=== PATIENT | male | born 1955 | race African-American/Black ===

== ENCOUNTER 2017-06-05 20:56 | Inpatient (IN) | payer OTHER ==
[~2017-06-05] VITALS: Ht 182.9 cm; Wt 113.4 kg
[2017-06-05] MEDS ORDERED: IPRATROPIUM BROMIDE (0.02%) 0.5MG/2.5ML NEB HHN STA (21:25)
[2017-06-05] MEDS ORDERED: ALBUTEROL (0.083%) 2.5MG/3ML NEB HHN STA (21:25)
[2017-06-05] MEDS ORDERED: METHYLPREDNISOLONE SOD SUCC 125 MG/2 ML VIAL IV STA (21:25)
[2017-06-05] MEDS ORDERED: MAGNESIUM 2 G PREMIX 50 ML IV ONE (21:30)
[2017-06-05 21:55] LABS: BASOPHILS % 0.8 % (0.0-2.0); EOSINOPHILS % 3.8 % (0.0-5.0); HEMATOCRIT. 34.1 % (42.0-52.0); HEMOGLOBIN. 11.2 g/dL (14.0-18.0); LYMPHOCYTES % 15.9 % (20.0-50.0); MEAN CORPUSCULAR HEMOGLOBIN 29.3 pg (28.0-32.0); MEAN CORPUSCULAR VOLUME 89.3 fL (80.0-94.0); MEAN PLATELET VOLUME 9.2 fl (7.4-10.4); MONOCYTES % 6.9 % (2.0-8.0); NEUTROPHILS % 72.6 % (40.0-76.0); PLATELET 157 x1000/uL (130-400); RED BLOOD CELL COUNT 3.82 mill/uL (4.7-6.1); RED CELL DISTRIBUTION WIDTH 14.3 % (11.6-14.6)
[2017-06-05 21:56] LABS: CHLORIDE 113 mEq/L (98-107)
[2017-06-05 21:59] LABS: INR 1.1; PROTHROMBIN TIME 11.4 sec (9.4-11.6)
[2017-06-05] MEDS ORDERED: FUROSEMIDE 20MG/2ML VIAL IVP ONE (22:00)
[2017-06-05 22:08] LABS: CARBON DIOXIDE 25 mEq/L (21-32); CREATINE KINASE 322 IU/L (39-308); ETHANOL BLOOD < 10 mg/dL
[2017-06-05 22:09] LABS: CREATINE KINASE MB FRACTION 5.2 ng/mL (0.5-3.6)
[2017-06-05] MEDS ORDERED: CLONIDINE 0.1MG TABLET PO ONE (23:15)
[2017-06-06] VITALS (7 sets, daily range): BP systolic 107–176; BP diastolic 74–103
[2017-06-06] MEDS ORDERED: HYDRALAZINE 20MG/ML VIAL IV ONE
[2017-06-06] MEDS ORDERED: LISI40TA4 PO (01:12)
[2017-06-06] MEDS ORDERED: FURO40TA5 PO (01:12)
[2017-06-06] MEDS ORDERED: LISI-604 PO (01:12)
[2017-06-06] MEDS ORDERED: TERA5CAP4 PO (01:12)
[2017-06-06] MEDS ORDERED: TERA10CA4 PO (01:12)
[2017-06-06] MEDS ORDERED: MINO2.5T19 PO (01:12)
[2017-06-06] MEDS ORDERED: SPIR50TA26 PO (01:12)
[2017-06-06] MEDS ORDERED: ASPI-1159 PO (01:12)
[2017-06-06] MEDS ORDERED: SPIR25TA4 PO (01:12)
[2017-06-06] MEDS ORDERED: POTA20TA82 PO (01:12)
[2017-06-06] MEDS ORDERED: CARV25TA47 PO (01:12)
[2017-06-06] MEDS: IPRATROPIUM/ALBUTEROL 0.5-3(2.5)MG/3ML NEB HHN SCH ×5 (04:42→20:13)
[2017-06-06] MEDS: LISINOPRIL 40MG TABLET PO SCH ×2 (05:07→09:38)
[2017-06-06] MEDS: CARVEDILOL 25MG TABLET PO SCH ×3 (05:07→21:00)
[2017-06-06] MEDS: METHYLPREDNISOLONE SOD SUCC 40 MG/ML VIAL IV SCH ×3 (05:07→22:01)
[2017-06-06 07:36] LABS: HEMATOCRIT. 35.3 % (42.0-52.0); HEMOGLOBIN. 11.8 g/dL (14.0-18.0); MEAN CORPUSCULAR HEMOGLOBIN 29.9 pg (28.0-32.0); MEAN CORPUSCULAR VOLUME 89.6 fL (80.0-94.0); MEAN PLATELET VOLUME 9.7 fl (7.4-10.4); PLATELET 154 x1000/uL (130-400); RED BLOOD CELL COUNT 3.94 mill/uL (4.7-6.1); RED CELL DISTRIBUTION WIDTH 14.5 % (11.6-14.6)
[2017-06-06 07:51] LABS: CARBON DIOXIDE 25 mEq/L (21-32); CHLORIDE 109 mEq/L (98-107)
[2017-06-06] MEDS ORDERED: TERAZOSIN HCL 5MG CAPSULE PO SCH (09:00)
[2017-06-06] MEDS ORDERED: FUROSEMIDE 40MG TABLET PO SCH (09:00)
[2017-06-06] MEDS ORDERED: ENOXAPARIN 40MG/0.4ML SYR SUBCUT SCH (09:00)
[2017-06-06] MEDS ORDERED: FUROSEMIDE 40MG/4ML VIAL IVP SCH (09:00)
[2017-06-06] MEDS: SPIRONOLACTONE 50MG TABLET PO SCH (09:37)
[2017-06-06] MEDS: POTASSIUM CHLORIDE 20MEQ TABLET SR PO SCH (09:38)
[2017-06-06] MEDS: FUROSEMIDE 40MG/4ML VIAL IVP SCH (09:38)
[2017-06-06] MEDS: OMEPRAZOLE 20MG CAPSULE EXTENDED RELEASE PO SCH (09:38)
[2017-06-06] MEDS: MINOXIDIL 2.5MG TABLET PO SCH (09:39)
[2017-06-06] MEDS: ENOXAPARIN 30MG/0.3ML SYR SUBCUT SCH ×2 (09:40→21:59)
[2017-06-06] MEDS: ASPIRIN 81MG EC TABLET PO SCH (09:40)
[2017-06-06] MEDS ORDERED: AMLODIPINE 5MG TABLET PO SCH (10:00)
[2017-06-06] MEDS ORDERED: MEDICATION NOT ON FORMULARY EA (Terazosin Hcl 10 MG) PO SCH (21:00)
[2017-06-06] MEDS: TERAZOSIN HCL 5MG CAPSULE PO SCH (21:59)
[2017-06-07] VITALS: BP 149/79
[2017-06-07] MEDS: IPRATROPIUM/ALBUTEROL 0.5-3(2.5)MG/3ML NEB HHN SCH ×6 (00:04→20:50)
[2017-06-07 04:00] VITALS: BP 123/78
[2017-06-07] MEDS: METHYLPREDNISOLONE SOD SUCC 40 MG/ML VIAL IV SCH ×3 (06:08→21:15)
[2017-06-07 07:02] LABS: HEMOGLOBIN. 11.8 g/dL (14.0-18.0); MEAN PLATELET VOLUME 10.4 fl (7.4-10.4); PLATELET 156 x1000/uL (130-400); RED BLOOD CELL COUNT 3.93 mill/uL (4.7-6.1); RED CELL DISTRIBUTION WIDTH 14.3 % (11.6-14.6)
[2017-06-07 07:56] LABS: TROPONIN I 0.05 ng/mL (0.00-0.04)
[2017-06-07 08:00] VITALS: BP 150/86
[2017-06-07] MEDS ORDERED: AMLODIPINE 5MG TABLET PO SCH (09:00)
[2017-06-07] MEDS: OMEPRAZOLE 20MG CAPSULE EXTENDED RELEASE PO SCH (10:01)
[2017-06-07] MEDS: ASPIRIN 81MG EC TABLET PO SCH (10:01)
[2017-06-07] MEDS: POTASSIUM CHLORIDE 20MEQ TABLET SR PO SCH (10:03)
[2017-06-07] MEDS: SPIRONOLACTONE 50MG TABLET PO SCH (10:03)
[2017-06-07] MEDS: CARVEDILOL 25MG TABLET PO SCH ×2 (10:03→21:12)
[2017-06-07] MEDS: LISINOPRIL 40MG TABLET PO SCH (10:03)
[2017-06-07] MEDS: FUROSEMIDE 40MG/4ML VIAL IVP SCH (10:04)
[2017-06-07] MEDS: MINOXIDIL 2.5MG TABLET PO SCH (10:04)
[2017-06-07] MEDS: ENOXAPARIN 30MG/0.3ML SYR SUBCUT SCH (10:04)
[2017-06-07] MEDS: AMLODIPINE 5MG TABLET PO SCH (17:57)
[2017-06-07 19:40] LABS: PLATELET ESTIMATE NORMAL
[2017-06-07 20:00] VITALS: BP 137/65
[2017-06-07] MEDS: FUROSEMIDE 40MG TABLET PO SCH (21:08)
[2017-06-07] MEDS: AMIODARONE HCL 200 MG TABLET PO SCH (21:13)
[2017-06-07] MEDS: TERAZOSIN HCL 5MG CAPSULE PO SCH (21:13)
[2017-06-08] VITALS: BP 128/64
[2017-06-08] MEDS: IPRATROPIUM/ALBUTEROL 0.5-3(2.5)MG/3ML NEB HHN SCH ×6 (00:24→20:21)
[2017-06-08 00:25] LABS: PLATELET ESTIMATE NORMAL
[2017-06-08 04:00] VITALS: BP 127/68
[2017-06-08] MEDS: METHYLPREDNISOLONE SOD SUCC 40 MG/ML VIAL IV SCH ×3 (05:08→21:17)
[2017-06-08 06:57] LABS: HEMATOCRIT. 35.1 % (42.0-52.0); HEMOGLOBIN. 11.7 g/dL (14.0-18.0); MEAN CORPUSCULAR HEMOGLOBIN 29.5 pg (28.0-32.0); MEAN CORPUSCULAR VOLUME 88.7 fL (80.0-94.0); MEAN PLATELET VOLUME 9.9 fl (7.4-10.4); PLATELET 150 x1000/uL (130-400); RED BLOOD CELL COUNT 3.96 mill/uL (4.7-6.1); RED CELL DISTRIBUTION WIDTH 14.2 % (11.6-14.6)
[2017-06-08 08:00] VITALS: BP 145/94
[2017-06-08] MEDS: ENOXAPARIN 40MG/0.4ML SYR SUBCUT SCH (09:13)
[2017-06-08] MEDS: POTASSIUM CHLORIDE 20MEQ TABLET SR PO SCH (09:14)
[2017-06-08] MEDS: FAMOTIDINE 20MG TABLET PO SCH ×2 (09:15→21:17)
[2017-06-08] MEDS: FUROSEMIDE 40MG TABLET PO SCH ×2 (09:15→21:17)
[2017-06-08] MEDS: ASPIRIN 81MG EC TABLET PO SCH (09:15)
[2017-06-08] MEDS: LISINOPRIL 40MG TABLET PO SCH (09:16)
[2017-06-08] MEDS: AMLODIPINE 5MG TABLET PO SCH ×2 (09:16→18:06)
[2017-06-08] MEDS: MINOXIDIL 2.5MG TABLET PO SCH (09:17)
[2017-06-08] MEDS: CARVEDILOL 25MG TABLET PO SCH ×2 (09:17→21:00)
[2017-06-08] MEDS: AMIODARONE HCL 200 MG TABLET PO SCH ×2 (09:18→21:00)
[2017-06-08] MEDS: SPIRONOLACTONE 50MG TABLET PO SCH (09:18)
[2017-06-08 10:14] LABS: PLATELET ESTIMATE NORMAL
[2017-06-08 12:00] VITALS: BP 140/91
[2017-06-08 16:00] VITALS: BP 126/67
[2017-06-08 19:58] VITALS: BP 120/66
[2017-06-08] MEDS: TERAZOSIN HCL 5MG CAPSULE PO SCH (21:17)
[2017-06-09] VITALS: BP 123/82
[2017-06-09] MEDS: IPRATROPIUM/ALBUTEROL 0.5-3(2.5)MG/3ML NEB HHN SCH ×7 (00:25→23:33)
[2017-06-09 03:57] VITALS: BP 124/84
[2017-06-09] MEDS: METHYLPREDNISOLONE SOD SUCC 40 MG/ML VIAL IV SCH ×3 (05:07→21:39)
[2017-06-09 08:00] VITALS: BP 125/54
[2017-06-09] MEDS: FUROSEMIDE 40MG TABLET PO SCH ×2 (09:12→21:39)
[2017-06-09] MEDS: LISINOPRIL 40MG TABLET PO SCH (09:12)
[2017-06-09] MEDS: AMIODARONE HCL 200 MG TABLET PO SCH ×2 (09:12→21:39)
[2017-06-09] MEDS: ENOXAPARIN 40MG/0.4ML SYR SUBCUT SCH (09:12)
[2017-06-09] MEDS: POTASSIUM CHLORIDE 20MEQ TABLET SR PO SCH (09:12)
[2017-06-09] MEDS: SPIRONOLACTONE 50MG TABLET PO SCH (09:13)
[2017-06-09] MEDS: MINOXIDIL 2.5MG TABLET PO SCH (09:13)
[2017-06-09] MEDS: FAMOTIDINE 20MG TABLET PO SCH ×2 (09:13→21:39)
[2017-06-09] MEDS: CARVEDILOL 25MG TABLET PO SCH ×2 (09:13→21:39)
[2017-06-09] MEDS: AMLODIPINE 5MG TABLET PO SCH ×2 (09:13→16:10)
[2017-06-09] MEDS: ASPIRIN 81MG EC TABLET PO SCH (09:14)
[2017-06-09 12:00] VITALS: BP 115/78
[2017-06-09 16:10] VITALS: BP 108/73
[2017-06-09 20:00] VITALS: BP 119/71
[2017-06-09] MEDS: TERAZOSIN HCL 5MG CAPSULE PO SCH (21:40)
[2017-06-10] VITALS: BP 131/80
[2017-06-10 04:00] VITALS: BP 115/77
[2017-06-10] MEDS: IPRATROPIUM/ALBUTEROL 0.5-3(2.5)MG/3ML NEB HHN SCH ×5 (04:32→20:31)
[2017-06-10] MEDS: METHYLPREDNISOLONE SOD SUCC 40 MG/ML VIAL IV SCH ×3 (05:55→21:19)
[2017-06-10 07:37] LABS: HEMATOCRIT. 37.8 % (42.0-52.0); HEMOGLOBIN. 12.6 g/dL (14.0-18.0); MEAN CORPUSCULAR HEMOGLOBIN 29.7 pg (28.0-32.0); MEAN CORPUSCULAR VOLUME 88.9 fL (80.0-94.0); MEAN PLATELET VOLUME 10.4 fl (7.4-10.4); PLATELET 157 x1000/uL (130-400); RED BLOOD CELL COUNT 4.25 mill/uL (4.7-6.1)
[2017-06-10 08:00] VITALS: BP 123/73
[2017-06-10] MEDS: AMIODARONE HCL 200 MG TABLET PO SCH ×2 (08:26→21:19)
[2017-06-10] MEDS: LISINOPRIL 40MG TABLET PO SCH (08:26)
[2017-06-10] MEDS: SPIRONOLACTONE 50MG TABLET PO SCH (08:27)
[2017-06-10] MEDS: AMLODIPINE 5MG TABLET PO SCH ×2 (08:27→17:00)
[2017-06-10] MEDS: POTASSIUM CHLORIDE 20MEQ TABLET SR PO SCH (08:27)
[2017-06-10] MEDS: MINOXIDIL 2.5MG TABLET PO SCH (08:27)
[2017-06-10] MEDS: FUROSEMIDE 40MG TABLET PO SCH ×2 (08:27→21:19)
[2017-06-10] MEDS: ENOXAPARIN 40MG/0.4ML SYR SUBCUT SCH (08:27)
[2017-06-10] MEDS: ASPIRIN 81MG EC TABLET PO SCH (08:27)
[2017-06-10] MEDS: FAMOTIDINE 20MG TABLET PO SCH ×2 (08:27→21:19)
[2017-06-10] MEDS: CARVEDILOL 25MG TABLET PO SCH ×2 (08:27→21:19)
[2017-06-10 10:11] LABS: BG BASE EXCESS 0.7 mmol/L (-2.0-2.0); BG CARBOXYHEMOGLOBIN 0.1 % (0.5-1.5); BG DEOXYHEMOGLOBIN 5.5 % (0.0-5.0); BG FRACTION INSPIRED OXYGEN 21; BG METHEMOGLOBIN 1.4 % (0.0-1.5); BG OXYGEN SATURATION 94.4 % (92.0-98.5); BG PCO2 44.4 mmHg (35.0-45.0); BG PH 7.386 (7.350-7.450); BG PO2 75.2 mmHg (75.0-100.0); BG SAMPLE SITE RIGHT RADIAL; BG TOTAL HEMOGLOBIN 13.6 g/dL (12.0-18.0); BG VENT MODE ROOM AIR
[2017-06-10 12:00] VITALS: BP 126/77
[2017-06-10 16:00] VITALS: BP 113/66
[2017-06-10 16:06] LABS: PLATELET ESTIMATE NORMAL
[2017-06-10 20:00] VITALS: BP 115/64
[2017-06-10] MEDS: TERAZOSIN HCL 5MG CAPSULE PO SCH (21:19)
[2017-06-11 00:05] VITALS: BP 116/73
[2017-06-11] MEDS: IPRATROPIUM/ALBUTEROL 0.5-3(2.5)MG/3ML NEB HHN SCH ×5 (00:41→16:33)
[2017-06-11 04:00] VITALS: BP 130/75
[2017-06-11] MEDS: METHYLPREDNISOLONE SOD SUCC 40 MG/ML VIAL IV SCH ×2 (05:42→13:36)
[2017-06-11 06:16] LABS: HEMATOCRIT. 38.2 % (42.0-52.0); HEMOGLOBIN. 12.8 g/dL (14.0-18.0); MEAN CORPUSCULAR HEMOGLOBIN 29.9 pg (28.0-32.0); MEAN CORPUSCULAR VOLUME 88.9 fL (80.0-94.0); MEAN PLATELET VOLUME 10.3 fl (7.4-10.4); PLATELET 160 x1000/uL (130-400)
[2017-06-11 08:00] VITALS: BP 123/83
[2017-06-11] MEDS: MINOXIDIL 2.5MG TABLET PO SCH (10:03)
[2017-06-11] MEDS: AMLODIPINE 5MG TABLET PO SCH ×2 (10:04→17:00)
[2017-06-11] MEDS: ASPIRIN 81MG EC TABLET PO SCH (10:04)
[2017-06-11] MEDS: SPIRONOLACTONE 50MG TABLET PO SCH (10:04)
[2017-06-11] MEDS: LISINOPRIL 40MG TABLET PO SCH (10:04)
[2017-06-11] MEDS: FAMOTIDINE 20MG TABLET PO SCH (10:04)
[2017-06-11] MEDS: CARVEDILOL 25MG TABLET PO SCH (10:04)
[2017-06-11] MEDS: ENOXAPARIN 40MG/0.4ML SYR SUBCUT SCH (10:05)
[2017-06-11] MEDS: FUROSEMIDE 40MG TABLET PO SCH (10:05)
[2017-06-11] MEDS: POTASSIUM CHLORIDE 20MEQ TABLET SR PO SCH (10:05)
[2017-06-11] MEDS: AMIODARONE HCL 200 MG TABLET PO SCH (10:07)
[2017-06-11 10:08] LABS: PLATELET ESTIMATE NORMAL
[2017-06-11 12:00] VITALS: BP 150/72
[2017-06-11 16:00] VITALS: BP 132/66
[2017-06-11 16:49] VITALS: BP 97/78
== END 2017-06-11 17:30 | disposition home or self-care (01) | DRG 194 ==
LOC: ER 21:15 → 7WST 21:30 → EDBEDREQ 22:06 → ENRESERV 22:32
PROVIDERS: ADMIT Internal Medicine; ATTEND Internal Medicine
DX: I13.0 Hypertensive heart and chronic kidney disease with heart failure and stage 1 through stage 4 chronic kidney disease, or unspecified chronic kidney disease (principal); J96.20 Acute and chronic respiratory failure, unspecified whether with hypoxia or hypercapnia; I47.2 Ventricular tachycardia; N17.9 Acute kidney failure, unspecified; E11.22 Type 2 diabetes mellitus with diabetic chronic kidney disease; I50.43 Acute on chronic combined systolic (congestive) and diastolic (congestive) heart failure; I27.20 Pulmonary hypertension, unspecified; J44.1 Chronic obstructive pulmonary disease with (acute) exacerbation; N18.9 Chronic kidney disease, unspecified; I25.5 Ischemic cardiomyopathy; I25.10 Atherosclerotic heart disease of native coronary artery without angina pectoris; I34.0 Nonrheumatic mitral (valve) insufficiency; I49.3 Ventricular premature depolarization; N40.0 Benign prostatic hyperplasia without lower urinary tract symptoms; F17.210 Nicotine dependence, cigarettes, uncomplicated; I36.1 Nonrheumatic tricuspid (valve) insufficiency; Z79.82 Long term (current) use of aspirin; Z79.899 Other long term (current) drug therapy; I25.2 Old myocardial infarction
CPT/HCPCS: 36415; 36600; 71010; 80048; 80053; 82375; 82550; 82553; 82805; 83605; 83690; 83735; 83880; 84443; 84484; 85025; 85610; 87040; 93005; 93306; 94640; 94664; 96365; 96375; 97162; 99291; G0482; J0360; J1650; J1940; J2920; J2930; J3475; J7611; J7620

== ENCOUNTER 2017-09-03 21:19 | Inpatient (IN) | payer OTHER ==
[~2017-09-03] VITALS: Ht 180.3 cm; Wt 103.0 kg
[~2017-09-03 21:19] MED LIST: ASPI-1159 PO; CARV25TA47 PO; FURO40TA5 PO; LISI40TA4 PO; MINO2.5T19 PO; POTA20TA82 PO; SPIR50TA26 PO; TERA10CA4 PO; TERA5CAP4 PO
[2017-09-04] VITALS (12 sets, daily range): BP systolic 127–177; BP diastolic 61–94
[2017-09-04] MEDS ORDERED: NITROGLYCERIN OINT 1GM/INCH UDPKT TD STA (00:31)
[2017-09-04] MEDS ORDERED: FUROSEMIDE 40MG/4ML VIAL IV STA (00:31)
[2017-09-04 00:48] LABS: BASOPHILS % 1.2 % (0.0-2.0); EOSINOPHILS % 3.6 % (0.0-5.0); HEMATOCRIT. 34.6 % (42.0-52.0); LYMPHOCYTES % 16.6 % (20.0-50.0); MEAN CORPUSCULAR HEMOGLOBIN 28.2 pg (28.0-32.0); MEAN CORPUSCULAR VOLUME 88.8 fL (80.0-94.0); MEAN PLATELET VOLUME 8.6 fl (7.4-10.4); MONOCYTES % 9.9 % (2.0-8.0); NEUTROPHILS % 68.7 % (40.0-76.0); PLATELET 215 x1000/uL (130-400); RED CELL DISTRIBUTION WIDTH 16.8 % (11.6-14.6)
[2017-09-04 01:05] LABS: CARBON DIOXIDE 26 mEq/L (21-32); CHLORIDE 111 mEq/L (98-107); TROPONIN I 0.09 ng/mL (0.00-0.04)
[2017-09-04] MEDS ORDERED: HEPARIN SODIUM 1,000 UNIT/1ML VIAL IV ONE (10:52)
[2017-09-04] MEDS ORDERED: NICARDIPINE 100MCG/ML 10ML VIAL (CATH LAB) IV ONE (10:52)
[2017-09-04] MEDS ORDERED: NITROGLYCERIN 50MCG/ML 10ML VIAL (CATH LAB) IV ONE (10:52)
[2017-09-04] MEDS ORDERED: ONDANSETRON HCL 4MG/2ML VIAL IV PRN (11:00)
[2017-09-04] MEDS ORDERED: ACETAMINOPHEN 325MG TABLET PO PRN ×2 (11:00→15:15)
[2017-09-04] MEDS ORDERED: DIPHENHYDRAMINE 50MG/ML VIAL IV PRN (11:00)
[2017-09-04] MEDS ORDERED: IPRATROPIUM/ALBUTEROL 0.5-3(2.5)MG/3ML NEB INH PRN (11:00)
[2017-09-04] MEDS ORDERED: HYDROCODONE/ACETAMINOPHEN 5/325MG TABLET PO PRN (11:00)
[2017-09-04] MEDS ORDERED: ISOS30TA6 PO (11:12)
[2017-09-04] MEDS ORDERED: LISI-604 PO (11:12)
[2017-09-04] MEDS ORDERED: AMIO100T4 PO (11:12)
[2017-09-04] MEDS ORDERED: OMEP20TA2 PO (11:12)
[2017-09-04] MEDS ORDERED: OMEP40CA34 PO (11:12)
[2017-09-04] MEDS: CLONIDINE 0.1MG TABLET PO PRN (11:41)
[2017-09-04] MEDS ORDERED: NITROGLYCERIN 0.4MG TABLET SL SL PRN (12:00)
[2017-09-04] MEDS ORDERED: NITROGLYCERIN 0.4MG TABLET SL SL SCH (12:00)
[2017-09-04] MEDS ORDERED: DEXTROSE 50% WATER 50ML SYRINGE IV PRN (12:45)
[2017-09-04] MEDS: INSULIN LISPRO 100 UNITS/ML SUBCUT SCH ×3 (12:50→21:00)
[2017-09-04] MEDS ORDERED: ASPIRIN 325MG TABLET PO NR (13:00)
[2017-09-04] MEDS: AMLODIPINE 5MG TABLET PO SCH ×2 (13:09→22:06)
[2017-09-04] MEDS: SODIUM CHLORIDE 0.45% 1,000 ML IV SCH (13:10)
[2017-09-04] MEDS ORDERED: IODIXANOL 320MG/ML 100 ML BOTTLE IV ONE (13:52)
[2017-09-04] MEDS ORDERED: MIDAZOLAM HCL 2 MG/2 ML VIAL ONE (13:52)
[2017-09-04] MEDS ORDERED: FENTANYL CITRATE/PF 50MCG/ML 2ML VIAL ONE (13:52)
[2017-09-04] MEDS ORDERED: LIDOCAINE HCL 1% 20ML VIAL (Pyxis) INJ ONE (13:53)
[2017-09-04] MEDS ORDERED: IOVERSOL 240MG/ML 100ML BOTTLE IV ONE (14:36)
[2017-09-04] MEDS ORDERED: CLOPIDOGREL 75MG TABLET ONE (14:42)
[2017-09-04] MEDS ORDERED: ASPIRIN 325MG TABLET ONE ×2 (14:45→14:58)
[2017-09-04] MEDS ORDERED: ACETYLCYSTEINE 100MG/ML 10% VIAL 4ML PO SCH ×2 (15:00→16:30)
[2017-09-04] MEDS ORDERED: SODIUM CHLORIDE 0.45% 1,000 ML IV SCH (15:15)
[2017-09-04] MEDS ORDERED: ATROPINE SULFATE 1MG/10ML SYR IV PRN (15:15)
[2017-09-04] MEDS: NITROGLYCERIN OINT 1GM/INCH UDPKT TD SCH ×2 (16:05→23:55)
[2017-09-04] MEDS: BLOOD SUGAR DIAGNOSTIC STRIP TEST SCH ×2 (16:41→21:39)
[2017-09-04] MEDS ORDERED: INFLUENZA VIRUS VACCINE 0.5ML SYR IM ONE (21:15)
[2017-09-04 22:59] LABS: CLARITY URINE CLEAR (CLEAR); COLOR URINE YELLOW (YELLOW); KETONES URINE NEGATIVE (NEGATIVE); LEUKOCYTE ESTERASE URINE NEGATIVE (NEGATIVE); NITRITE URINE NEGATIVE (NEGATIVE); OCCULT BLOOD URINE NEGATIVE (NEGATIVE); PH URINE 7.5 (4.5-8.0); PROTEIN URINE NEGATIVE (NEGATIVE); SPECIFIC GRAVITY URINE 1.025 (1.005-1.030)
[2017-09-05] VITALS (12 sets, daily range): BP systolic 134–165; BP diastolic 67–97
[2017-09-05 03:52] LABS: BASOPHILS % 1.7 % (0.0-2.0); EOSINOPHILS % 5.1 % (0.0-5.0); HEMATOCRIT. 33.8 % (42.0-52.0); HEMOGLOBIN. 10.7 g/dL (14.0-18.0); LYMPHOCYTES % 22.9 % (20.0-50.0); MEAN CORPUSCULAR HEMOGLOBIN 28.2 pg (28.0-32.0); NEUTROPHILS % 58.3 % (40.0-76.0); PLATELET 214 x1000/uL (130-400); RED BLOOD CELL COUNT 3.79 mill/uL (4.7-6.1); RED CELL DISTRIBUTION WIDTH 16.5 % (11.6-14.6)
[2017-09-05 04:21] LABS: CARBON DIOXIDE 28 mEq/L (21-32); CHLORIDE 107 mEq/L (98-107); HDL CHOLESTEROL 44 mg/dL (40-59); LDL CHOLESTEROL 68 mg/dL (5-100); TROPONIN I 0.14 ng/mL (0.00-0.04)
[2017-09-05] MEDS: SODIUM CHLORIDE 0.45% 1,000 ML IV SCH ×2 (05:31→21:55)
[2017-09-05] MEDS: NITROGLYCERIN OINT 1GM/INCH UDPKT TD SCH ×3 (06:15→21:54)
[2017-09-05] MEDS: ACETYLCYSTEINE 100MG/ML 10% VIAL 4ML PO SCH ×2 (06:17→19:00)
[2017-09-05] MEDS: BLOOD SUGAR DIAGNOSTIC STRIP TEST SCH ×4 (06:25→21:56)
[2017-09-05] MEDS ORDERED: ASPIRIN 81MG EC TABLET PO SCH (09:00)
[2017-09-05] MEDS: ASPIRIN 325MG TABLET PO SCH (09:03)
[2017-09-05] MEDS: CLOPIDOGREL 75MG TABLET PO SCH (09:03)
[2017-09-05] MEDS: AMLODIPINE 5MG TABLET PO SCH ×2 (09:03→21:54)
[2017-09-05] MEDS: INSULIN LISPRO 100 UNITS/ML SUBCUT SCH ×4 (09:06→21:00)
[2017-09-05] MEDS: FUROSEMIDE 40MG TABLET PO SCH (21:54)
[2017-09-06] VITALS (12 sets, daily range): BP systolic 143–171; BP diastolic 69–99
[2017-09-06] MEDS: NITROGLYCERIN OINT 1GM/INCH UDPKT TD SCH ×3 (06:48→21:12)
[2017-09-06] MEDS: ACETYLCYSTEINE 100MG/ML 10% VIAL 4ML PO SCH (06:49)
[2017-09-06] MEDS: BLOOD SUGAR DIAGNOSTIC STRIP TEST SCH ×4 (06:49→21:30)
[2017-09-06] MEDS: INSULIN LISPRO 100 UNITS/ML SUBCUT SCH ×4 (07:20→21:00)
[2017-09-06 07:42] LABS: BASOPHILS % 1.1 % (0.0-2.0); EOSINOPHILS % 5.9 % (0.0-5.0); HEMATOCRIT. 33.5 % (42.0-52.0); HEMOGLOBIN. 11.1 g/dL (14.0-18.0); LYMPHOCYTES % 13.5 % (20.0-50.0); MEAN CORPUSCULAR HEMOGLOBIN 29.4 pg (28.0-32.0); MEAN CORPUSCULAR VOLUME 88.7 fL (80.0-94.0); MEAN PLATELET VOLUME 9.2 fl (7.4-10.4); MONOCYTES % 9.8 % (2.0-8.0); NEUTROPHILS % 69.7 % (40.0-76.0); PLATELET 192 x1000/uL (130-400); RED BLOOD CELL COUNT 3.78 mill/uL (4.7-6.1); RED CELL DISTRIBUTION WIDTH 16.5 % (11.6-14.6)
[2017-09-06 07:51] LABS: CHLORIDE 104 mEq/L (98-107)
[2017-09-06 08:09] LABS: CARBON DIOXIDE 27 mEq/L (21-32)
[2017-09-06] MEDS: AMLODIPINE 5MG TABLET PO SCH ×2 (08:23→21:12)
[2017-09-06] MEDS: ASPIRIN 325MG TABLET PO SCH (08:23)
[2017-09-06] MEDS: CLOPIDOGREL 75MG TABLET PO SCH (08:23)
[2017-09-06] MEDS: FUROSEMIDE 40MG TABLET PO SCH ×2 (08:23→21:12)
[2017-09-06] MEDS: SODIUM CHLORIDE 0.45% 1,000 ML IV SCH (13:45)
[2017-09-06] MEDS: CLONIDINE 0.1MG TABLET PO PRN (18:27)
[2017-09-07] VITALS (12 sets, daily range): BP systolic 126–161; BP diastolic 62–98
[2017-09-07 05:45] LABS: BASOPHILS % 1.2 % (0.0-2.0); EOSINOPHILS % 5.9 % (0.0-5.0); HEMATOCRIT. 37.4 % (42.0-52.0); HEMOGLOBIN. 12.5 g/dL (14.0-18.0); LYMPHOCYTES % 15.3 % (20.0-50.0); MEAN CORPUSCULAR HEMOGLOBIN 29.7 pg (28.0-32.0); MEAN CORPUSCULAR VOLUME 88.6 fL (80.0-94.0); MEAN PLATELET VOLUME 8.8 fl (7.4-10.4); MONOCYTES % 10.1 % (2.0-8.0); NEUTROPHILS % 67.5 % (40.0-76.0); PLATELET 201 x1000/uL (130-400); RED BLOOD CELL COUNT 4.22 mill/uL (4.7-6.1); RED CELL DISTRIBUTION WIDTH 16.2 % (11.6-14.6)
[2017-09-07] MEDS: SODIUM CHLORIDE 0.45% 1,000 ML IV SCH (06:57)
[2017-09-07] MEDS: NITROGLYCERIN OINT 1GM/INCH UDPKT TD SCH ×3 (07:00→21:32)
[2017-09-07] MEDS: INSULIN LISPRO 100 UNITS/ML SUBCUT SCH ×4 (07:02→21:00)
[2017-09-07] MEDS: BLOOD SUGAR DIAGNOSTIC STRIP TEST SCH ×4 (07:02→21:00)
[2017-09-07] MEDS: FUROSEMIDE 40MG TABLET PO SCH ×2 (08:50→21:33)
[2017-09-07] MEDS: AMLODIPINE 5MG TABLET PO SCH ×2 (08:50→21:33)
[2017-09-07] MEDS: ASPIRIN 325MG TABLET PO SCH (08:50)
[2017-09-07] MEDS: CLOPIDOGREL 75MG TABLET PO SCH (08:50)
[2017-09-08] VITALS (12 sets, daily range): BP systolic 133–169; BP diastolic 63–99
[2017-09-08] MEDS: NITROGLYCERIN OINT 1GM/INCH UDPKT TD SCH ×3 (06:06→21:52)
[2017-09-08] MEDS: BLOOD SUGAR DIAGNOSTIC STRIP TEST SCH ×4 (06:50→21:00)
[2017-09-08] MEDS: INSULIN LISPRO 100 UNITS/ML SUBCUT SCH ×4 (07:20→21:00)
[2017-09-08] MEDS: ASPIRIN 325MG TABLET PO SCH (07:58)
[2017-09-08] MEDS: AMLODIPINE 5MG TABLET PO SCH ×2 (07:59→21:51)
[2017-09-08] MEDS: FUROSEMIDE 40MG TABLET PO SCH ×2 (07:59→09:00)
[2017-09-08] MEDS: CLOPIDOGREL 75MG TABLET PO SCH (07:59)
[2017-09-08 09:19] LABS: BASOPHILS % 1.5 % (0.0-2.0); EOSINOPHILS % 7.3 % (0.0-5.0); HEMATOCRIT. 38.8 % (42.0-52.0); HEMOGLOBIN. 12.6 g/dL (14.0-18.0); LYMPHOCYTES % 13.3 % (20.0-50.0); MEAN CORPUSCULAR HEMOGLOBIN 28.7 pg (28.0-32.0); MEAN CORPUSCULAR VOLUME 88.3 fL (80.0-94.0); MEAN PLATELET VOLUME 8.6 fl (7.4-10.4); MONOCYTES % 8.4 % (2.0-8.0); NEUTROPHILS % 69.5 % (40.0-76.0); PLATELET 216 x1000/uL (130-400); RED CELL DISTRIBUTION WIDTH 16.1 % (11.6-14.6)
[2017-09-08] MEDS ORDERED: ASPI-986 PO (11:57)
[2017-09-08] MEDS ORDERED: CLOP75TA16 PO (11:57)
[2017-09-08] MEDS ORDERED: FURO40TA5 PO (11:57)
[2017-09-08] MEDS ORDERED: AMLO5TAB88 PO (11:57)
[2017-09-09] VITALS (15 sets, daily range): BP systolic 97–174; BP diastolic 52–99
[2017-09-09] MEDS: CLONIDINE 0.1MG TABLET PO PRN (00:15)
[2017-09-09] MEDS: NITROGLYCERIN OINT 1GM/INCH UDPKT TD SCH ×3 (06:06→21:45)
[2017-09-09 06:27] LABS: BASOPHILS % 1.6 % (0.0-2.0); EOSINOPHILS % 7.9 % (0.0-5.0); HEMATOCRIT. 39.2 % (42.0-52.0); LYMPHOCYTES % 20.5 % (20.0-50.0); MEAN CORPUSCULAR HEMOGLOBIN 29.2 pg (28.0-32.0); MEAN CORPUSCULAR VOLUME 88.4 fL (80.0-94.0); MEAN PLATELET VOLUME 9.1 fl (7.4-10.4); MONOCYTES % 10.9 % (2.0-8.0); NEUTROPHILS % 59.1 % (40.0-76.0); PLATELET 203 x1000/uL (130-400); RED BLOOD CELL COUNT 4.44 mill/uL (4.7-6.1); RED CELL DISTRIBUTION WIDTH 16.5 % (11.6-14.6)
[2017-09-09] MEDS: BLOOD SUGAR DIAGNOSTIC STRIP TEST SCH ×4 (06:50→21:18)
[2017-09-09] MEDS: INSULIN LISPRO 100 UNITS/ML SUBCUT SCH ×4 (07:20→21:00)
[2017-09-09] MEDS: CLOPIDOGREL 75MG TABLET PO SCH (08:37)
[2017-09-09] MEDS: AMLODIPINE 5MG TABLET PO SCH ×2 (08:37→21:18)
[2017-09-09] MEDS: ASPIRIN 325MG TABLET PO SCH (08:37)
[2017-09-09] MEDS: FUROSEMIDE 40MG TABLET PO SCH (08:37)
[2017-09-10] VITALS (9 sets, daily range): BP systolic 104–149; BP diastolic 75–94
[2017-09-10 06:22] LABS: BASOPHILS % 1.7 % (0.0-2.0); EOSINOPHILS % 7.7 % (0.0-5.0); HEMATOCRIT. 41.5 % (42.0-52.0); HEMOGLOBIN. 13.7 g/dL (14.0-18.0); MEAN CORPUSCULAR HEMOGLOBIN 29.1 pg (28.0-32.0); MEAN CORPUSCULAR VOLUME 88.2 fL (80.0-94.0); MEAN PLATELET VOLUME 9.1 fl (7.4-10.4); MONOCYTES % 7.4 % (2.0-8.0); NEUTROPHILS % 66.2 % (40.0-76.0); PLATELET 206 x1000/uL (130-400); RED BLOOD CELL COUNT 4.71 mill/uL (4.7-6.1); RED CELL DISTRIBUTION WIDTH 16.1 % (11.6-14.6)
[2017-09-10] MEDS: CLONIDINE 0.1MG TABLET PO PRN (06:26)
[2017-09-10] MEDS: NITROGLYCERIN OINT 1GM/INCH UDPKT TD SCH ×2 (06:26→13:49)
[2017-09-10] MEDS: BLOOD SUGAR DIAGNOSTIC STRIP TEST SCH ×2 (06:31→11:21)
[2017-09-10] MEDS: INSULIN LISPRO 100 UNITS/ML SUBCUT SCH ×2 (07:20→11:58)
[2017-09-10] MEDS: ASPIRIN 325MG TABLET PO SCH (08:14)
[2017-09-10] MEDS: CLOPIDOGREL 75MG TABLET PO SCH (08:14)
[2017-09-10] MEDS: AMLODIPINE 5MG TABLET PO SCH (08:14)
[2017-09-10] MEDS: FUROSEMIDE 40MG TABLET PO SCH (08:38)
[2017-09-10] MEDS ORDERED: PNEUMOCOCCAL 23-VAL P-SAC VAC 0.5 ML IM ONE (13:30)
== END 2017-09-10 15:44 | DRG 175 ==
LOC: ER 21:19 → 6WST 09-04 02:30 → EDBEDREQ 09-04 02:47 → EDBEDREQTM 09-04 02:47 → ENRESERV 09-04 07:44 → 3WST 09-04 15:46
PROVIDERS: ADMIT Internal Medicine; ATTEND Internal Medicine
PROC: 4A023N7 Measurement of Cardiac Sampling and Pressure, Left Heart, Percutaneous Approach (ICD-10-PCS; principal; 2017-09-04)
PROC: 027034Z Dilation of Coronary Artery, One Artery with Drug-eluting Intraluminal Device, Percutaneous Approach (ICD-10-PCS; 2017-09-04)
PROC: B2111ZZ Fluoroscopy of Multiple Coronary Arteries using Low Osmolar Contrast (ICD-10-PCS; 2017-09-04)
DX: I25.110 Atherosclerotic heart disease of native coronary artery with unstable angina pectoris (principal); N17.0 Acute kidney failure with tubular necrosis; I50.23 Acute on chronic systolic (congestive) heart failure; E46 Unspecified protein-calorie malnutrition; I24.9 Acute ischemic heart disease, unspecified; I25.82 Chronic total occlusion of coronary artery; I13.0 Hypertensive heart and chronic kidney disease with heart failure and stage 1 through stage 4 chronic kidney disease, or unspecified chronic kidney disease; E11.22 Type 2 diabetes mellitus with diabetic chronic kidney disease; N18.9 Chronic kidney disease, unspecified; J44.9 Chronic obstructive pulmonary disease, unspecified; I25.5 Ischemic cardiomyopathy; D64.9 Anemia, unspecified; E66.9 Obesity, unspecified; E78.5 Hyperlipidemia, unspecified; I25.2 Old myocardial infarction; Z59.0 Homelessness; Z87.891 Personal history of nicotine dependence; Z68.31 Body mass index [BMI] 31.0-31.9, adult; Z79.899 Other long term (current) drug therapy
CPT/HCPCS: 36415; 71045; 76770; 80048; 80053; 80061; 81003; 82962; 83880; 84484; 85025; 85347; 90686; 92928; 93005; 93306; 93458; 94664; 96374; 97110; 97116; 97163; 97530; 97535; 99291; C1769; C1887; C1893; J1644; J1815; J1940; J2250; J3010; J3490; J7608; J7620; Q9967

== ENCOUNTER 2019-02-05 13:08 | Inpatient (IN) | payer MEDICARE, OTHER ==
[~2019-02-05] VITALS: Ht 180.3 cm; Wt 132.9 kg
[2019-02-05 08:00] VITALS: BP 160/100
[~2019-02-05 13:08] MED LIST changes: +AMLO5TAB88 PO; -ASPI-1159 PO; +ASPI-986 PO; -CARV25TA47 PO; +CLOP75TA4 PO; -LISI40TA4 PO; -MINO2.5T19 PO; +OMEP40CA34 PO; -SPIR50TA26 PO; -TERA10CA4 PO; -TERA5CAP4 PO
[2019-02-05] MEDS ORDERED: IPRATROPIUM BROMIDE (0.02%) 0.5MG/2.5ML NEB HHN STA (13:58)
[2019-02-05] MEDS ORDERED: METHYLPREDNISOLONE SOD SUCC 125 MG/2 ML VIAL IV STA (13:58)
[2019-02-05] MEDS ORDERED: ALBUTEROL (0.083%) 2.5MG/3ML NEB HHN STA (13:58)
[2019-02-05] MEDS ORDERED: ASPIRIN 81MG TABLET PO ONE (14:00)
[2019-02-05] MEDS ORDERED: FUROSEMIDE 40MG/4ML VIAL IV ONE (14:00)
[2019-02-05] MEDS ORDERED: NITROGLYCERIN OINT 1GM/INCH UDPKT TD ONE (14:00)
[2019-02-05 14:43] LABS: EOSINOPHILS % 0.6 % (0.0-5.0); HEMATOCRIT. 32.6 % (42.0-52.0); HEMOGLOBIN. 10.2 g/dL (14.0-18.0); LYMPHOCYTES % 14.9 % (20.0-50.0); MEAN CORPUSCULAR HEMOGLOBIN 26.8 pg (28.0-32.0); MEAN CORPUSCULAR VOLUME 85.4 fL (80.0-94.0); MEAN PLATELET VOLUME 8.9 fl (7.4-10.4); MONOCYTES % 9.4 % (2.0-8.0); NEUTROPHILS % 74.1 % (40.0-76.0); PLATELET 169 x1000/uL (130-400); RED BLOOD CELL COUNT 3.81 mill/uL (4.7-6.1); RED CELL DISTRIBUTION WIDTH 15.7 % (11.6-14.6)
[2019-02-05 14:49] LABS: CHLORIDE 109 mEq/L (98-107)
[2019-02-05 14:51] LABS: INR 1.4; PARTIAL THROMBOPLASTIN TIME 28.2 sec (23.4-31.0)
[2019-02-05] MEDS ORDERED: ACETAMINOPHEN 325MG TABLET PO PRN (16:00)
[2019-02-05] MEDS ORDERED: GUAIFENESIN 200MG/10ML SUGAR FREE UDC PO PRN (16:00)
[2019-02-05] MEDS ORDERED: CLONIDINE 0.1MG TABLET PO PRN (16:00)
[2019-02-05] MEDS ORDERED: TRAMADOL 50MG TABLET PO PRN (16:00)
[2019-02-05] MEDS ORDERED: ONDANSETRON HCL 4MG/2ML INJ IV PRN (16:00)
[2019-02-05] MEDS ORDERED: NITROGLYCERIN 0.4MG TABLET SL SL PRN (16:00)
[2019-02-05] MEDS ORDERED: LORAZEPAM 0.5MG TABLET PO PRN (16:00)
[2019-02-05] MEDS ORDERED: ZOLPIDEM TARTRATE 5MG TABLET PO PRN (16:00)
[2019-02-05] MEDS ORDERED: DOCUSATE SODIUM 100MG CAPSULE PO PRN (16:00)
[2019-02-05] MEDS ORDERED: MAGNESIUM/ALUMINUM HYDROXIDE/SIMETHICONE 30ML UDC PO PRN (16:00)
[2019-02-05] MEDS ORDERED: AZITHROMYCIN 500 MG in DEXT 5% WATER 250 ML IV NR (16:30)
[2019-02-05] MEDS ORDERED: ENOXAPARIN 40MG/0.4ML SYR SUBCUT NR (16:30)
[2019-02-05] MEDS ORDERED: GUAIFENESIN/DM 600MG/30MG ER TAB 12HR PO SCH (16:30)
[2019-02-05 17:17] LABS: FOLIC ACID (FOLATE) SERUM 15.1 ng/mL (>5.38)
[2019-02-05 20:00] VITALS: BP 169/72
[2019-02-05] MEDS ORDERED: IPRATROPIUM/ALBUTEROL 0.5-3(2.5)MG/3ML NEB HHN SCH (20:00)
[2019-02-05] MEDS ORDERED: DILTIAZEM HCL 60MG TABLET PO SCH (20:30)
[2019-02-05] MEDS ORDERED: DILTIAZEM HCL 30MG TABLET PO PRN (20:30)
[2019-02-05] MEDS: GUAIFENESIN/DM 600MG/30MG ER TAB 12HR PO SCH (20:55)
[2019-02-05] MEDS: FUROSEMIDE 40MG/4ML VIAL IVP SCH (20:56)
[2019-02-05] MEDS: FAMOTIDINE 20MG TABLET PO SCH (20:56)
[2019-02-05] MEDS: ENOXAPARIN 30MG/0.3ML SYR SUBCUT SCH (20:56)
[2019-02-05] MEDS ORDERED: AZITHROMYCIN 500 MG in DEXT 5% WATER 250 ML IV SCH (21:00)
[2019-02-05] MEDS ORDERED: DILTIAZEM HCL 5MG/ML 5ML VIAL IV PRN (21:15)
[2019-02-05] MEDS ORDERED: DILTIAZEM HCL 5MG/ML 5ML VIAL IV NR (21:15)
[2019-02-05] MEDS: SILDENAFIL CITRATE 20MG TABLET PO SCH (21:29)
[2019-02-05] MEDS: METHYLPREDNISOLONE SOD SUCC 125 MG/2 ML VIAL IV SCH (21:31)
[2019-02-05 23:16] LABS: CREATINE KINASE MB FRACTION 4.8 ng/mL (0.5-3.6)
[2019-02-06] VITALS: BP 95/61
[2019-02-06] MEDS ORDERED: FURO-151 MT (00:10)
[2019-02-06] MEDS ORDERED: NITR0.4T49 SL (00:11)
[2019-02-06] MEDS ORDERED: CLON0.1T MT (00:15)
[2019-02-06] MEDS ORDERED: GABA-531 MT (00:16)
[2019-02-06] MEDS ORDERED: TRAM50TA3 MT (00:17)
[2019-02-06] MEDS ORDERED: LOSA100T32 MT (00:19)
[2019-02-06] MEDS ORDERED: TERA5CAP4 MT (00:20)
[2019-02-06] MEDS ORDERED: CLON0.2T MT (00:21)
[2019-02-06] MEDS ORDERED: DIXL10 MT (00:21)
[2019-02-06 04:00] VITALS: BP 119/79
[2019-02-06] MEDS ORDERED: COR6 MT (04:47)
[2019-02-06] MEDS ORDERED: SENN-170 MT (04:48)
[2019-02-06] MEDS: METHYLPREDNISOLONE SOD SUCC 125 MG/2 ML VIAL IV SCH ×3 (05:35→21:14)
[2019-02-06] MEDS: DILTIAZEM HCL 90MG TABLET PO SCH ×4 (05:36→18:00)
[2019-02-06] MEDS: SILDENAFIL CITRATE 20MG TABLET PO SCH ×3 (05:36→21:15)
[2019-02-06 06:26] LABS: *AMPHETAMINES SCREEN URINE NEGATIVE (NEGATIVE); *COCAINE SCREEN URINE NEGATIVE (NEGATIVE); CANNABINOID URINE SCREEN NEGATIVE (NEGATIVE); METHADONE URINE SCREEN NEGATIVE (NEGATIVE); OPIATES URINE SCREEN NEGATIVE (NEGATIVE); PHENCYCLIDINE URINE SCREEN NEGATIVE (NEGATIVE)
[2019-02-06 06:27] LABS: *BARBITURATES SCREEN URINE NEGATIVE (NEGATIVE); *BENZODIAZEPINES SCREEN URINE NEGATIVE (NEGATIVE)
[2019-02-06 07:13] LABS: HEMATOCRIT. 32.2 % (42.0-52.0); MEAN CORPUSCULAR HEMOGLOBIN 26.3 pg (28.0-32.0); MEAN PLATELET VOLUME 9.1 fl (7.4-10.4); PLATELET 168 x1000/uL (130-400); RED BLOOD CELL COUNT 3.79 mill/uL (4.7-6.1); RED CELL DISTRIBUTION WIDTH 15.8 % (11.6-14.6)
[2019-02-06 07:31] LABS: CHLORIDE 106 mEq/L (98-107)
[2019-02-06 07:50] LABS: CREATINE KINASE 247 IU/L (39-308)
[2019-02-06 07:53] LABS: CREATINE KINASE MB FRACTION 5.3 ng/mL (0.5-3.6)
[2019-02-06 08:00] VITALS: BP 118/82
[2019-02-06] MEDS: LOSARTAN POTASSIUM 25 MG TABLET PO SCH ×2 (08:32→21:15)
[2019-02-06] MEDS: FUROSEMIDE 40MG/4ML VIAL IVP SCH ×2 (08:51→21:15)
[2019-02-06] MEDS: ENOXAPARIN 30MG/0.3ML SYR SUBCUT SCH ×2 (08:51→21:16)
[2019-02-06] MEDS: CLOPIDOGREL 75MG TABLET PO SCH (08:52)
[2019-02-06] MEDS: FAMOTIDINE 20MG TABLET PO SCH ×2 (08:52→21:15)
[2019-02-06] MEDS: ASPIRIN 81MG EC TABLET PO SCH (08:52)
[2019-02-06] MEDS: GUAIFENESIN/DM 600MG/30MG ER TAB 12HR PO SCH ×2 (08:53→21:15)
[2019-02-06] MEDS ORDERED: ENOXAPARIN 40MG/0.4ML SYR SUBCUT SCH (09:00)
[2019-02-06] MEDS ORDERED: AMLODIPINE 10MG TABLET PO SCH (09:00)
[2019-02-06] MEDS ORDERED: DEXTROSE 50% WATER 50ML SYRINGE IV PRN (09:30)
[2019-02-06] MEDS: IPRATROPIUM/ALBUTEROL 0.5-3(2.5)MG/3ML NEB INH PRN ×3 (10:53→21:21)
[2019-02-06] MEDS ORDERED: MAGNESIUM 2 G PREMIX 50 ML IV NR (11:30)
[2019-02-06] MEDS ORDERED: BLOOD SUGAR DIAGNOSTIC STRIP TEST SCH (11:45)
[2019-02-06 12:00] VITALS: BP 160/84
[2019-02-06] MEDS: INSULIN LISPRO 100 UNITS/ML SUBCUT SCH ×3 (12:15→21:00)
[2019-02-06] MEDS: BLOOD SUGAR DIAGNOSTIC STRIP TEST SCH ×3 (12:18→21:16)
[2019-02-06] MEDS: GABAPENTIN 300MG CAPSULE PO SCH ×2 (14:43→21:15)
[2019-02-06 16:00] VITALS: BP_SYST 160; BP_DIAS 84; BP_DIAS 98
[2019-02-06] MEDS ORDERED: METOLAZONE 5MG TABLET PO NR (16:00)
[2019-02-06] MEDS ORDERED: METOLAZONE 10MG TABLET PO NR (16:00)
[2019-02-06] MEDS: AZITHROMYCIN 500 MG in DEXT 5% WATER 250 ML IV SCH (17:27)
[2019-02-06 18:24] LABS: NUCLEATED RED BLOOD CELLS 1 /100 WBC; PLATELET ESTIMATE NORMAL
[2019-02-06 20:00] VITALS: BP 130/70
[2019-02-06 21:09] LABS: CLARITY URINE CLEAR (CLEAR); COLOR URINE YELLOW (YELLOW); KETONES URINE NEGATIVE (NEGATIVE); LEUKOCYTE ESTERASE URINE NEGATIVE (NEGATIVE); NITRITE URINE NEGATIVE (NEGATIVE); OCCULT BLOOD URINE NEGATIVE (NEGATIVE); PROTEIN URINE TRACE (NEGATIVE); SPECIFIC GRAVITY URINE 1.017 (1.005-1.030); UROBILINOGEN URINE 0.2 E.U./dL (0.2-1.0)
[2019-02-07] VITALS: BP 125/88
[2019-02-07] MEDS: IPRATROPIUM/ALBUTEROL 0.5-3(2.5)MG/3ML NEB INH PRN ×3 (00:42→08:48)
[2019-02-07] MEDS: DILTIAZEM HCL 90MG TABLET PO SCH ×4 (00:43→18:00)
[2019-02-07 04:00] VITALS: BP 149/84
[2019-02-07 06:25] LABS: HEMOGLOBIN. 10.4 g/dL (14.0-18.0); MEAN CORPUSCULAR HEMOGLOBIN 27.2 pg (28.0-32.0); MEAN CORPUSCULAR VOLUME 84.3 fL (80.0-94.0); PLATELET 186 x1000/uL (130-400); RED CELL DISTRIBUTION WIDTH 15.8 % (11.6-14.6)
[2019-02-07 06:32] LABS: CHLORIDE 101 mEq/L (98-107)
[2019-02-07] MEDS: SILDENAFIL CITRATE 20MG TABLET PO SCH ×3 (06:35→21:43)
[2019-02-07] MEDS: GABAPENTIN 300MG CAPSULE PO SCH ×3 (06:35→21:42)
[2019-02-07] MEDS: METHYLPREDNISOLONE SOD SUCC 125 MG/2 ML VIAL IV SCH ×3 (06:35→21:40)
[2019-02-07] MEDS: FUROSEMIDE 40MG/4ML VIAL IVP SCH ×3 (06:35→21:41)
[2019-02-07] MEDS: INSULIN LISPRO 100 UNITS/ML SUBCUT SCH ×4 (06:36→21:00)
[2019-02-07] MEDS: BLOOD SUGAR DIAGNOSTIC STRIP TEST SCH ×4 (06:36→21:41)
[2019-02-07 06:57] LABS: CREATINE KINASE MB FRACTION 5.9 ng/mL (0.5-3.6)
[2019-02-07 06:59] LABS: CREATINE KINASE 326 IU/L (39-308); LDL CHOLESTEROL 69 mg/dL (5-100)
[2019-02-07 07:00] LABS: HDL CHOLESTEROL 38 mg/dL (40-59)
[2019-02-07 08:00] VITALS: BP 105/69
[2019-02-07] MEDS: LOSARTAN POTASSIUM 25 MG TABLET PO SCH ×2 (09:00→21:00)
[2019-02-07] MEDS: ASPIRIN 81MG EC TABLET PO SCH (09:02)
[2019-02-07] MEDS: GUAIFENESIN/DM 600MG/30MG ER TAB 12HR PO SCH ×2 (09:02→21:42)
[2019-02-07] MEDS: CLOPIDOGREL 75MG TABLET PO SCH (09:02)
[2019-02-07] MEDS: FAMOTIDINE 20MG TABLET PO SCH ×2 (09:03→21:42)
[2019-02-07] MEDS: ENOXAPARIN 30MG/0.3ML SYR SUBCUT SCH ×2 (09:03→21:43)
[2019-02-07 10:26] LABS: PLATELET ESTIMATE NORMAL
[2019-02-07 12:00] VITALS: BP 103/74
[2019-02-07 16:00] VITALS: BP 98/73
[2019-02-07] MEDS: AZITHROMYCIN 500 MG in DEXT 5% WATER 250 ML IV SCH (18:33)
[2019-02-07 20:00] VITALS: BP 128/76
[2019-02-08] VITALS: BP 159/84
[2019-02-08] MEDS: DILTIAZEM HCL 90MG TABLET PO SCH ×3 (00:23→12:28)
[2019-02-08 04:00] VITALS: BP 130/70
[2019-02-08] MEDS: FUROSEMIDE 40MG/4ML VIAL IVP SCH (06:07)
[2019-02-08] MEDS: METHYLPREDNISOLONE SOD SUCC 125 MG/2 ML VIAL IV SCH (06:07)
[2019-02-08] MEDS: SILDENAFIL CITRATE 20MG TABLET PO SCH (06:08)
[2019-02-08] MEDS: GABAPENTIN 300MG CAPSULE PO SCH (06:08)
[2019-02-08 06:10] LABS: HEMATOCRIT. 34.4 % (42.0-52.0); HEMOGLOBIN. 11.1 g/dL (14.0-18.0); MEAN CORPUSCULAR HEMOGLOBIN 26.9 pg (28.0-32.0); MEAN CORPUSCULAR VOLUME 83.6 fL (80.0-94.0); MEAN PLATELET VOLUME 8.9 fl (7.4-10.4); PLATELET 224 x1000/uL (130-400); RED BLOOD CELL COUNT 4.12 mill/uL (4.7-6.1); RED CELL DISTRIBUTION WIDTH 15.5 % (11.6-14.6)
[2019-02-08] MEDS: BLOOD SUGAR DIAGNOSTIC STRIP TEST SCH ×2 (06:10→12:28)
[2019-02-08] MEDS: INSULIN LISPRO 100 UNITS/ML SUBCUT SCH (06:10)
[2019-02-08] MEDS: IPRATROPIUM/ALBUTEROL 0.5-3(2.5)MG/3ML NEB INH PRN (06:36)
[2019-02-08 06:50] LABS: CHLORIDE 93 mEq/L (98-107)
[2019-02-08 08:00] VITALS: BP 136/69
[2019-02-08 08:15] LABS: *CREATININE RANDOM URINE 171.1 mg/dL (Not Estab.); MICROALBUMIN RANDOM URINE 102.2 ug/mL (Not Estab.)
[2019-02-08] MEDS ORDERED: POTASSIUM CHLORIDE 20MEQ TABLET SR PO SCH (09:00)
[2019-02-08] MEDS: LOSARTAN POTASSIUM 25 MG TABLET PO SCH (09:28)
[2019-02-08] MEDS: CLOPIDOGREL 75MG TABLET PO SCH (09:28)
[2019-02-08] MEDS: GUAIFENESIN/DM 600MG/30MG ER TAB 12HR PO SCH (09:28)
[2019-02-08] MEDS: ASPIRIN 81MG EC TABLET PO SCH (09:28)
[2019-02-08] MEDS: FAMOTIDINE 20MG TABLET PO SCH (09:46)
[2019-02-08] MEDS: ENOXAPARIN 30MG/0.3ML SYR SUBCUT SCH (09:46)
[2019-02-08 11:09] VITALS: BP 136/69
[2019-02-08 12:00] VITALS: BP 160/94
[2019-02-08 17:28] LABS: PLATELET ESTIMATE NORMAL
[2019-02-08] MEDS ORDERED: AZITHROMYCIN 500 MG TABLET PO SCH (18:00)
== END 2019-02-08 13:15 | DRG 194 ==
LOC: ER 14:00 → EDBEDREQ 15:19 → 5WST 15:38 → EDBEDREQ 15:50 → SUPCPDRO 15:53 → ENRESERV 16:29
PROVIDERS: ADMIT Internal Medicine; ATTEND Internal Medicine
DX: I13.0 Hypertensive heart and chronic kidney disease with heart failure and stage 1 through stage 4 chronic kidney disease, or unspecified chronic kidney disease (principal); J96.00 Acute respiratory failure, unspecified whether with hypoxia or hypercapnia; N17.0 Acute kidney failure with tubular necrosis; E44.1 Mild protein-calorie malnutrition; E11.22 Type 2 diabetes mellitus with diabetic chronic kidney disease; I27.20 Pulmonary hypertension, unspecified; E11.42 Type 2 diabetes mellitus with diabetic polyneuropathy; J44.1 Chronic obstructive pulmonary disease with (acute) exacerbation; I50.33 Acute on chronic diastolic (congestive) heart failure; I25.10 Atherosclerotic heart disease of native coronary artery without angina pectoris; I25.5 Ischemic cardiomyopathy; I49.3 Ventricular premature depolarization; N18.9 Chronic kidney disease, unspecified; E66.01 Morbid (severe) obesity due to excess calories; D63.8 Anemia in other chronic diseases classified elsewhere; I48.0 Paroxysmal atrial fibrillation; E78.00 Pure hypercholesterolemia, unspecified; E78.5 Hyperlipidemia, unspecified; N40.0 Benign prostatic hyperplasia without lower urinary tract symptoms; K21.9 Gastro-esophageal reflux disease without esophagitis; Z87.891 Personal history of nicotine dependence; Z95.5 Presence of coronary angioplasty implant and graft; I25.2 Old myocardial infarction; Z79.899 Other long term (current) drug therapy; Z68.41 Body mass index [BMI] 40.0-44.9, adult; Z71.3 Dietary counseling and surveillance
CPT/HCPCS: 36415; 71045; 76770; 78582; 80048; 80061; 80305; 82043; 82550; 82553; 82570; 82607; 82746; 82962; 83036; 83540; 83550; 83735; 83880; 84443; 84484; 85379; 92610; 93005; 93306; 93970; 94640; 94644; 97110; 97162; 99285; A9558; J0456; J1650; J1815; J1940; J2930; J3475; J3490; J7050; J7060; J7611; J7620

== ENCOUNTER 2019-05-12 20:44 | Inpatient (IN) | payer MEDICARE, OTHER ==
[~2019-05-12] VITALS: Ht 180.3 cm; Wt 117.0 kg
[~2019-05-12 20:44] MED LIST changes: -AMLO5TAB88 PO; -ASPI-986 PO; +CLON0.1T MT; +CLON0.2T PO; +COR6 PO; +DIXL10 PO; +FURO-151 PO; -FURO40TA5 PO; +GABA-531 PO; +LOSA100T32 PO; +NITR0.4T49 SL; -OMEP40CA34 PO; -POTA20TA82 PO; +SENN-170 MT; +TERA5CAP4 PO; +TRAM50TA3 MT
[2019-05-12] MEDS ORDERED: ASPIRIN 81MG TABLET PO ONE (22:00)
[2019-05-12] MEDS: NITROGLYCERIN 0.4MG TABLET SL SL PRN ×3 (22:23→23:06)
[2019-05-12 22:36] LABS: BASOPHILS % 1.2 % (0.0-2.0); EOSINOPHILS % 9.6 % (0.0-5.0); HEMATOCRIT. 33.5 % (42.0-52.0); HEMOGLOBIN. 10.9 g/dL (14.0-18.0); LYMPHOCYTES % 10.2 % (20.0-50.0); MEAN CORPUSCULAR HEMOGLOBIN 27.2 pg (28.0-32.0); MEAN CORPUSCULAR VOLUME 83.7 fL (80.0-94.0); MONOCYTES % 7.8 % (2.0-8.0); NEUTROPHILS % 71.2 % (40.0-76.0); PLATELET 207 x1000/uL (130-400); RED BLOOD CELL COUNT 4.01 mill/uL (4.7-6.1); RED CELL DISTRIBUTION WIDTH 19.6 % (11.6-14.6)
[2019-05-12 22:38] LABS: CHLORIDE 113 mEq/L (98-107)
[2019-05-12] MEDS ORDERED: ENOXAPARIN 120MG/0.8ML SYR SUBCUT ONE (23:00)
[2019-05-13] VITALS (12 sets, daily range): BP systolic 142–185; BP diastolic 60–133
[2019-05-13] MEDS ORDERED: FAMO20TA8 PO (05:07)
[2019-05-13] MEDS ORDERED: POTA20TA82 PO (05:07)
[2019-05-13] MEDS ORDERED: DILT60TA35 PO (05:07)
[2019-05-13] MEDS ORDERED: PROM6.254 MT (05:07)
[2019-05-13] MEDS ORDERED: IPRATROPIUM/ALBUTEROL 0.5-3(2.5)MG/3ML NEB HHN PRN (06:00)
[2019-05-13] MEDS ORDERED: GUAIFENESIN 200MG/10ML SUGAR FREE UDC PO PRN (06:00)
[2019-05-13] MEDS ORDERED: DIPHENHYDRAMINE 50MG/ML VIAL IV PRN (06:00)
[2019-05-13] MEDS ORDERED: ACETAMINOPHEN 325MG TABLET PO PRN (06:00)
[2019-05-13] MEDS ORDERED: MORPHINE SULFATE 2 MG/ML CPJ (NOT FOR IM USE) IV PRN (06:00)
[2019-05-13] MEDS ORDERED: ONDANSETRON HCL 4MG/2ML INJ IV PRN (06:00)
[2019-05-13] MEDS ORDERED: HYDROCODONE/ACETAMINOPHEN 10/325MG TABLET PO PRN (06:00)
[2019-05-13] MEDS ORDERED: MAGNESIUM/ALUMINUM HYDROXIDE/SIMETHICONE 30ML UDC PO PRN (06:00)
[2019-05-13] MEDS ORDERED: NA PHOS,M-B/NA PHOS,DI-BA ENEMA 118ML PR PRN (06:00)
[2019-05-13] MEDS ORDERED: DOCUSATE SODIUM 100MG CAPSULE PO PRN (06:00)
[2019-05-13] MEDS ORDERED: LORAZEPAM 2MG/ML CPJ IV PRN (06:00)
[2019-05-13] MEDS: SODIUM CHLORIDE 0.9% INJ 3ML FLUSH IVF SCH ×3 (06:12→21:32)
[2019-05-13] MEDS: CLONIDINE 0.1MG TABLET PO PRN (06:21)
[2019-05-13 06:38] LABS: CREATINE KINASE MB FRACTION 4.2 ng/mL (0.5-3.6)
[2019-05-13] MEDS ORDERED: PNEUMOCOCCAL 23-VAL P-SAC VAC 0.5 ML IM ONE (07:30)
[2019-05-13] MEDS: ASPIRIN 81MG EC TABLET PO SCH (09:13)
[2019-05-13] MEDS ORDERED: FUROSEMIDE 40MG/4ML VIAL IVP SCH (11:00)
[2019-05-13] MEDS ORDERED: POTASSIUM CHLORIDE 20MEQ TABLET SR PO SCH (11:15)
[2019-05-13 11:42] LABS: CLARITY URINE CLEAR (CLEAR); COLOR URINE YELLOW (YELLOW); KETONES URINE TRACE (NEGATIVE); LEUKOCYTE ESTERASE URINE NEGATIVE (NEGATIVE); NITRITE URINE NEGATIVE (NEGATIVE); OCCULT BLOOD URINE NEGATIVE (NEGATIVE); PROTEIN URINE 2+ (NEGATIVE); SPECIFIC GRAVITY URINE 1.024 (1.005-1.030)
[2019-05-13] MEDS: CLOPIDOGREL 75MG TABLET PO SCH (12:18)
[2019-05-13] MEDS: LOSARTAN POTASSIUM 100 MG TABLET PO SCH (12:18)
[2019-05-13] MEDS: FUROSEMIDE 40MG/4ML VIAL IVP SCH (15:16)
[2019-05-13 16:12] LABS: CREATINE KINASE MB FRACTION 4.8 ng/mL (0.5-3.6)
[2019-05-13] MEDS: CARVEDILOL 6.25 MG TABLET PO SCH (20:53)
[2019-05-13] MEDS: ATORVASTATIN CALCIUM 40MG TABLET PO SCH (20:54)
[2019-05-13] MEDS: TERAZOSIN HCL 1MG CAPSULE PO SCH (20:54)
[2019-05-13] MEDS: ENOXAPARIN 30MG/0.3ML SYR SUBCUT SCH (20:55)
[2019-05-14] VITALS (13 sets, daily range): BP systolic 104–163; BP diastolic 47–100
[2019-05-14] MEDS: SODIUM CHLORIDE 0.9% INJ 3ML FLUSH IVF SCH ×3 (05:04→21:08)
[2019-05-14 06:39] LABS: BASOPHILS % 1.5 % (0.0-2.0); EOSINOPHILS % 14.9 % (0.0-5.0); HEMATOCRIT. 33.2 % (42.0-52.0); HEMOGLOBIN. 10.5 g/dL (14.0-18.0); LYMPHOCYTES % 14.4 % (20.0-50.0); MEAN CORPUSCULAR HEMOGLOBIN 26.9 pg (28.0-32.0); MEAN CORPUSCULAR VOLUME 85.2 fL (80.0-94.0); MEAN PLATELET VOLUME 8.3 fl (7.4-10.4); MONOCYTES % 7.5 % (2.0-8.0); NEUTROPHILS % 61.7 % (40.0-76.0); PLATELET 201 x1000/uL (130-400); RED CELL DISTRIBUTION WIDTH 19.6 % (11.6-14.6)
[2019-05-14 06:52] LABS: CHLORIDE 110 mEq/L (98-107)
[2019-05-14 07:07] LABS: LDL CHOLESTEROL 57 mg/dL (5-100)
[2019-05-14 07:10] LABS: HDL CHOLESTEROL 37 mg/dL (40-59)
[2019-05-14] MEDS: FUROSEMIDE 40MG/4ML VIAL IVP SCH ×2 (08:35→17:01)
[2019-05-14] MEDS: CLOPIDOGREL 75MG TABLET PO SCH (08:36)
[2019-05-14] MEDS: ENOXAPARIN 30MG/0.3ML SYR SUBCUT SCH ×2 (08:36→20:18)
[2019-05-14] MEDS: LOSARTAN POTASSIUM 100 MG TABLET PO SCH (08:36)
[2019-05-14] MEDS: CARVEDILOL 6.25 MG TABLET PO SCH ×2 (08:36→20:18)
[2019-05-14] MEDS: ASPIRIN 81MG EC TABLET PO SCH (08:36)
[2019-05-14] MEDS ORDERED: MAGNESIUM 2 G PREMIX 50 ML IV NR (13:00)
[2019-05-14] MEDS: ATORVASTATIN CALCIUM 40MG TABLET PO SCH (20:17)
[2019-05-14] MEDS: FAMOTIDINE 20MG TABLET PO SCH (20:18)
[2019-05-14] MEDS: TERAZOSIN HCL 1MG CAPSULE PO SCH (20:41)
[2019-05-15] VITALS (12 sets, daily range): BP systolic 122–155; BP diastolic 66–99
[2019-05-15] MEDS: SODIUM CHLORIDE 0.9% INJ 3ML FLUSH IVF SCH ×3 (05:50→22:35)
[2019-05-15 07:34] LABS: BASOPHILS % 1.7 % (0.0-2.0); EOSINOPHILS % 15.1 % (0.0-5.0); HEMATOCRIT. 33.4 % (42.0-52.0); HEMOGLOBIN. 10.6 g/dL (14.0-18.0); LYMPHOCYTES % 12.4 % (20.0-50.0); MEAN CORPUSCULAR HEMOGLOBIN 27.2 pg (28.0-32.0); MEAN CORPUSCULAR VOLUME 85.8 fL (80.0-94.0); MEAN PLATELET VOLUME 8.4 fl (7.4-10.4); MONOCYTES % 7.2 % (2.0-8.0); NEUTROPHILS % 63.6 % (40.0-76.0); PLATELET 201 x1000/uL (130-400); RED BLOOD CELL COUNT 3.89 mill/uL (4.7-6.1); RED CELL DISTRIBUTION WIDTH 19.6 % (11.6-14.6)
[2019-05-15] MEDS: FUROSEMIDE 40MG/4ML VIAL IVP SCH ×2 (09:27→17:37)
[2019-05-15] MEDS: CLOPIDOGREL 75MG TABLET PO SCH (09:27)
[2019-05-15] MEDS: FAMOTIDINE 20MG TABLET PO SCH ×2 (09:27→20:22)
[2019-05-15] MEDS: CARVEDILOL 6.25 MG TABLET PO SCH ×2 (09:28→20:21)
[2019-05-15] MEDS: ASPIRIN 81MG EC TABLET PO SCH (09:28)
[2019-05-15] MEDS: LOSARTAN POTASSIUM 100 MG TABLET PO SCH (09:28)
[2019-05-15] MEDS: AMLODIPINE 5MG TABLET PO SCH ×3 (11:13→20:22)
[2019-05-15] MEDS: ENOXAPARIN 30MG/0.3ML SYR SUBCUT SCH ×2 (11:13→20:23)
[2019-05-15] MEDS: ATORVASTATIN CALCIUM 40MG TABLET PO SCH (20:20)
[2019-05-15] MEDS: TERAZOSIN HCL 1MG CAPSULE PO SCH (20:21)
[2019-05-16] VITALS (12 sets, daily range): BP systolic 123–167; BP diastolic 65–99
[2019-05-16] MEDS: SODIUM CHLORIDE 0.9% INJ 3ML FLUSH IVF SCH ×3 (05:02→21:03)
[2019-05-16 05:55] LABS: BASOPHILS % 1.5 % (0.0-2.0); EOSINOPHILS % 15.6 % (0.0-5.0); HEMATOCRIT. 33.3 % (42.0-52.0); HEMOGLOBIN. 10.7 g/dL (14.0-18.0); LYMPHOCYTES % 13.2 % (20.0-50.0); MEAN CORPUSCULAR HEMOGLOBIN 27.3 pg (28.0-32.0); MEAN CORPUSCULAR VOLUME 85.2 fL (80.0-94.0); MEAN PLATELET VOLUME 8.3 fl (7.4-10.4); MONOCYTES % 7.6 % (2.0-8.0); NEUTROPHILS % 62.1 % (40.0-76.0); PLATELET 198 x1000/uL (130-400); RED BLOOD CELL COUNT 3.92 mill/uL (4.7-6.1); RED CELL DISTRIBUTION WIDTH 19.3 % (11.6-14.6)
[2019-05-16] MEDS: AMLODIPINE 5MG TABLET PO SCH ×2 (09:00→21:02)
[2019-05-16] MEDS: ASPIRIN 81MG EC TABLET PO SCH (09:34)
[2019-05-16] MEDS: CLOPIDOGREL 75MG TABLET PO SCH (09:34)
[2019-05-16] MEDS: LOSARTAN POTASSIUM 100 MG TABLET PO SCH (09:34)
[2019-05-16] MEDS: CARVEDILOL 6.25 MG TABLET PO SCH ×2 (09:34→21:02)
[2019-05-16] MEDS: FUROSEMIDE 40MG/4ML VIAL IVP SCH ×2 (09:34→16:01)
[2019-05-16] MEDS: FAMOTIDINE 20MG TABLET PO SCH ×2 (09:34→21:02)
[2019-05-16] MEDS: ENOXAPARIN 30MG/0.3ML SYR SUBCUT SCH (09:35)
[2019-05-16] MEDS: MUPIROCIN 2% OINT 22GM TOP SCH (13:30)
[2019-05-16] MEDS: TERAZOSIN HCL 1MG CAPSULE PO SCH (21:01)
[2019-05-16] MEDS: ATORVASTATIN CALCIUM 40MG TABLET PO SCH (21:01)
[2019-05-17] VITALS (11 sets, daily range): BP systolic 126–164; BP diastolic 69–128
[2019-05-17 06:00] LABS: HEMOGLOBIN. 10.5 g/dL (14.0-18.0); MEAN CORPUSCULAR VOLUME 84.9 fL (80.0-94.0); MEAN PLATELET VOLUME 8.5 fl (7.4-10.4); PLATELET 205 x1000/uL (130-400); RED BLOOD CELL COUNT 3.88 mill/uL (4.7-6.1); RED CELL DISTRIBUTION WIDTH 19.1 % (11.6-14.6)
[2019-05-17] MEDS: FUROSEMIDE 40MG/4ML VIAL IVP SCH ×2 (06:20→17:23)
[2019-05-17] MEDS: SODIUM CHLORIDE 0.9% INJ 3ML FLUSH IVF SCH ×3 (06:20→21:16)
[2019-05-17] MEDS: CLOPIDOGREL 75MG TABLET PO SCH (09:00)
[2019-05-17] MEDS ORDERED: ENOXAPARIN 30MG/0.3ML SYR SUBCUT SCH (09:00)
[2019-05-17] MEDS: ASPIRIN 81MG EC TABLET PO SCH (09:00)
[2019-05-17] MEDS: FAMOTIDINE 20MG TABLET PO SCH ×2 (09:00→21:15)
[2019-05-17] MEDS: MUPIROCIN 2% OINT 22GM TOP SCH (09:22)
[2019-05-17] MEDS ORDERED: NITROGLYCERIN 50MCG/ML 10ML VIAL (CATH LAB) IV ONE (09:31)
[2019-05-17] MEDS ORDERED: HEPARIN SODIUM 1,000 UNIT/1ML VIAL IV ONE (09:31)
[2019-05-17] MEDS ORDERED: NICARDIPINE 100MCG/ML 10ML VIAL (CATH LAB) IV ONE (09:31)
[2019-05-17] MEDS: LOSARTAN POTASSIUM 100 MG TABLET PO SCH (11:14)
[2019-05-17] MEDS: AMLODIPINE 5MG TABLET PO SCH ×2 (11:15→21:15)
[2019-05-17] MEDS: CARVEDILOL 6.25 MG TABLET PO SCH ×2 (11:21→21:15)
[2019-05-17] MEDS ORDERED: FENTANYL CITRATE/PF 50MCG/ML 2ML VIAL ONE (12:51)
[2019-05-17] MEDS ORDERED: LIDOCAINE HCL 1% 20ML VIAL (Pyxis) INJ ONE (12:51)
[2019-05-17] MEDS ORDERED: MIDAZOLAM HCL 2 MG/2 ML VIAL ONE (12:51)
[2019-05-17] MEDS ORDERED: IODIXANOL 320MG/ML 100 ML BOTTLE IV ONE (12:52)
[2019-05-17] MEDS ORDERED: ATROPINE SULFATE 1MG/10ML SYR IV PRN (14:45)
[2019-05-17] MEDS ORDERED: ACETAMINOPHEN 325MG TABLET PO PRN (14:45)
[2019-05-17 16:24] LABS: PLATELET ESTIMATE NORMAL
[2019-05-17] MEDS: ATORVASTATIN CALCIUM 40MG TABLET PO SCH (21:15)
[2019-05-17] MEDS: TERAZOSIN HCL 1MG CAPSULE PO SCH (21:15)
[2019-05-18] VITALS (12 sets, daily range): BP systolic 120–152; BP diastolic 58–88
[2019-05-18] MEDS: SODIUM CHLORIDE 0.9% INJ 3ML FLUSH IVF SCH ×3 (06:52→20:52)
[2019-05-18 06:54] LABS: HEMATOCRIT. 35.1 % (42.0-52.0); MEAN CORPUSCULAR HEMOGLOBIN 26.8 pg (28.0-32.0); MEAN CORPUSCULAR VOLUME 85.3 fL (80.0-94.0); MEAN PLATELET VOLUME 8.6 fl (7.4-10.4); PLATELET 211 x1000/uL (130-400); RED BLOOD CELL COUNT 4.11 mill/uL (4.7-6.1); RED CELL DISTRIBUTION WIDTH 18.8 % (11.6-14.6)
[2019-05-18] MEDS: FUROSEMIDE 40MG/4ML VIAL IVP SCH ×2 (06:56→18:32)
[2019-05-18 07:08] LABS: HEPATITIS B SURFACE ANTIGEN NEGATIVE
[2019-05-18] MEDS: FAMOTIDINE 20MG TABLET PO SCH ×2 (08:25→20:45)
[2019-05-18] MEDS: ASPIRIN 81MG EC TABLET PO SCH (08:26)
[2019-05-18] MEDS: CLOPIDOGREL 75MG TABLET PO SCH (08:26)
[2019-05-18] MEDS: LOSARTAN POTASSIUM 100 MG TABLET PO SCH (08:26)
[2019-05-18] MEDS: CARVEDILOL 6.25 MG TABLET PO SCH ×2 (08:27→20:46)
[2019-05-18] MEDS: AMLODIPINE 5MG TABLET PO SCH ×2 (08:42→20:52)
[2019-05-18] MEDS: MUPIROCIN 2% OINT 22GM TOP SCH (09:00)
[2019-05-18 09:09] LABS: BG BASE EXCESS 7.7 mmol/L (-2.0-2.0); BG CARBOXYHEMOGLOBIN 0.7 % (0.5-1.5); BG DEOXYHEMOGLOBIN 10.2 % (0.0-5.0); BG FRACTION INSPIRED OXYGEN 21; BG METHEMOGLOBIN 0.4 % (0.0-1.5); BG OXYGEN SATURATION 89.7 % (92.0-98.5); BG OXYHEMOGLOBIN 88.7 % (94.0-97.0); BG PCO2 55.4 mmHg (35.0-45.0); BG PH 7.406 (7.350-7.450); BG PO2 58.5 mmHg (75.0-100.0); BG SAMPLE SITE RIGHT BRACHIAL; BG TOTAL HEMOGLOBIN 12.4 g/dL (12.0-18.0); BG VENT MODE ROOM AIR
[2019-05-18 17:06] LABS: PLATELET ESTIMATE NORMAL
[2019-05-18] MEDS: ATORVASTATIN CALCIUM 40MG TABLET PO SCH (20:45)
[2019-05-18] MEDS: TERAZOSIN HCL 1MG CAPSULE PO SCH (20:45)
[2019-05-19] VITALS (13 sets, daily range): BP systolic 119–164; BP diastolic 56–120
[2019-05-19] MEDS: SODIUM CHLORIDE 0.9% INJ 3ML FLUSH IVF SCH ×3 (06:31→21:04)
[2019-05-19] MEDS: FUROSEMIDE 40MG/4ML VIAL IVP SCH ×2 (06:31→16:50)
[2019-05-19] MEDS: ASPIRIN 81MG EC TABLET PO SCH (08:21)
[2019-05-19] MEDS: FAMOTIDINE 20MG TABLET PO SCH ×2 (08:22→21:05)
[2019-05-19] MEDS: CLOPIDOGREL 75MG TABLET PO SCH (08:22)
[2019-05-19] MEDS: LOSARTAN POTASSIUM 100 MG TABLET PO SCH (08:22)
[2019-05-19] MEDS: AMLODIPINE 5MG TABLET PO SCH ×2 (08:24→21:12)
[2019-05-19 08:28] LABS: HEMATOCRIT. 35.9 % (42.0-52.0); HEMOGLOBIN. 11.2 g/dL (14.0-18.0); MEAN CORPUSCULAR HEMOGLOBIN 26.8 pg (28.0-32.0); MEAN CORPUSCULAR VOLUME 85.7 fL (80.0-94.0); MEAN PLATELET VOLUME 8.4 fl (7.4-10.4); PLATELET 209 x1000/uL (130-400); RED BLOOD CELL COUNT 4.19 mill/uL (4.7-6.1); RED CELL DISTRIBUTION WIDTH 18.5 % (11.6-14.6)
[2019-05-19] MEDS: MUPIROCIN 2% OINT 22GM TOP SCH (09:00)
[2019-05-19] MEDS: CARVEDILOL 6.25 MG TABLET PO SCH (09:54)
[2019-05-19 10:03] LABS: CHLORIDE 102 mEq/L (98-107)
[2019-05-19] MEDS ORDERED: MAGNESIUM 4 G PREMIX 100 ML IV SCH (12:00)
[2019-05-19 13:05] LABS: PLATELET ESTIMATE NORMAL
[2019-05-19] MEDS: HYDRALAZINE HCL 50MG TABLET PO SCH ×2 (16:54→22:27)
[2019-05-19] MEDS: ACYCLOVIR 400 MG TABLET PO SCH (18:27)
[2019-05-19] MEDS: CEPHALEXIN 250MG CAPSULE PO SCH (21:05)
[2019-05-19] MEDS: TERAZOSIN HCL 1MG CAPSULE PO SCH (21:05)
[2019-05-19] MEDS: ATORVASTATIN CALCIUM 40MG TABLET PO SCH (21:06)
[2019-05-19] MEDS: CARVEDILOL 12.5MG TABLET PO SCH (22:30)
[2019-05-20] VITALS: BP 129/65
[2019-05-20 04:00] VITALS: BP 105/58
[2019-05-20] MEDS: HYDRALAZINE HCL 50MG TABLET PO SCH ×3 (06:00→23:01)
[2019-05-20] MEDS: SODIUM CHLORIDE 0.9% INJ 3ML FLUSH IVF SCH ×3 (06:00→23:01)
[2019-05-20 07:35] LABS: HEMATOCRIT. 36.6 % (42.0-52.0); HEMOGLOBIN. 11.7 g/dL (14.0-18.0); MEAN CORPUSCULAR HEMOGLOBIN 27.2 pg (28.0-32.0); MEAN CORPUSCULAR VOLUME 84.8 fL (80.0-94.0); MEAN PLATELET VOLUME 8.7 fl (7.4-10.4); PLATELET 227 x1000/uL (130-400); RED BLOOD CELL COUNT 4.32 mill/uL (4.7-6.1); RED CELL DISTRIBUTION WIDTH 19.2 % (11.6-14.6)
[2019-05-20 08:00] VITALS: BP 129/73
[2019-05-20] MEDS: AMLODIPINE 5MG TABLET PO SCH ×2 (09:00→23:00)
[2019-05-20] MEDS: FUROSEMIDE 40MG/4ML VIAL IVP SCH ×2 (09:04→17:10)
[2019-05-20] MEDS: FAMOTIDINE 20MG TABLET PO SCH ×2 (09:04→23:01)
[2019-05-20] MEDS: CLOPIDOGREL 75MG TABLET PO SCH (09:04)
[2019-05-20] MEDS: CEPHALEXIN 250MG CAPSULE PO SCH ×2 (09:05→23:00)
[2019-05-20] MEDS: ASPIRIN 81MG EC TABLET PO SCH (09:05)
[2019-05-20] MEDS: LOSARTAN POTASSIUM 100 MG TABLET PO SCH (09:56)
[2019-05-20] MEDS: ACYCLOVIR 400 MG TABLET PO SCH ×3 (09:57→17:10)
[2019-05-20] MEDS: MUPIROCIN 2% OINT 22GM TOP SCH (09:57)
[2019-05-20] MEDS: CARVEDILOL 12.5MG TABLET PO SCH ×2 (09:57→23:01)
[2019-05-20 11:19] LABS: PLATELET ESTIMATE NORMAL
[2019-05-20 12:00] VITALS: BP 114/69
[2019-05-20 16:00] VITALS: BP 116/61
[2019-05-20 20:00] VITALS: BP 112/62
[2019-05-20] MEDS: ATORVASTATIN CALCIUM 40MG TABLET PO SCH (23:00)
[2019-05-20] MEDS: TERAZOSIN HCL 1MG CAPSULE PO SCH (23:02)
[2019-05-21] VITALS: BP_SYST 110; BP_SYST 112; BP_DIAS 60; BP_DIAS 62
[2019-05-21 04:00] VITALS: BP 127/73
[2019-05-21] MEDS: SODIUM CHLORIDE 0.9% INJ 3ML FLUSH IVF SCH ×3 (07:03→21:46)
[2019-05-21] MEDS: HYDRALAZINE HCL 50MG TABLET PO SCH ×3 (07:04→21:43)
[2019-05-21 07:09] LABS: BASOPHILS % 1.4 % (0.0-2.0); EOSINOPHILS % 21.8 % (0.0-5.0); HEMATOCRIT. 36.8 % (42.0-52.0); HEMOGLOBIN. 11.7 g/dL (14.0-18.0); LYMPHOCYTES % 11.1 % (20.0-50.0); MEAN CORPUSCULAR HEMOGLOBIN 27.1 pg (28.0-32.0); MEAN CORPUSCULAR VOLUME 85.2 fL (80.0-94.0); MEAN PLATELET VOLUME 8.3 fl (7.4-10.4); MONOCYTES % 7.5 % (2.0-8.0); NEUTROPHILS % 58.2 % (40.0-76.0); PLATELET 208 x1000/uL (130-400); RED BLOOD CELL COUNT 4.32 mill/uL (4.7-6.1); RED CELL DISTRIBUTION WIDTH 18.3 % (11.6-14.6)
[2019-05-21 07:51] LABS: CHLORIDE 101 mEq/L (98-107)
[2019-05-21] MEDS: FUROSEMIDE 40MG/4ML VIAL IVP SCH (07:54)
[2019-05-21 08:00] VITALS: BP 103/50
[2019-05-21] MEDS: CARVEDILOL 12.5MG TABLET PO SCH ×2 (09:00→21:40)
[2019-05-21] MEDS: AMLODIPINE 5MG TABLET PO SCH ×2 (09:00→21:00)
[2019-05-21] MEDS: LOSARTAN POTASSIUM 100 MG TABLET PO SCH (09:00)
[2019-05-21] MEDS: ASPIRIN 81MG EC TABLET PO SCH (09:36)
[2019-05-21] MEDS: MUPIROCIN 2% OINT 22GM TOP SCH (09:36)
[2019-05-21] MEDS: FAMOTIDINE 20MG TABLET PO SCH ×2 (09:36→21:43)
[2019-05-21] MEDS: CLOPIDOGREL 75MG TABLET PO SCH (09:36)
[2019-05-21] MEDS: CEPHALEXIN 250MG CAPSULE PO SCH ×2 (09:36→21:45)
[2019-05-21] MEDS: ACYCLOVIR 400 MG TABLET PO SCH ×3 (09:36→17:45)
[2019-05-21 12:00] VITALS: BP 100/56
[2019-05-21 16:00] VITALS: BP 108/64
[2019-05-21 20:00] VITALS: BP 128/63
[2019-05-21] MEDS: ATORVASTATIN CALCIUM 40MG TABLET PO SCH (21:39)
[2019-05-21] MEDS: FUROSEMIDE 40MG TABLET PO SCH (21:39)
[2019-05-21] MEDS: TERAZOSIN HCL 1MG CAPSULE PO SCH (21:40)
[2019-05-22] VITALS: BP 122/51
[2019-05-22 04:00] VITALS: BP 123/63
[2019-05-22] MEDS: HYDRALAZINE HCL 50MG TABLET PO SCH ×3 (06:06→21:00)
[2019-05-22] MEDS: SODIUM CHLORIDE 0.9% INJ 3ML FLUSH IVF SCH ×3 (06:06→21:01)
[2019-05-22 07:30] LABS: HEMATOCRIT. 37.6 % (42.0-52.0); HEMOGLOBIN. 11.9 g/dL (14.0-18.0); MEAN CORPUSCULAR VOLUME 85.6 fL (80.0-94.0); MEAN PLATELET VOLUME 8.7 fl (7.4-10.4); PLATELET 229 x1000/uL (130-400); RED BLOOD CELL COUNT 4.39 mill/uL (4.7-6.1); RED CELL DISTRIBUTION WIDTH 18.3 % (11.6-14.6)
[2019-05-22 08:00] VITALS: BP 106/41
[2019-05-22] MEDS: LOSARTAN POTASSIUM 100 MG TABLET PO SCH (09:00)
[2019-05-22] MEDS: AMLODIPINE 5MG TABLET PO SCH ×3 (09:00→21:01)
[2019-05-22] MEDS: CARVEDILOL 12.5MG TABLET PO SCH ×2 (09:00→21:01)
[2019-05-22] MEDS: ASPIRIN 81MG EC TABLET PO SCH (09:37)
[2019-05-22] MEDS: FUROSEMIDE 40MG TABLET PO SCH ×2 (09:37→21:00)
[2019-05-22] MEDS: CEPHALEXIN 250MG CAPSULE PO SCH ×2 (09:37→21:00)
[2019-05-22] MEDS: FAMOTIDINE 20MG TABLET PO SCH ×2 (09:37→21:01)
[2019-05-22] MEDS: CLOPIDOGREL 75MG TABLET PO SCH (09:37)
[2019-05-22] MEDS: ACYCLOVIR 400 MG TABLET PO SCH ×3 (09:38→17:20)
[2019-05-22] MEDS: MUPIROCIN 2% OINT 22GM TOP SCH (09:39)
[2019-05-22 10:20] LABS: PLATELET ESTIMATE NORMAL
[2019-05-22 12:00] VITALS: BP 157/99
[2019-05-22 16:00] VITALS: BP 131/73
[2019-05-22 20:00] VITALS: BP 147/80
[2019-05-22] MEDS: TERAZOSIN HCL 1MG CAPSULE PO SCH (21:00)
[2019-05-22] MEDS: ATORVASTATIN CALCIUM 40MG TABLET PO SCH (21:01)
[2019-05-23] VITALS: BP 153/73
[2019-05-23 04:00] VITALS: BP 136/67
[2019-05-23] MEDS: HYDRALAZINE HCL 50MG TABLET PO SCH ×3 (05:51→20:44)
[2019-05-23] MEDS: SODIUM CHLORIDE 0.9% INJ 3ML FLUSH IVF SCH ×3 (05:51→20:44)
[2019-05-23 07:55] LABS: CHLORIDE 101 mEq/L (98-107)
[2019-05-23 08:00] VITALS: BP 132/62
[2019-05-23] MEDS: CEPHALEXIN 250MG CAPSULE PO SCH ×2 (08:51→20:08)
[2019-05-23] MEDS: LOSARTAN POTASSIUM 100 MG TABLET PO SCH (08:51)
[2019-05-23] MEDS: ACYCLOVIR 400 MG TABLET PO SCH ×3 (08:51→17:16)
[2019-05-23] MEDS: CARVEDILOL 12.5MG TABLET PO SCH ×2 (08:51→20:07)
[2019-05-23] MEDS: CLOPIDOGREL 75MG TABLET PO SCH (08:52)
[2019-05-23] MEDS: MUPIROCIN 2% OINT 22GM TOP SCH (08:52)
[2019-05-23] MEDS: FUROSEMIDE 40MG TABLET PO SCH ×2 (08:52→20:08)
[2019-05-23] MEDS: FAMOTIDINE 20MG TABLET PO SCH ×2 (08:52→20:08)
[2019-05-23] MEDS: ASPIRIN 81MG EC TABLET PO SCH (08:52)
[2019-05-23] MEDS: AMLODIPINE 5MG TABLET PO SCH ×2 (09:00→20:09)
[2019-05-23 12:00] VITALS: BP 117/72
[2019-05-23 16:00] VITALS: BP 132/66
[2019-05-23 20:00] VITALS: BP 115/59
[2019-05-23] MEDS: TERAZOSIN HCL 1MG CAPSULE PO SCH (20:08)
[2019-05-23] MEDS: ATORVASTATIN CALCIUM 40MG TABLET PO SCH (20:44)
[2019-05-24] VITALS: BP 117/63
[2019-05-24 04:00] VITALS: BP 120/71
[2019-05-24] MEDS: SODIUM CHLORIDE 0.9% INJ 3ML FLUSH IVF SCH ×3 (05:31→21:01)
[2019-05-24] MEDS: HYDRALAZINE HCL 50MG TABLET PO SCH ×3 (05:32→22:18)
[2019-05-24 08:00] VITALS: BP 175/89
[2019-05-24] MEDS: MUPIROCIN 2% OINT 22GM TOP SCH (08:32)
[2019-05-24] MEDS: ASPIRIN 81MG EC TABLET PO SCH (08:32)
[2019-05-24] MEDS: FAMOTIDINE 20MG TABLET PO SCH ×2 (08:32→20:57)
[2019-05-24] MEDS: CLOPIDOGREL 75MG TABLET PO SCH (08:32)
[2019-05-24] MEDS: ACYCLOVIR 400 MG TABLET PO SCH ×3 (08:33→17:06)
[2019-05-24] MEDS: AMLODIPINE 5MG TABLET PO SCH ×3 (08:33→20:57)
[2019-05-24] MEDS: CEPHALEXIN 250MG CAPSULE PO SCH ×2 (08:33→20:55)
[2019-05-24] MEDS: LOSARTAN POTASSIUM 100 MG TABLET PO SCH (08:34)
[2019-05-24] MEDS: CARVEDILOL 12.5MG TABLET PO SCH ×2 (08:34→20:56)
[2019-05-24] MEDS: FUROSEMIDE 40MG TABLET PO SCH ×2 (08:34→20:56)
[2019-05-24 12:00] VITALS: BP_SYST 114; BP_SYST 154; BP_DIAS 61; BP_DIAS 82
[2019-05-24 16:00] VITALS: BP 126/63
[2019-05-24 20:00] VITALS: BP 144/80
[2019-05-24] MEDS: ATORVASTATIN CALCIUM 40MG TABLET PO SCH (20:55)
[2019-05-24] MEDS: TERAZOSIN HCL 1MG CAPSULE PO SCH (20:55)
[2019-05-25] VITALS: BP 136/79
[2019-05-25 04:00] VITALS: BP 165/98
[2019-05-25] MEDS: SODIUM CHLORIDE 0.9% INJ 3ML FLUSH IVF SCH ×3 (05:25→21:03)
[2019-05-25] MEDS: HYDRALAZINE HCL 50MG TABLET PO SCH ×3 (05:26→21:03)
[2019-05-25 06:36] LABS: CHLORIDE 104 mEq/L (98-107)
[2019-05-25 06:39] LABS: HEMATOCRIT. 36.7 % (42.0-52.0); HEMOGLOBIN. 11.8 g/dL (14.0-18.0); MEAN CORPUSCULAR HEMOGLOBIN 27.3 pg (28.0-32.0); MEAN CORPUSCULAR VOLUME 84.8 fL (80.0-94.0); MEAN PLATELET VOLUME 8.5 fl (7.4-10.4); PLATELET 217 x1000/uL (130-400); RED BLOOD CELL COUNT 4.33 mill/uL (4.7-6.1); RED CELL DISTRIBUTION WIDTH 18.4 % (11.6-14.6)
[2019-05-25 08:00] VITALS: BP 172/91
[2019-05-25] MEDS: CARVEDILOL 12.5MG TABLET PO SCH ×2 (08:42→21:00)
[2019-05-25] MEDS: CEPHALEXIN 250MG CAPSULE PO SCH ×2 (08:42→21:00)
[2019-05-25] MEDS: ASPIRIN 81MG EC TABLET PO SCH (08:42)
[2019-05-25] MEDS: LOSARTAN POTASSIUM 100 MG TABLET PO SCH (08:42)
[2019-05-25] MEDS: FAMOTIDINE 20MG TABLET PO SCH ×2 (08:42→20:59)
[2019-05-25] MEDS: FUROSEMIDE 40MG TABLET PO SCH ×2 (08:42→21:00)
[2019-05-25] MEDS: AMLODIPINE 5MG TABLET PO SCH ×2 (08:43→08:58)
[2019-05-25] MEDS: CLOPIDOGREL 75MG TABLET PO SCH (08:43)
[2019-05-25] MEDS: ACYCLOVIR 400 MG TABLET PO SCH ×3 (08:44→18:41)
[2019-05-25] MEDS: MUPIROCIN 2% OINT 22GM TOP SCH (08:44)
[2019-05-25 11:36] LABS: PLATELET ESTIMATE NORMAL
[2019-05-25 12:43] VITALS: BP 115/75
[2019-05-25] MEDS: ENOXAPARIN 30MG/0.3ML SYR SUBCUT SCH ×2 (13:59→21:03)
[2019-05-25 16:41] VITALS: BP 118/64
[2019-05-25 20:00] VITALS: BP 147/76
[2019-05-25] MEDS: ATORVASTATIN CALCIUM 40MG TABLET PO SCH (20:59)
[2019-05-25] MEDS: TERAZOSIN HCL 1MG CAPSULE PO SCH (21:00)
[2019-05-26] VITALS: BP 135/61
[2019-05-26 04:00] VITALS: BP 97/76
[2019-05-26] MEDS: HYDRALAZINE HCL 50MG TABLET PO SCH ×3 (06:00→21:56)
[2019-05-26] MEDS: SODIUM CHLORIDE 0.9% INJ 3ML FLUSH IVF SCH ×3 (06:04→21:57)
[2019-05-26 07:11] LABS: HEMATOCRIT. 38.2 % (42.0-52.0); HEMOGLOBIN. 12.2 g/dL (14.0-18.0); MEAN CORPUSCULAR HEMOGLOBIN 27.4 pg (28.0-32.0); MEAN CORPUSCULAR VOLUME 85.4 fL (80.0-94.0); MEAN PLATELET VOLUME 8.9 fl (7.4-10.4); PLATELET 228 x1000/uL (130-400); RED BLOOD CELL COUNT 4.48 mill/uL (4.7-6.1); RED CELL DISTRIBUTION WIDTH 18.1 % (11.6-14.6)
[2019-05-26 08:00] VITALS: BP 165/98
[2019-05-26 08:18] LABS: PLATELET ESTIMATE NORMAL
[2019-05-26] MEDS: ENOXAPARIN 30MG/0.3ML SYR SUBCUT SCH ×2 (08:38→21:57)
[2019-05-26] MEDS: LOSARTAN POTASSIUM 100 MG TABLET PO SCH (08:39)
[2019-05-26] MEDS: FUROSEMIDE 40MG TABLET PO SCH (08:39)
[2019-05-26] MEDS: CLOPIDOGREL 75MG TABLET PO SCH (08:39)
[2019-05-26] MEDS: ASPIRIN 81MG EC TABLET PO SCH (08:39)
[2019-05-26] MEDS: CLONIDINE 0.1MG TABLET PO PRN (08:39)
[2019-05-26] MEDS: CARVEDILOL 12.5MG TABLET PO SCH ×2 (08:39→21:55)
[2019-05-26 08:44] LABS: CHLORIDE 105 mEq/L (98-107)
[2019-05-26] MEDS: ACYCLOVIR 400 MG TABLET PO SCH ×3 (08:45→17:15)
[2019-05-26] MEDS: FAMOTIDINE 20MG TABLET PO SCH ×2 (08:46→21:55)
[2019-05-26] MEDS: MUPIROCIN 2% OINT 22GM TOP SCH (08:47)
[2019-05-26] MEDS: CEPHALEXIN 250MG CAPSULE PO SCH ×2 (08:47→21:55)
[2019-05-26 12:00] VITALS: BP 118/50
[2019-05-26 16:00] VITALS: BP 144/72
[2019-05-26 20:44] VITALS: BP 128/80
[2019-05-26] MEDS: ATORVASTATIN CALCIUM 40MG TABLET PO SCH (21:57)
[2019-05-26] MEDS: TERAZOSIN HCL 1MG CAPSULE PO SCH (21:57)
[2019-05-27 00:16] VITALS: BP 131/77
[2019-05-27 04:00] VITALS: BP 122/55
[2019-05-27] MEDS: SODIUM CHLORIDE 0.9% INJ 3ML FLUSH IVF SCH ×3 (06:13→21:35)
[2019-05-27] MEDS: HYDRALAZINE HCL 50MG TABLET PO SCH ×3 (06:13→22:00)
[2019-05-27 06:52] LABS: BASOPHILS % 2.2 % (0.0-2.0); EOSINOPHILS % 14.4 % (0.0-5.0); HEMATOCRIT. 35.9 % (42.0-52.0); HEMOGLOBIN. 11.5 g/dL (14.0-18.0); LYMPHOCYTES % 23.6 % (20.0-50.0); MEAN CORPUSCULAR HEMOGLOBIN 27.2 pg (28.0-32.0); MEAN CORPUSCULAR VOLUME 85.1 fL (80.0-94.0); MEAN PLATELET VOLUME 8.5 fl (7.4-10.4); MONOCYTES % 7.6 % (2.0-8.0); NEUTROPHILS % 52.2 % (40.0-76.0); PLATELET 215 x1000/uL (130-400); RED BLOOD CELL COUNT 4.22 mill/uL (4.7-6.1); RED CELL DISTRIBUTION WIDTH 18.3 % (11.6-14.6)
[2019-05-27 07:51] LABS: CHLORIDE 106 mEq/L (98-107)
[2019-05-27 08:00] VITALS: BP 122/69
[2019-05-27] MEDS: CLOPIDOGREL 75MG TABLET PO SCH (09:44)
[2019-05-27] MEDS: ASPIRIN 81MG EC TABLET PO SCH (09:45)
[2019-05-27] MEDS: FAMOTIDINE 20MG TABLET PO SCH ×2 (09:45→21:33)
[2019-05-27] MEDS: LOSARTAN POTASSIUM 100 MG TABLET PO SCH (09:45)
[2019-05-27] MEDS: CARVEDILOL 12.5MG TABLET PO SCH ×2 (09:45→21:33)
[2019-05-27] MEDS: ACYCLOVIR 400 MG TABLET PO SCH ×3 (09:46→17:06)
[2019-05-27] MEDS: MUPIROCIN 2% OINT 22GM TOP SCH (09:46)
[2019-05-27] MEDS: ENOXAPARIN 30MG/0.3ML SYR SUBCUT SCH ×2 (09:46→21:34)
[2019-05-27 12:00] VITALS: BP 100/53
[2019-05-27 16:14] VITALS: BP 112/60
[2019-05-27 20:00] VITALS: BP 122/77
[2019-05-27] MEDS: TERAZOSIN HCL 1MG CAPSULE PO SCH (21:33)
[2019-05-27] MEDS: ATORVASTATIN CALCIUM 40MG TABLET PO SCH (21:34)
[2019-05-28] VITALS (7 sets, daily range): BP systolic 102–160; BP diastolic 57–92
[2019-05-28] MEDS: HYDRALAZINE HCL 50MG TABLET PO SCH ×3 (05:09→22:00)
[2019-05-28] MEDS: SODIUM CHLORIDE 0.9% INJ 3ML FLUSH IVF SCH ×3 (05:09→20:12)
[2019-05-28 06:58] LABS: CHLORIDE 105 mEq/L (98-107)
[2019-05-28 07:32] LABS: BASOPHILS % 1.9 % (0.0-2.0); EOSINOPHILS % 13.2 % (0.0-5.0); HEMATOCRIT. 37.4 % (42.0-52.0); LYMPHOCYTES % 19.1 % (20.0-50.0); MEAN CORPUSCULAR HEMOGLOBIN 27.3 pg (28.0-32.0); MEAN CORPUSCULAR VOLUME 84.9 fL (80.0-94.0); MEAN PLATELET VOLUME 8.9 fl (7.4-10.4); MONOCYTES % 9.4 % (2.0-8.0); NEUTROPHILS % 56.4 % (40.0-76.0); PLATELET 234 x1000/uL (130-400); RED BLOOD CELL COUNT 4.41 mill/uL (4.7-6.1); RED CELL DISTRIBUTION WIDTH 18.1 % (11.6-14.6)
[2019-05-28] MEDS: FAMOTIDINE 20MG TABLET PO SCH ×2 (09:51→20:09)
[2019-05-28] MEDS: CLOPIDOGREL 75MG TABLET PO SCH (09:51)
[2019-05-28] MEDS: ASPIRIN 81MG EC TABLET PO SCH (09:51)
[2019-05-28] MEDS: LOSARTAN POTASSIUM 100 MG TABLET PO SCH (09:51)
[2019-05-28] MEDS: CARVEDILOL 12.5MG TABLET PO SCH ×2 (09:52→20:08)
[2019-05-28] MEDS: MUPIROCIN 2% OINT 22GM TOP SCH (09:59)
[2019-05-28] MEDS: ENOXAPARIN 30MG/0.3ML SYR SUBCUT SCH ×2 (09:59→20:07)
[2019-05-28] MEDS: ACYCLOVIR 400 MG TABLET PO SCH (09:59)
[2019-05-28] MEDS: FUROSEMIDE 40MG/4ML VIAL IVP SCH (14:21)
[2019-05-28] MEDS: ATORVASTATIN CALCIUM 40MG TABLET PO SCH (20:08)
[2019-05-28] MEDS: TERAZOSIN HCL 1MG CAPSULE PO SCH (20:09)
[2019-05-29] MEDS: HYDRALAZINE HCL 50MG TABLET PO SCH ×3 (06:05→21:57)
[2019-05-29] MEDS: SODIUM CHLORIDE 0.9% INJ 3ML FLUSH IVF SCH ×3 (06:05→21:58)
[2019-05-29 08:00] VITALS: BP 118/61
[2019-05-29] MEDS: FAMOTIDINE 20MG TABLET PO SCH ×2 (09:09→21:56)
[2019-05-29] MEDS: ASPIRIN 81MG EC TABLET PO SCH (09:10)
[2019-05-29] MEDS: CARVEDILOL 12.5MG TABLET PO SCH ×2 (09:10→21:00)
[2019-05-29] MEDS: LOSARTAN POTASSIUM 100 MG TABLET PO SCH (09:10)
[2019-05-29] MEDS: ENOXAPARIN 30MG/0.3ML SYR SUBCUT SCH ×2 (09:11→21:58)
[2019-05-29] MEDS: CLOPIDOGREL 75MG TABLET PO SCH (09:11)
[2019-05-29] MEDS: FUROSEMIDE 40MG/4ML VIAL IVP SCH (09:13)
[2019-05-29] MEDS: MUPIROCIN 2% OINT 22GM TOP SCH (09:18)
[2019-05-29 12:00] VITALS: BP 146/77
[2019-05-29 13:21] LABS: BASOPHILS % 2.1 % (0.0-2.0); EOSINOPHILS % 13.6 % (0.0-5.0); HEMATOCRIT. 36.6 % (42.0-52.0); HEMOGLOBIN. 11.7 g/dL (14.0-18.0); LYMPHOCYTES % 14.1 % (20.0-50.0); MEAN CORPUSCULAR HEMOGLOBIN 27.5 pg (28.0-32.0); MEAN CORPUSCULAR VOLUME 86.3 fL (80.0-94.0); MEAN PLATELET VOLUME 8.6 fl (7.4-10.4); MONOCYTES % 11.6 % (2.0-8.0); NEUTROPHILS % 58.6 % (40.0-76.0); PLATELET 231 x1000/uL (130-400); RED BLOOD CELL COUNT 4.24 mill/uL (4.7-6.1); RED CELL DISTRIBUTION WIDTH 18.3 % (11.6-14.6)
[2019-05-29 16:00] VITALS: BP 147/87
[2019-05-29 20:00] VITALS: BP 147/76
[2019-05-29] MEDS: TERAZOSIN HCL 1MG CAPSULE PO SCH (21:55)
[2019-05-29] MEDS: ATORVASTATIN CALCIUM 40MG TABLET PO SCH (21:56)
[2019-05-30] VITALS: BP 121/80
[2019-05-30 04:00] VITALS: BP 126/72
[2019-05-30] MEDS: SODIUM CHLORIDE 0.9% INJ 3ML FLUSH IVF SCH ×3 (06:03→21:04)
[2019-05-30] MEDS: HYDRALAZINE HCL 50MG TABLET PO SCH ×3 (06:03→21:05)
[2019-05-30] MEDS: CLOPIDOGREL 75MG TABLET PO SCH (08:49)
[2019-05-30] MEDS: ASPIRIN 81MG EC TABLET PO SCH (08:49)
[2019-05-30] MEDS: LOSARTAN POTASSIUM 100 MG TABLET PO SCH (08:50)
[2019-05-30] MEDS: CARVEDILOL 12.5MG TABLET PO SCH ×2 (08:50→21:05)
[2019-05-30] MEDS: FAMOTIDINE 20MG TABLET PO SCH ×2 (08:51→21:04)
[2019-05-30] MEDS: ENOXAPARIN 30MG/0.3ML SYR SUBCUT SCH ×2 (08:51→21:04)
[2019-05-30] MEDS: FUROSEMIDE 40MG/4ML VIAL IVP SCH (09:04)
[2019-05-30 09:33] VITALS: BP 106/87
[2019-05-30] MEDS: MUPIROCIN 2% OINT 22GM TOP SCH (12:18)
[2019-05-30 13:09] VITALS: BP 118/62
[2019-05-30 16:51] VITALS: BP 110/62
[2019-05-30 20:00] VITALS: BP 128/72
[2019-05-30] MEDS: ATORVASTATIN CALCIUM 40MG TABLET PO SCH (21:04)
[2019-05-30] MEDS: TERAZOSIN HCL 1MG CAPSULE PO SCH (21:05)
[2019-05-31] VITALS: BP 133/82
[2019-05-31 04:00] VITALS: BP 144/85
[2019-05-31] MEDS: HYDRALAZINE HCL 50MG TABLET PO SCH ×2 (05:59→16:06)
[2019-05-31] MEDS: SODIUM CHLORIDE 0.9% INJ 3ML FLUSH IVF SCH ×2 (05:59→14:00)
[2019-05-31 08:00] VITALS: BP 139/64
[2019-05-31] MEDS: CLOPIDOGREL 75MG TABLET PO SCH (09:52)
[2019-05-31] MEDS: FAMOTIDINE 20MG TABLET PO SCH ×2 (09:53→21:14)
[2019-05-31] MEDS: CARVEDILOL 12.5MG TABLET PO SCH ×2 (09:53→21:15)
[2019-05-31] MEDS: ASPIRIN 81MG EC TABLET PO SCH (09:53)
[2019-05-31] MEDS: ENOXAPARIN 30MG/0.3ML SYR SUBCUT SCH ×2 (09:54→21:15)
[2019-05-31] MEDS: FUROSEMIDE 40MG/4ML VIAL IVP SCH (09:54)
[2019-05-31] MEDS: MUPIROCIN 2% OINT 22GM TOP SCH (09:56)
[2019-05-31] MEDS: LOSARTAN POTASSIUM 100 MG TABLET PO SCH (09:56)
[2019-05-31 12:00] VITALS: BP 122/60
[2019-05-31 17:22] VITALS: BP 116/57
[2019-05-31 20:00] VITALS: BP 144/68
[2019-05-31] MEDS: TERAZOSIN HCL 1MG CAPSULE PO SCH (21:14)
[2019-05-31] MEDS: ATORVASTATIN CALCIUM 40MG TABLET PO SCH (21:14)
== END 2019-05-31 22:56 | DRG 190 ==
LOC: ER 20:44 → 3WST 23:46 → EDBEDREQTM 23:48 → EDBEDREQ 23:48 → EDBEDREQSVC 23:48 → ENRESERV 05-13 02:00 → 7WST 05-19 22:55
PROVIDERS: ADMIT Internal Medicine; ATTEND Internal Medicine
PROC: 4A023N7 Measurement of Cardiac Sampling and Pressure, Left Heart, Percutaneous Approach (ICD-10-PCS; principal; 2019-05-17)
PROC: B2111ZZ Fluoroscopy of Multiple Coronary Arteries using Low Osmolar Contrast (ICD-10-PCS; 2019-05-17)
PROC: B2151ZZ Fluoroscopy of Left Heart using Low Osmolar Contrast (ICD-10-PCS; 2019-05-17)
DX: I21.4 Non-ST elevation (NSTEMI) myocardial infarction (principal); N17.0 Acute kidney failure with tubular necrosis; I50.23 Acute on chronic systolic (congestive) heart failure; E66.01 Morbid (severe) obesity due to excess calories; I27.20 Pulmonary hypertension, unspecified; I13.0 Hypertensive heart and chronic kidney disease with heart failure and stage 1 through stage 4 chronic kidney disease, or unspecified chronic kidney disease; I25.10 Atherosclerotic heart disease of native coronary artery without angina pectoris; I48.0 Paroxysmal atrial fibrillation; D63.1 Anemia in chronic kidney disease; I25.5 Ischemic cardiomyopathy; I47.1 Supraventricular tachycardia; F10.21 Alcohol dependence, in remission; J44.9 Chronic obstructive pulmonary disease, unspecified; N18.3 Chronic kidney disease, stage 3 (moderate); N40.0 Benign prostatic hyperplasia without lower urinary tract symptoms; E78.00 Pure hypercholesterolemia, unspecified; K59.00 Constipation, unspecified; S70.321A Blister (nonthermal), right thigh, initial encounter; S80.222A Blister (nonthermal), left knee, initial encounter; S80.221A Blister (nonthermal), right knee, initial encounter; X58.XXXA Exposure to other specified factors, initial encounter; L03.90 Cellulitis, unspecified; Z59.0 Homelessness; Z79.02 Long term (current) use of antithrombotics/antiplatelets; Z95.5 Presence of coronary angioplasty implant and graft; Z79.899 Other long term (current) drug therapy; I25.2 Old myocardial infarction; Z86.718 Personal history of other venous thrombosis and embolism; Z82.49 Family history of ischemic heart disease and other diseases of the circulatory system; Z86.14 Personal history of Methicillin resistant Staphylococcus aureus infection; Z87.891 Personal history of nicotine dependence; Y93.89 Activity, other specified; Y92.89 Other specified places as the place of occurrence of the external cause; Y99.8 Other external cause status; Z68.36 Body mass index [BMI] 36.0-36.9, adult
CPT/HCPCS: 36415; 36600; 71045; 76770; 80048; 80061; 81003; 82375; 82550; 82553; 82570; 82805; 83036; 83735; 83880; 84156; 84484; 86803; 87340; 93005; 93306; 93458; 93970; 94618; 97116; 97162; 99291; C1769; C1887; C1893; J1644; J1650; J1940; J2250; J3010; J3475; J3490; Q9967

== ENCOUNTER 2019-06-16 22:56 | Inpatient (IN) | payer MEDICARE, OTHER ==
[~2019-06-16] VITALS: Ht 180.3 cm; Wt 116.6 kg
[~2019-06-16 22:56] MED LIST changes: -CLON0.1T MT; +DILT60TA35 PO; +FAMO20TA8 PO; +POTA20TA82 PO; +PROM6.254 MT
[2019-06-17 00:07] LABS: CHLORIDE 109 mEq/L (98-107); EOSINOPHILS % 1.5 % (0.0-5.0); HEMATOCRIT. 32.9 % (42.0-52.0); HEMOGLOBIN. 10.7 g/dL (14.0-18.0); LYMPHOCYTES % 15.4 % (20.0-50.0); MEAN CORPUSCULAR HEMOGLOBIN 28.2 pg (28.0-32.0); MEAN CORPUSCULAR VOLUME 86.5 fL (80.0-94.0); MEAN PLATELET VOLUME 8.9 fl (7.4-10.4); MONOCYTES % 11.9 % (2.0-8.0); NEUTROPHILS % 70.2 % (40.0-76.0); PLATELET 144 x1000/uL (130-400); RED CELL DISTRIBUTION WIDTH 18.6 % (11.6-14.6)
[2019-06-17] MEDS ORDERED: SODIUM CHLORIDE 0.9% 1,000 ML IV ONE (02:30)
[2019-06-17] MEDS ORDERED: ASPIRIN 325MG TABLET PO SCH (02:30)
[2019-06-17] MEDS ORDERED: CLONIDINE 0.2MG TABLET PO SCH (07:45)
[2019-06-17 09:41] VITALS: BP 163/103
[2019-06-17 10:00] VITALS: BP 163/103
[2019-06-17] MEDS ORDERED: ONDANSETRON HCL 4MG/2ML INJ IV PRN (10:15)
[2019-06-17] MEDS ORDERED: ACETAMINOPHEN 325MG TABLET PO PRN (10:15)
[2019-06-17 12:00] VITALS: BP 161/105
[2019-06-17] MEDS ORDERED: AMLODIPINE 5MG TABLET PO SCH (14:00)
[2019-06-17] MEDS ORDERED: NITROGLYCERIN OINT 1GM/INCH UDPKT TD SCH (14:00)
[2019-06-17] MEDS: HYDRALAZINE HCL 100MG TABLET PO SCH ×2 (14:28→20:51)
[2019-06-17] MEDS: NITROGLYCERIN OINT 1GM/INCH UDPKT TD SCH ×2 (14:29→20:52)
[2019-06-17 16:00] VITALS: BP 156/96
[2019-06-17 19:11] LABS: CLARITY URINE CLEAR (CLEAR); COLOR URINE YELLOW (YELLOW); KETONES URINE TRACE (NEGATIVE); LEUKOCYTE ESTERASE URINE NEGATIVE (NEGATIVE); NITRITE URINE NEGATIVE (NEGATIVE); OCCULT BLOOD URINE NEGATIVE (NEGATIVE); PROTEIN URINE 2+ (NEGATIVE); SPECIFIC GRAVITY URINE 1.024 (1.005-1.030)
[2019-06-17 20:00] VITALS: BP 135/98
[2019-06-17] MEDS: AMLODIPINE 5MG TABLET PO SCH (20:51)
[2019-06-17] MEDS: CARVEDILOL 12.5MG TABLET PO SCH (20:51)
[2019-06-17] MEDS: ENOXAPARIN 30MG/0.3ML SYR SUBCUT SCH (20:52)
[2019-06-18 00:04] VITALS: BP_SYST 142; BP_SYST 154; BP_DIAS 102; BP_DIAS 103
[2019-06-18] MEDS: CLONIDINE 0.1MG TABLET PO PRN (01:11)
[2019-06-18 04:00] VITALS: BP 156/97
[2019-06-18] MEDS: HYDRALAZINE HCL 100MG TABLET PO SCH ×3 (05:30→21:05)
[2019-06-18 06:21] LABS: BASOPHILS % 1.1 % (0.0-2.0); EOSINOPHILS % 6.9 % (0.0-5.0); HEMATOCRIT. 32.1 % (42.0-52.0); HEMOGLOBIN. 10.4 g/dL (14.0-18.0); LYMPHOCYTES % 20.2 % (20.0-50.0); MEAN CORPUSCULAR HEMOGLOBIN 28.1 pg (28.0-32.0); MEAN CORPUSCULAR VOLUME 86.7 fL (80.0-94.0); MEAN PLATELET VOLUME 9.1 fl (7.4-10.4); MONOCYTES % 12.6 % (2.0-8.0); NEUTROPHILS % 59.2 % (40.0-76.0); PLATELET 139 x1000/uL (130-400); RED CELL DISTRIBUTION WIDTH 18.3 % (11.6-14.6)
[2019-06-18 08:00] VITALS: BP_SYST 141; BP_SYST 150; BP_DIAS 73; BP_DIAS 77
[2019-06-18] MEDS: AMLODIPINE 5MG TABLET PO SCH ×3 (09:00→20:38)
[2019-06-18] MEDS: NITROGLYCERIN OINT 1GM/INCH UDPKT TD SCH ×2 (09:15→21:06)
[2019-06-18] MEDS: ENOXAPARIN 30MG/0.3ML SYR SUBCUT SCH ×2 (09:15→21:06)
[2019-06-18] MEDS: ASPIRIN 81MG TABLET PO SCH (09:16)
[2019-06-18] MEDS: CARVEDILOL 12.5MG TABLET PO SCH ×2 (09:16→21:05)
[2019-06-18] MEDS: PREDNISONE 20MG TABLET PO SCH (10:12)
[2019-06-18] MEDS: TAMSULOSIN HCL 0.4MG SR CAPSULE PO SCH (10:12)
[2019-06-18] MEDS: FUROSEMIDE 20MG/2ML VIAL IVP SCH (10:12)
[2019-06-18 10:48] LABS: BG CARBOXYHEMOGLOBIN 0.3 % (0.5-1.5); BG DEOXYHEMOGLOBIN 5.6 % (0.0-5.0); BG FRACTION INSPIRED OXYGEN 21; BG HCO3 ACT 23.5 mmol/L (22.0-26.0); BG METHEMOGLOBIN 0.2 % (0.0-1.5); BG OXYGEN SATURATION 94.4 % (92.0-98.5); BG OXYHEMOGLOBIN 93.9 % (94.0-97.0); BG PCO2 38.3 mmHg (35.0-45.0); BG PH 7.405 (7.350-7.450); BG PO2 76.1 mmHg (75.0-100.0); BG SAMPLE SITE RIGHT RADIAL; BG TOTAL HEMOGLOBIN 11.4 g/dL (12.0-18.0); BG VENT MODE ROOM AIR
[2019-06-18 12:00] VITALS: BP 127/79
[2019-06-18] MEDS: IPRATROPIUM/ALBUTEROL 0.5-3(2.5)MG/3ML NEB HHN SCH ×3 (12:45→21:43)
[2019-06-18 16:00] VITALS: BP 123/75
[2019-06-18 20:00] VITALS: BP 142/75
[2019-06-19] VITALS: BP 140/74
[2019-06-19 04:00] VITALS: BP 130/67
[2019-06-19] MEDS: HYDRALAZINE HCL 100MG TABLET PO SCH ×3 (06:12→21:38)
[2019-06-19 07:23] LABS: BASOPHILS % 0.3 % (0.0-2.0); HEMATOCRIT. 31.5 % (42.0-52.0); HEMOGLOBIN. 10.2 g/dL (14.0-18.0); LYMPHOCYTES % 7.5 % (20.0-50.0); MEAN CORPUSCULAR HEMOGLOBIN 28.3 pg (28.0-32.0); MEAN CORPUSCULAR VOLUME 87.4 fL (80.0-94.0); MEAN PLATELET VOLUME 8.9 fl (7.4-10.4); MONOCYTES % 6.1 % (2.0-8.0); NEUTROPHILS % 86.1 % (40.0-76.0); PLATELET 158 x1000/uL (130-400); RED BLOOD CELL COUNT 3.61 mill/uL (4.7-6.1); RED CELL DISTRIBUTION WIDTH 18.1 % (11.6-14.6)
[2019-06-19] MEDS: AMLODIPINE 5MG TABLET PO SCH ×2 (09:00→21:00)
[2019-06-19] MEDS: NITROGLYCERIN OINT 1GM/INCH UDPKT TD SCH ×3 (09:00→21:37)
[2019-06-19] MEDS: PREDNISONE 20MG TABLET PO SCH (09:17)
[2019-06-19] MEDS: ASPIRIN 81MG TABLET PO SCH (09:17)
[2019-06-19] MEDS: ENOXAPARIN 30MG/0.3ML SYR SUBCUT SCH ×2 (09:18→21:37)
[2019-06-19] MEDS: CARVEDILOL 12.5MG TABLET PO SCH ×2 (09:18→21:00)
[2019-06-19] MEDS: TAMSULOSIN HCL 0.4MG SR CAPSULE PO SCH (09:18)
[2019-06-19] MEDS: FUROSEMIDE 20MG/2ML VIAL IVP SCH (09:19)
[2019-06-19] MEDS: IPRATROPIUM/ALBUTEROL 0.5-3(2.5)MG/3ML NEB HHN SCH ×4 (09:59→20:40)
[2019-06-19 12:00] VITALS: BP 118/72
[2019-06-19] MEDS ORDERED: FURO-151 MT (13:09)
[2019-06-19] MEDS ORDERED: CARV12.545 MT (13:09)
[2019-06-19] MEDS ORDERED: ALBU18HF2 IH (13:09)
[2019-06-19] MEDS ORDERED: FLUT1DIS3 INH (13:09)
[2019-06-19] MEDS ORDERED: TAMS-11 MT (13:09)
[2019-06-19] MEDS ORDERED: GABA-531 PO (13:09)
[2019-06-19] MEDS ORDERED: LOSA50TA41 MT (13:09)
[2019-06-19] MEDS ORDERED: ASPI-1158 MT (13:09)
[2019-06-19 16:00] VITALS: BP 119/73
[2019-06-19 20:00] VITALS: BP 109/67
[2019-06-20] VITALS (8 sets, daily range): BP systolic 109–147; BP diastolic 63–81
[2019-06-20] MEDS: HYDRALAZINE HCL 100MG TABLET PO SCH ×3 (06:03→21:22)
[2019-06-20 06:50] LABS: BASOPHILS % 1.1 % (0.0-2.0); EOSINOPHILS % 3.6 % (0.0-5.0); HEMATOCRIT. 31.6 % (42.0-52.0); HEMOGLOBIN. 10.3 g/dL (14.0-18.0); LYMPHOCYTES % 13.5 % (20.0-50.0); MEAN CORPUSCULAR HEMOGLOBIN 28.3 pg (28.0-32.0); MEAN CORPUSCULAR VOLUME 86.4 fL (80.0-94.0); MEAN PLATELET VOLUME 8.7 fl (7.4-10.4); MONOCYTES % 9.6 % (2.0-8.0); NEUTROPHILS % 72.2 % (40.0-76.0); PLATELET 184 x1000/uL (130-400); RED BLOOD CELL COUNT 3.66 mill/uL (4.7-6.1); RED CELL DISTRIBUTION WIDTH 18.1 % (11.6-14.6)
[2019-06-20 07:06] LABS: PHOSPHORUS 3.3 mg/dL (2.5-4.9)
[2019-06-20] MEDS: PREDNISONE 20MG TABLET PO SCH (07:59)
[2019-06-20] MEDS: AMLODIPINE 5MG TABLET PO SCH ×4 (08:46→21:23)
[2019-06-20] MEDS: ENOXAPARIN 30MG/0.3ML SYR SUBCUT SCH ×2 (08:46→21:23)
[2019-06-20] MEDS: NITROGLYCERIN OINT 1GM/INCH UDPKT TD SCH ×2 (08:46→21:23)
[2019-06-20] MEDS: TAMSULOSIN HCL 0.4MG SR CAPSULE PO SCH (08:47)
[2019-06-20] MEDS: CARVEDILOL 12.5MG TABLET PO SCH ×2 (08:47→21:23)
[2019-06-20] MEDS: ASPIRIN 81MG TABLET PO SCH (08:47)
[2019-06-20] MEDS: FUROSEMIDE 20MG/2ML VIAL IVP SCH (08:48)
[2019-06-20] MEDS: IPRATROPIUM/ALBUTEROL 0.5-3(2.5)MG/3ML NEB HHN SCH ×4 (09:58→21:23)
[2019-06-20] MEDS: DOCUSATE SODIUM 250MG CAPSULE PO SCH ×2 (11:02→16:26)
[2019-06-20] MEDS ORDERED: METHYLPREDNISOLONE SOD SUCC 40 MG/ML VIAL IV SCH (13:00)
[2019-06-21] VITALS (7 sets, daily range): BP systolic 145–175; BP diastolic 49–107
[2019-06-21] MEDS ORDERED: NA PHOS,M-B/NA PHOS,DI-BA ENEMA 118ML PR PRN (05:00)
[2019-06-21] MEDS: HYDRALAZINE HCL 100MG TABLET PO SCH ×2 (05:42→14:00)
[2019-06-21 06:42] LABS: HEMOGLOBIN. 10.6 g/dL (14.0-18.0); MEAN CORPUSCULAR HEMOGLOBIN 27.9 pg (28.0-32.0); MEAN CORPUSCULAR VOLUME 86.9 fL (80.0-94.0); MEAN PLATELET VOLUME 8.6 fl (7.4-10.4); PLATELET 187 x1000/uL (130-400); RED CELL DISTRIBUTION WIDTH 18.3 % (11.6-14.6)
[2019-06-21 06:59] LABS: CHLORIDE 104 mEq/L (98-107)
[2019-06-21 07:09] LABS: PHOSPHORUS 3.7 mg/dL (2.5-4.9)
[2019-06-21] MEDS: IPRATROPIUM/ALBUTEROL 0.5-3(2.5)MG/3ML NEB HHN SCH ×3 (08:29→16:48)
[2019-06-21] MEDS ORDERED: BUDESONIDE 0.5MG/2ML NEB HHN SCH (09:30)
[2019-06-21] MEDS: DOCUSATE SODIUM 250MG CAPSULE PO SCH ×2 (10:49→15:53)
[2019-06-21] MEDS: FUROSEMIDE 20MG/2ML VIAL IVP SCH (10:49)
[2019-06-21] MEDS: PREDNISONE 20MG TABLET PO SCH (10:49)
[2019-06-21] MEDS: TAMSULOSIN HCL 0.4MG SR CAPSULE PO SCH (10:50)
[2019-06-21] MEDS: CARVEDILOL 12.5MG TABLET PO SCH (10:50)
[2019-06-21] MEDS: ASPIRIN 81MG TABLET PO SCH (10:50)
[2019-06-21] MEDS: NITROGLYCERIN OINT 1GM/INCH UDPKT TD SCH (10:55)
[2019-06-21] MEDS: AMLODIPINE 5MG TABLET PO SCH (10:55)
[2019-06-21] MEDS: ENOXAPARIN 30MG/0.3ML SYR SUBCUT SCH (10:56)
[2019-06-21 11:37] LABS: PLATELET ESTIMATE NORMAL
[2019-06-21] MEDS: CLONIDINE 0.1MG TABLET PO PRN (15:52)
[2019-06-22] MEDS ORDERED: FUROSEMIDE 20MG/2ML VIAL IVP SCH (09:00)
== END 2019-06-21 21:00 | disposition home or self-care (01) | DRG 194 ==
LOC: ER 06-17 01:03 → 8WST 06-17 01:30 → ENRESERV 06-17 07:36
PROVIDERS: ADMIT Internal Medicine; ATTEND Internal Medicine
DX: I13.0 Hypertensive heart and chronic kidney disease with heart failure and stage 1 through stage 4 chronic kidney disease, or unspecified chronic kidney disease (principal); N17.0 Acute kidney failure with tubular necrosis; J96.21 Acute and chronic respiratory failure with hypoxia; D72.1 Eosinophilia; E87.8 Other disorders of electrolyte and fluid balance, not elsewhere classified; I27.20 Pulmonary hypertension, unspecified; N18.3 Chronic kidney disease, stage 3 (moderate); G90.8 Other disorders of autonomic nervous system; E87.5 Hyperkalemia; I50.23 Acute on chronic systolic (congestive) heart failure; Z99.81 Dependence on supplemental oxygen; Z95.5 Presence of coronary angioplasty implant and graft; I25.10 Atherosclerotic heart disease of native coronary artery without angina pectoris; I48.0 Paroxysmal atrial fibrillation; K21.9 Gastro-esophageal reflux disease without esophagitis; D64.9 Anemia, unspecified; I25.2 Old myocardial infarction; N28.89 Other specified disorders of kidney and ureter; N40.0 Benign prostatic hyperplasia without lower urinary tract symptoms; E66.09 Other obesity due to excess calories; I25.5 Ischemic cardiomyopathy; Z82.3 Family history of stroke; I47.1 Supraventricular tachycardia; Z79.899 Other long term (current) drug therapy; Z82.49 Family history of ischemic heart disease and other diseases of the circulatory system; Z87.891 Personal history of nicotine dependence; Z95.1 Presence of aortocoronary bypass graft; N18.9 Chronic kidney disease, unspecified; G47.33 Obstructive sleep apnea (adult) (pediatric); Z71.3 Dietary counseling and surveillance; Z68.35 Body mass index [BMI] 35.0-35.9, adult; J44.9 Chronic obstructive pulmonary disease, unspecified
CPT/HCPCS: 36415; 36600; 71045; 76770; 80048; 81003; 82375; 82550; 82805; 83605; 83735; 84100; 84484; 93005; 94618; 94640; 96360; 96361; 99285; J1650; J1940; J2405; J2920; J7512; J7620; J7626

== ENCOUNTER 2021-05-19 15:00 | Inpatient (IN) | payer MEDICARE, MEDICAID ==
[~2021-05-19] VITALS: Ht 180.3 cm; Wt 122.5 kg
[2021-05-19] VITALS (9 sets, daily range): BP systolic 106–126; BP diastolic 62–84
[~2021-05-19 15:00] MED LIST changes: +ALBU18HF2 IH; +ASPI-1406 MT; -CLON0.2T PO; +CLOP-31 PO; -CLOP75TA4 PO; -DILT60TA35 PO; +FLUT1DIS3 INH; -GABA-531 PO; +GABA-532 PO; -LOSA100T32 PO; +LOSA50TA41 MT; -SENN-170 MT; +SENN-257 MT; +TAMS-11 MT; +TUSSL MT
[2021-05-19] MEDS: INFLUENZA VACCINE 05/PF 0.5 ML SYRINGE IM ONE ×2 (16:15→17:39)
[2021-05-19] MEDS ORDERED: CARVEDILOL 6.25 MG TABLET PO SCH (17:00)
[2021-05-19] MEDS: ASPIRIN 81MG EC TABLET PO SCH (17:33)
[2021-05-19] MEDS: NEBIVOLOL HCL 5 MG TABLET PO SCH (17:36)
[2021-05-19] MEDS: NITROGLYCERIN OINT 1GM/INCH UDPKT TD SCH (17:37)
[2021-05-19 19:27] LABS: BASOPHILS % 0.3 % (0.0-2.0); EOSINOPHILS % 1.5 % (0.0-5.0); HEMOGLOBIN. 10.6 g/dL (14.0-18.0); LYMPHOCYTES % 10.3 % (20.0-50.0); MEAN CORPUSCULAR HEMOGLOBIN 27.9 pg (28.0-32.0); MEAN CORPUSCULAR VOLUME 89.2 fL (80.0-94.0); MEAN PLATELET VOLUME 8.3 fl (7.4-10.4); MONOCYTES % 9.1 % (2.0-8.0); NEUTROPHILS % 78.8 % (40.0-76.0); PLATELET 136 x1000/uL (130-400); RED BLOOD CELL COUNT 3.81 mill/uL (4.7-6.1); RED CELL DISTRIBUTION WIDTH 17.2 % (11.6-14.6)
[2021-05-19 19:35] LABS: CHLORIDE 103 mEq/L (98-107)
[2021-05-19 19:46] LABS: CREATINE KINASE 68 IU/L (39-308)
[2021-05-19 19:49] LABS: CREATINE KINASE MB FRACTION 1.9 ng/mL (0.5-3.6)
[2021-05-19] MEDS: ATORVASTATIN CALCIUM 40MG TABLET PO SCH (21:11)
[2021-05-20] VITALS (14 sets, daily range): BP systolic 102–151; BP diastolic 54–92
[2021-05-20] MEDS: NITROGLYCERIN OINT 1GM/INCH UDPKT TD SCH ×4 (00:11→17:24)
[2021-05-20 08:49] LABS: BASOPHILS % 0.9 % (0.0-2.0); EOSINOPHILS % 2.1 % (0.0-5.0); HEMATOCRIT. 33.6 % (42.0-52.0); HEMOGLOBIN. 10.5 g/dL (14.0-18.0); LYMPHOCYTES % 11.6 % (20.0-50.0); MEAN CORPUSCULAR HEMOGLOBIN 27.9 pg (28.0-32.0); MEAN CORPUSCULAR VOLUME 89.2 fL (80.0-94.0); MEAN PLATELET VOLUME 8.7 fl (7.4-10.4); MONOCYTES % 10.5 % (2.0-8.0); NEUTROPHILS % 74.9 % (40.0-76.0); PLATELET 133 x1000/uL (130-400); RED BLOOD CELL COUNT 3.77 mill/uL (4.7-6.1); RED CELL DISTRIBUTION WIDTH 17.3 % (11.6-14.6)
[2021-05-20] MEDS: NEBIVOLOL HCL 5 MG TABLET PO SCH ×2 (09:58→16:28)
[2021-05-20] MEDS: ASPIRIN 81MG EC TABLET PO SCH (09:58)
[2021-05-20] MEDS: ENOXAPARIN 120MG/0.8ML SYR SUBCUT SCH (09:59)
[2021-05-20 14:27] LABS: COLOR URINE YELLOW (YELLOW); KETONES URINE NEGATIVE (NEGATIVE); LEUKOCYTE ESTERASE URINE TRACE (NEGATIVE); NITRITE URINE NEGATIVE (NEGATIVE); OCCULT BLOOD URINE NEGATIVE (NEGATIVE); PH URINE 5.5 (4.5-8.0); PROTEIN URINE 1+ (NEGATIVE); SPECIFIC GRAVITY URINE 1.017 (1.005-1.030); UROBILINOGEN URINE 0.2 E.U./dL (0.2-1.0)
[2021-05-20 14:30] LABS: CLARITY URINE SL HAZY (CLEAR)
[2021-05-20 14:50] LABS: *BARBITURATES SCREEN URINE NEGATIVE (NEGATIVE)
[2021-05-20 14:51] LABS: *BENZODIAZEPINES SCREEN URINE NEGATIVE (NEGATIVE); *COCAINE SCREEN URINE NEGATIVE (NEGATIVE); CANNABINOID URINE SCREEN NEGATIVE (NEGATIVE); OPIATES URINE SCREEN PRESUMTIVE POSITIVE (NEGATIVE); PHENCYCLIDINE URINE SCREEN NEGATIVE (NEGATIVE)
[2021-05-20 14:56] LABS: *AMPHETAMINES SCREEN URINE NEGATIVE (NEGATIVE); METHADONE URINE SCREEN NEGATIVE (NEGATIVE)
[2021-05-20] MEDS: AMIODARONE HCL 200 MG TABLET PO SCH (16:27)
[2021-05-20] MEDS ORDERED: TAMSULOSIN HCL 0.4MG SR CAPSULE PO NR (17:30)
[2021-05-20] MEDS: OXYBUTYNIN CHLORIDE 5MG TABLET PO SCH (21:11)
[2021-05-20] MEDS: TERAZOSIN HCL 5MG CAPSULE PO SCH (21:11)
[2021-05-20] MEDS: ATORVASTATIN CALCIUM 40MG TABLET PO SCH (21:11)
[2021-05-21] VITALS (12 sets, daily range): BP systolic 93–130; BP diastolic 60–80
[2021-05-21] MEDS: NITROGLYCERIN OINT 1GM/INCH UDPKT TD SCH ×4 (00:25→22:00)
[2021-05-21] MEDS: NEBIVOLOL HCL 5 MG TABLET PO SCH ×3 (01:04→16:09)
[2021-05-21 07:26] LABS: BASOPHILS % 0.8 % (0.0-2.0); EOSINOPHILS % 2.8 % (0.0-5.0); HEMATOCRIT. 32.9 % (42.0-52.0); HEMOGLOBIN. 10.4 g/dL (14.0-18.0); LYMPHOCYTES % 12.7 % (20.0-50.0); MEAN CORPUSCULAR HEMOGLOBIN 28.1 pg (28.0-32.0); MEAN CORPUSCULAR VOLUME 88.6 fL (80.0-94.0); MEAN PLATELET VOLUME 8.6 fl (7.4-10.4); MONOCYTES % 9.7 % (2.0-8.0); PLATELET 150 x1000/uL (130-400); RED BLOOD CELL COUNT 3.71 mill/uL (4.7-6.1); RED CELL DISTRIBUTION WIDTH 17.4 % (11.6-14.6)
[2021-05-21 07:36] LABS: INR 1.3; PROTHROMBIN TIME 13.5 sec (9.6-11.0)
[2021-05-21] MEDS: TAMSULOSIN HCL 0.4MG SR CAPSULE PO SCH (08:10)
[2021-05-21] MEDS: AMIODARONE HCL 200 MG TABLET PO SCH ×2 (08:10→16:30)
[2021-05-21] MEDS: ASPIRIN 81MG EC TABLET PO SCH (08:10)
[2021-05-21] MEDS: OXYBUTYNIN CHLORIDE 5MG TABLET PO SCH ×2 (08:10→21:13)
[2021-05-21] MEDS: ENOXAPARIN 120MG/0.8ML SYR SUBCUT SCH (11:28)
[2021-05-21 13:11] LABS: PHOSPHORUS 3.6 mg/dL (2.5-4.9)
[2021-05-21] MEDS: BENZONATATE 100MG CAPSULE PO PRN (16:04)
[2021-05-21 17:37] LABS: HEPATITIS B SURFACE ANTIGEN NEGATIVE
[2021-05-21] MEDS: HYDROCODONE/ACETAMINOPHEN 5/325MG TABLET PO PRN (19:15)
[2021-05-21] MEDS: ATORVASTATIN CALCIUM 40MG TABLET PO SCH (21:14)
[2021-05-21] MEDS: GUAIFENESIN 600MG ER TABLET PO SCH (21:14)
[2021-05-21] MEDS: TERAZOSIN HCL 5MG CAPSULE PO SCH (21:18)
[2021-05-22] VITALS (12 sets, daily range): BP systolic 99–142; BP diastolic 46–79
[2021-05-22] MEDS: NEBIVOLOL HCL 5 MG TABLET PO SCH ×3 (01:05→18:41)
[2021-05-22] MEDS: NITROGLYCERIN OINT 1GM/INCH UDPKT TD SCH ×3 (05:57→22:24)
[2021-05-22] MEDS: AMIODARONE HCL 200 MG TABLET PO SCH ×2 (09:32→18:42)
[2021-05-22] MEDS: ASPIRIN 81MG EC TABLET PO SCH (09:32)
[2021-05-22] MEDS: TAMSULOSIN HCL 0.4MG SR CAPSULE PO SCH (09:33)
[2021-05-22] MEDS: OXYBUTYNIN CHLORIDE 5MG TABLET PO SCH ×2 (09:33→21:04)
[2021-05-22] MEDS: GUAIFENESIN 600MG ER TABLET PO SCH ×2 (09:33→21:04)
[2021-05-22 10:09] LABS: BASOPHILS % 0.9 % (0.0-2.0); EOSINOPHILS % 2.4 % (0.0-5.0); HEMATOCRIT. 36.2 % (42.0-52.0); HEMOGLOBIN. 11.2 g/dL (14.0-18.0); LYMPHOCYTES % 13.9 % (20.0-50.0); MEAN CORPUSCULAR HEMOGLOBIN 27.7 pg (28.0-32.0); MEAN PLATELET VOLUME 8.6 fl (7.4-10.4); MONOCYTES % 10.9 % (2.0-8.0); NEUTROPHILS % 71.9 % (40.0-76.0); PLATELET 155 x1000/uL (130-400); RED BLOOD CELL COUNT 4.02 mill/uL (4.7-6.1); RED CELL DISTRIBUTION WIDTH 17.7 % (11.6-14.6)
[2021-05-22] MEDS: HYDROCODONE/ACETAMINOPHEN 5/325MG TABLET PO PRN (11:35)
[2021-05-22] MEDS: ENOXAPARIN 120MG/0.8ML SYR SUBCUT SCH (12:17)
[2021-05-22] MEDS ORDERED: NALOXONE HCL 0.4MG/ML VIAL IV PRN (15:30)
[2021-05-22] MEDS: TERAZOSIN HCL 5MG CAPSULE PO SCH (21:04)
[2021-05-22] MEDS: ATORVASTATIN CALCIUM 40MG TABLET PO SCH (21:04)
[2021-05-23] VITALS (11 sets, daily range): BP systolic 110–147; BP diastolic 67–94
[2021-05-23] MEDS: HYDROCODONE/ACETAMINOPHEN 5/325MG TABLET PO PRN (00:59)
[2021-05-23] MEDS: NEBIVOLOL HCL 5 MG TABLET PO SCH ×3 (01:00→18:33)
[2021-05-23] MEDS: NITROGLYCERIN OINT 1GM/INCH UDPKT TD SCH ×2 (06:26→14:48)
[2021-05-23 06:49] LABS: PHOSPHORUS 3.7 mg/dL (2.5-4.9)
[2021-05-23 06:54] LABS: EOSINOPHILS % 3.5 % (0.0-5.0); HEMATOCRIT. 33.3 % (42.0-52.0); HEMOGLOBIN. 10.6 g/dL (14.0-18.0); LYMPHOCYTES % 12.4 % (20.0-50.0); MEAN CORPUSCULAR HEMOGLOBIN 28.6 pg (28.0-32.0); MEAN CORPUSCULAR VOLUME 89.7 fL (80.0-94.0); MEAN PLATELET VOLUME 8.4 fl (7.4-10.4); MONOCYTES % 9.9 % (2.0-8.0); NEUTROPHILS % 73.2 % (40.0-76.0); PLATELET 175 x1000/uL (130-400); RED BLOOD CELL COUNT 3.71 mill/uL (4.7-6.1); RED CELL DISTRIBUTION WIDTH 17.7 % (11.6-14.6)
[2021-05-23] MEDS: AMIODARONE HCL 200 MG TABLET PO SCH ×2 (07:20→18:33)
[2021-05-23] MEDS: OXYBUTYNIN CHLORIDE 5MG TABLET PO SCH ×2 (09:00→21:00)
[2021-05-23] MEDS: GUAIFENESIN 600MG ER TABLET PO SCH ×2 (09:00→21:00)
[2021-05-23] MEDS ORDERED: NICARDIPINE 100MCG/ML 10ML VIAL (CATH LAB) IV ONE (09:21)
[2021-05-23] MEDS ORDERED: NITROGLYCERIN 50MCG/ML 10ML VIAL (CATH LAB) IV ONE (09:21)
[2021-05-23] MEDS ORDERED: FENTANYL CITRATE/PF 50MCG/ML 2ML VIAL ONE (11:01)
[2021-05-23] MEDS ORDERED: MIDAZOLAM HCL 2 MG/2 ML VIAL ONE (11:01)
[2021-05-23] MEDS ORDERED: LIDOCAINE HCL 1% 20ML VIAL (Pyxis) INJ ONE (11:02)
[2021-05-23] MEDS ORDERED: HEPARIN 1000 UNITS/ML 10ML ONE (11:02)
[2021-05-23] MEDS ORDERED: IODIXANOL 320MG/ML 100 ML BOTTLE IV ONE ×2 (11:02→12:03)
[2021-05-23] MEDS ORDERED: ATROPINE SULFATE 1MG/10ML SYR IV PRN ×2 (12:15)
[2021-05-23] MEDS ORDERED: ACETAMINOPHEN 325MG TABLET PO PRN (12:15)
[2021-05-23] MEDS ORDERED: ONDANSETRON HCL 4MG/2ML INJ IV PRN (12:15)
[2021-05-23] MEDS: ASPIRIN 81MG EC TABLET PO SCH (14:47)
[2021-05-23] MEDS: TAMSULOSIN HCL 0.4MG SR CAPSULE PO SCH (14:48)
[2021-05-23 17:22] LABS: HEPATITIS B SURFACE AB 3.1 mIU/mL
[2021-05-23 17:33] LABS: HEPATITIS B SURFACE ANTIGEN NEGATIVE
[2021-05-23] MEDS: ATORVASTATIN CALCIUM 40MG TABLET PO SCH (21:00)
[2021-05-23] MEDS: TERAZOSIN HCL 5MG CAPSULE PO SCH (21:00)
[2021-05-24] VITALS (36 sets, daily range): BP systolic 72–144; BP diastolic 43–118
[2021-05-24] MEDS: NEBIVOLOL HCL 5 MG TABLET PO SCH ×2 (01:00→08:16)
[2021-05-24] MEDS: NITROGLYCERIN OINT 1GM/INCH UDPKT TD SCH ×4 (01:07→22:47)
[2021-05-24] MEDS: AMIODARONE HCL 200 MG TABLET PO SCH ×2 (07:20→17:13)
[2021-05-24 07:24] LABS: BASOPHILS % 0.8 % (0.0-2.0); EOSINOPHILS % 2.3 % (0.0-5.0); HEMATOCRIT. 34.7 % (42.0-52.0); HEMOGLOBIN. 10.9 g/dL (14.0-18.0); LYMPHOCYTES % 9.8 % (20.0-50.0); MEAN CORPUSCULAR HEMOGLOBIN 28.4 pg (28.0-32.0); MEAN CORPUSCULAR VOLUME 89.9 fL (80.0-94.0); MEAN PLATELET VOLUME 8.6 fl (7.4-10.4); NEUTROPHILS % 78.1 % (40.0-76.0); PLATELET 182 x1000/uL (130-400); RED BLOOD CELL COUNT 3.86 mill/uL (4.7-6.1); RED CELL DISTRIBUTION WIDTH 17.6 % (11.6-14.6)
[2021-05-24] MEDS ORDERED: LIDOCAINE HCL 1% 20ML VIAL (Pyxis) INJ ONE (07:41)
[2021-05-24] MEDS ORDERED: CEFAZOLIN 1000MG PREMIX 100 ML IV ONE (07:41)
[2021-05-24] MEDS ORDERED: GENTAMICIN SULF 40MG/ML 2ML VIAL ONE (07:41)
[2021-05-24] MEDS ORDERED: GENTAMICIN/NS IRRIGATION 500 ML IR ONE (07:42)
[2021-05-24] MEDS ORDERED: IODIXANOL 320MG/ML 100 ML BOTTLE IV ONE (07:42)
[2021-05-24] MEDS ORDERED: EPINEPHRINE 5 MG in SODIUM CHLORIDE 0.9% 245 ML IV PRN (08:00)
[2021-05-24] MEDS: TAMSULOSIN HCL 0.4MG SR CAPSULE PO SCH (08:16)
[2021-05-24] MEDS: OXYBUTYNIN CHLORIDE 5MG TABLET PO SCH ×2 (08:16→21:13)
[2021-05-24] MEDS: GUAIFENESIN 600MG ER TABLET PO SCH ×2 (08:17→21:13)
[2021-05-24] MEDS ORDERED: AMIODARONE HCL 50MG/ML 3ML VIAL IV ONE ×2 (08:41→10:30)
[2021-05-24] MEDS: ASPIRIN 81MG EC TABLET PO SCH (09:00)
[2021-05-24] MEDS ORDERED: METOPROLOL TARTRATE 5MG/5ML VIAL IV ONE (10:30)
[2021-05-24] MEDS ORDERED: FENTANYL CITRATE/PF 50MCG/ML 5ML VIAL ONE (12:26)
[2021-05-24] MEDS ORDERED: MIDAZOLAM HCL 5 MG/5 ML VIAL ONE (12:27)
[2021-05-24] MEDS: ESMOLOL 2500MG PREMIX 250 ML IV SCH ×2 (13:20→19:56)
[2021-05-24] MEDS: HYDROCODONE/ACETAMINOPHEN 5/325MG TABLET PO PRN (15:14)
[2021-05-24] MEDS: GABAPENTIN 100MG CAPSULE PO SCH (17:13)
[2021-05-24] MEDS ORDERED: CARVEDILOL 3.125 MG TABLET PO SCH (21:00)
[2021-05-24] MEDS: ATORVASTATIN CALCIUM 40MG TABLET PO SCH (21:13)
[2021-05-24] MEDS: CARVEDILOL 6.25 MG TABLET PO SCH (21:13)
[2021-05-24] MEDS: TERAZOSIN HCL 5MG CAPSULE PO SCH (22:47)
[2021-05-25] VITALS (92 sets, daily range): BP systolic 61–282; BP diastolic 28–274
[2021-05-25] MEDS: ESMOLOL 2500MG PREMIX 250 ML IV SCH ×3 (03:09→20:58)
[2021-05-25] MEDS: NITROGLYCERIN OINT 1GM/INCH UDPKT TD SCH ×3 (05:55→22:46)
[2021-05-25] MEDS: HYDROCODONE/ACETAMINOPHEN 5/325MG TABLET PO PRN ×2 (05:55→23:46)
[2021-05-25 07:19] LABS: HEMATOCRIT. 32.1 % (42.0-52.0); MEAN CORPUSCULAR HEMOGLOBIN 27.7 pg (28.0-32.0); MEAN CORPUSCULAR VOLUME 89.3 fL (80.0-94.0); MEAN PLATELET VOLUME 8.8 fl (7.4-10.4); PLATELET 184 x1000/uL (130-400)
[2021-05-25] MEDS: AMIODARONE HCL 200 MG TABLET PO SCH ×2 (08:20→17:47)
[2021-05-25 08:25] LABS: PLATELET ESTIMATE NORMAL
[2021-05-25] MEDS: GABAPENTIN 100MG CAPSULE PO SCH ×3 (09:00→17:47)
[2021-05-25] MEDS: CARVEDILOL 6.25 MG TABLET PO SCH ×2 (09:00→20:30)
[2021-05-25] MEDS: ASPIRIN 81MG EC TABLET PO SCH (09:00)
[2021-05-25] MEDS: TAMSULOSIN HCL 0.4MG SR CAPSULE PO SCH (09:00)
[2021-05-25] MEDS: GUAIFENESIN 600MG ER TABLET PO SCH ×2 (09:00→20:30)
[2021-05-25] MEDS: OXYBUTYNIN CHLORIDE 5MG TABLET PO SCH ×2 (09:00→20:30)
[2021-05-25] MEDS ORDERED: LIDOCAINE HCL 2% JELLY 5ML ONE (09:58)
[2021-05-25] MEDS ORDERED: TETRACAINE/BENZOCAINE/BUTAMBEN 20 GM SPRAY MM ONE (09:59)
[2021-05-25] MEDS ORDERED: FENTANYL CITRATE/PF 50MCG/ML 2ML VIAL IV SCH (10:00)
[2021-05-25] MEDS ORDERED: PROPOFOL 10MG/ML 100ML 100 ML IV PRN (10:00)
[2021-05-25] MEDS ORDERED: MIDAZOLAM HCL 2 MG/2 ML VIAL ONE (12:17)
[2021-05-25] MEDS ORDERED: GENTAMICIN SULF 40MG/ML 2ML VIAL ONE (12:18)
[2021-05-25] MEDS ORDERED: FENTANYL CITRATE/PF 50MCG/ML 2ML VIAL ONE (12:18)
[2021-05-25] MEDS ORDERED: LIDOCAINE HCL 1% 20ML VIAL (Pyxis) INJ ONE (12:19)
[2021-05-25] MEDS ORDERED: GENTAMICIN/NS IRRIGATION 500 ML IR ONE (12:19)
[2021-05-25] MEDS ORDERED: MIDAZOLAM HCL 5 MG/5 ML VIAL ONE ×2 (13:05→15:10)
[2021-05-25] MEDS ORDERED: FENTANYL CITRATE/PF 50MCG/ML 5ML VIAL ONE ×2 (13:05→15:10)
[2021-05-25] MEDS ORDERED: METOCLOPRAMIDE HCL 10MG/2ML VIAL ONE (13:58)
[2021-05-25] MEDS ORDERED: ONDANSETRON HCL 4MG/2ML INJ ONE (13:58)
[2021-05-25] MEDS ORDERED: CEFAZOLIN SODIUM 1000MG/VIAL ONE (13:58)
[2021-05-25] MEDS ORDERED: PHENYLEPHRINE HCL 10 MG/ML 1ML (IV VIAL) IV ONE (14:04)
[2021-05-25] MEDS: ATORVASTATIN CALCIUM 40MG TABLET PO SCH (20:30)
[2021-05-25] MEDS: TERAZOSIN HCL 5MG CAPSULE PO SCH (20:30)
[2021-05-26] VITALS (84 sets, daily range): BP systolic 72–122; BP diastolic 40–93
[2021-05-26] MEDS: NITROGLYCERIN OINT 1GM/INCH UDPKT TD SCH ×3 (05:48→21:36)
[2021-05-26] MEDS: HYDROCODONE/ACETAMINOPHEN 5/325MG TABLET PO PRN ×2 (05:49→19:50)
[2021-05-26 05:56] LABS: MEAN CORPUSCULAR HEMOGLOBIN 27.9 pg (28.0-32.0); MEAN CORPUSCULAR VOLUME 89.6 fL (80.0-94.0); MEAN PLATELET VOLUME 8.4 fl (7.4-10.4); PLATELET 180 x1000/uL (130-400); RED BLOOD CELL COUNT 3.57 mill/uL (4.7-6.1); RED CELL DISTRIBUTION WIDTH 18.5 % (11.6-14.6)
[2021-05-26] MEDS: CARVEDILOL 6.25 MG TABLET PO SCH ×2 (08:11→21:37)
[2021-05-26] MEDS: TAMSULOSIN HCL 0.4MG SR CAPSULE PO SCH (08:11)
[2021-05-26] MEDS: GABAPENTIN 100MG CAPSULE PO SCH ×3 (08:11→17:20)
[2021-05-26] MEDS: OXYBUTYNIN CHLORIDE 5MG TABLET PO SCH ×2 (08:12→21:36)
[2021-05-26] MEDS: GUAIFENESIN 600MG ER TABLET PO SCH ×2 (08:12→21:37)
[2021-05-26] MEDS: AMIODARONE HCL 200 MG TABLET PO SCH ×2 (08:12→17:20)
[2021-05-26] MEDS: ASPIRIN 81MG EC TABLET PO SCH (09:00)
[2021-05-26 11:34] LABS: PLATELET ESTIMATE NORMAL
[2021-05-26] MEDS: ATORVASTATIN CALCIUM 40MG TABLET PO SCH (21:36)
[2021-05-26] MEDS: TERAZOSIN HCL 5MG CAPSULE PO SCH (21:36)
[2021-05-27] VITALS (45 sets, daily range): BP systolic 91–142; BP diastolic 35–111
[2021-05-27] MEDS: HYDROCODONE/ACETAMINOPHEN 5/325MG TABLET PO PRN ×3 (00:39→19:48)
[2021-05-27] MEDS: NITROGLYCERIN OINT 1GM/INCH UDPKT TD SCH ×3 (05:46→21:29)
[2021-05-27] MEDS: BENZONATATE 100MG CAPSULE PO PRN (06:10)
[2021-05-27 06:33] LABS: BASOPHILS % 0.8 % (0.0-2.0); EOSINOPHILS % 1.6 % (0.0-5.0); HEMATOCRIT. 32.6 % (42.0-52.0); HEMOGLOBIN. 10.1 g/dL (14.0-18.0); LYMPHOCYTES % 8.6 % (20.0-50.0); MEAN CORPUSCULAR VOLUME 90.1 fL (80.0-94.0); MEAN PLATELET VOLUME 8.6 fl (7.4-10.4); MONOCYTES % 8.6 % (2.0-8.0); NEUTROPHILS % 80.4 % (40.0-76.0); PLATELET 188 x1000/uL (130-400); RED BLOOD CELL COUNT 3.62 mill/uL (4.7-6.1); RED CELL DISTRIBUTION WIDTH 17.8 % (11.6-14.6)
[2021-05-27] MEDS: CARVEDILOL 6.25 MG TABLET PO SCH ×2 (09:09→21:29)
[2021-05-27] MEDS: GABAPENTIN 100MG CAPSULE PO SCH ×3 (09:10→16:26)
[2021-05-27] MEDS: OXYBUTYNIN CHLORIDE 5MG TABLET PO SCH ×2 (09:11→21:30)
[2021-05-27] MEDS: TAMSULOSIN HCL 0.4MG SR CAPSULE PO SCH (09:11)
[2021-05-27] MEDS: GUAIFENESIN 600MG ER TABLET PO SCH ×2 (09:11→21:29)
[2021-05-27] MEDS: ASPIRIN 81MG EC TABLET PO SCH (09:11)
[2021-05-27] MEDS: AMIODARONE HCL 200 MG TABLET PO SCH ×2 (09:11→17:17)
[2021-05-27] MEDS: APIXABAN 2.5 MG TABLET PO SCH (16:25)
[2021-05-27] MEDS: ATORVASTATIN CALCIUM 40MG TABLET PO SCH (21:30)
[2021-05-27] MEDS: TERAZOSIN HCL 5MG CAPSULE PO SCH (21:30)
[2021-05-28] VITALS (13 sets, daily range): BP systolic 89–145; BP diastolic 50–96
[2021-05-28] MEDS: HYDROCODONE/ACETAMINOPHEN 5/325MG TABLET PO PRN ×4 (03:01→23:52)
[2021-05-28] MEDS: NITROGLYCERIN OINT 1GM/INCH UDPKT TD SCH ×3 (05:42→23:54)
[2021-05-28 06:50] LABS: EOSINOPHILS % 1.6 % (0.0-5.0); HEMATOCRIT. 33.7 % (42.0-52.0); HEMOGLOBIN. 10.2 g/dL (14.0-18.0); LYMPHOCYTES % 8.2 % (20.0-50.0); MEAN CORPUSCULAR VOLUME 92.4 fL (80.0-94.0); MEAN PLATELET VOLUME 8.2 fl (7.4-10.4); MONOCYTES % 10.2 % (2.0-8.0); PLATELET 174 x1000/uL (130-400); RED BLOOD CELL COUNT 3.64 mill/uL (4.7-6.1); RED CELL DISTRIBUTION WIDTH 18.2 % (11.6-14.6)
[2021-05-28] MEDS: AMIODARONE HCL 200 MG TABLET PO SCH ×2 (07:22→16:24)
[2021-05-28] MEDS: OXYBUTYNIN CHLORIDE 5MG TABLET PO SCH ×2 (08:01→23:52)
[2021-05-28] MEDS: ASPIRIN 81MG EC TABLET PO SCH (08:01)
[2021-05-28] MEDS: APIXABAN 2.5 MG TABLET PO SCH ×2 (08:02→16:24)
[2021-05-28] MEDS: GUAIFENESIN 600MG ER TABLET PO SCH ×2 (08:02→23:53)
[2021-05-28] MEDS: GABAPENTIN 100MG CAPSULE PO SCH ×3 (08:02→16:23)
[2021-05-28] MEDS: TAMSULOSIN HCL 0.4MG SR CAPSULE PO SCH (08:02)
[2021-05-28] MEDS: CARVEDILOL 6.25 MG TABLET PO SCH ×2 (09:23→23:53)
[2021-05-28] MEDS: BENZONATATE 100MG CAPSULE PO PRN (09:51)
[2021-05-28] MEDS: TERAZOSIN HCL 5MG CAPSULE PO SCH (23:53)
[2021-05-28] MEDS: ATORVASTATIN CALCIUM 40MG TABLET PO SCH (23:53)
[2021-05-29] VITALS (16 sets, daily range): BP systolic 91–152; BP diastolic 57–111
[2021-05-29] MEDS: NITROGLYCERIN OINT 1GM/INCH UDPKT TD SCH ×2 (06:00→22:30)
[2021-05-29] MEDS: HYDROCODONE/ACETAMINOPHEN 5/325MG TABLET PO PRN ×3 (06:28→18:53)
[2021-05-29 06:36] LABS: BASOPHILS % 0.9 % (0.0-2.0); EOSINOPHILS % 1.8 % (0.0-5.0); HEMATOCRIT. 32.1 % (42.0-52.0); HEMOGLOBIN. 9.9 g/dL (14.0-18.0); MEAN CORPUSCULAR HEMOGLOBIN 28.1 pg (28.0-32.0); MEAN PLATELET VOLUME 8.1 fl (7.4-10.4); MONOCYTES % 9.6 % (2.0-8.0); NEUTROPHILS % 75.7 % (40.0-76.0); PLATELET 168 x1000/uL (130-400); RED BLOOD CELL COUNT 3.52 mill/uL (4.7-6.1); RED CELL DISTRIBUTION WIDTH 18.2 % (11.6-14.6)
[2021-05-29] MEDS: AMIODARONE HCL 200 MG TABLET PO SCH ×3 (07:20→16:20)
[2021-05-29] MEDS: GABAPENTIN 100MG CAPSULE PO SCH ×3 (08:34→16:14)
[2021-05-29] MEDS: OXYBUTYNIN CHLORIDE 5MG TABLET PO SCH ×2 (08:35→21:15)
[2021-05-29] MEDS: ASPIRIN 81MG EC TABLET PO SCH (08:35)
[2021-05-29] MEDS: APIXABAN 2.5 MG TABLET PO SCH ×2 (08:35→16:14)
[2021-05-29] MEDS: TAMSULOSIN HCL 0.4MG SR CAPSULE PO SCH (08:35)
[2021-05-29] MEDS: CARVEDILOL 6.25 MG TABLET PO SCH ×2 (08:35→21:15)
[2021-05-29] MEDS: GUAIFENESIN 600MG ER TABLET PO SCH ×2 (08:36→21:15)
[2021-05-29] MEDS: BENZONATATE 100MG CAPSULE PO PRN (18:53)
[2021-05-29] MEDS: TERAZOSIN HCL 5MG CAPSULE PO SCH (21:00)
[2021-05-29] MEDS: ATORVASTATIN CALCIUM 40MG TABLET PO SCH (21:15)
[2021-05-30] VITALS (12 sets, daily range): BP systolic 94–113; BP diastolic 40–96
[2021-05-30] MEDS: HYDROCODONE/ACETAMINOPHEN 5/325MG TABLET PO PRN (02:19)
[2021-05-30] MEDS: BENZONATATE 100MG CAPSULE PO PRN (02:19)
[2021-05-30 06:35] LABS: BASOPHILS % 0.9 % (0.0-2.0); EOSINOPHILS % 2.1 % (0.0-5.0); HEMATOCRIT. 33.1 % (42.0-52.0); HEMOGLOBIN. 10.7 g/dL (14.0-18.0); LYMPHOCYTES % 11.1 % (20.0-50.0); MEAN CORPUSCULAR HEMOGLOBIN 29.5 pg (28.0-32.0); MEAN CORPUSCULAR VOLUME 91.7 fL (80.0-94.0); MEAN PLATELET VOLUME 8.4 fl (7.4-10.4); MONOCYTES % 9.3 % (2.0-8.0); NEUTROPHILS % 76.6 % (40.0-76.0); PLATELET 160 x1000/uL (130-400); RED BLOOD CELL COUNT 3.61 mill/uL (4.7-6.1); RED CELL DISTRIBUTION WIDTH 18.5 % (11.6-14.6)
[2021-05-30] MEDS: APIXABAN 2.5 MG TABLET PO SCH ×2 (08:31→16:11)
[2021-05-30] MEDS: ASPIRIN 81MG EC TABLET PO SCH (08:31)
[2021-05-30] MEDS: GABAPENTIN 100MG CAPSULE PO SCH ×3 (08:31→16:11)
[2021-05-30] MEDS: OXYBUTYNIN CHLORIDE 5MG TABLET PO SCH ×2 (08:31→20:40)
[2021-05-30] MEDS: TAMSULOSIN HCL 0.4MG SR CAPSULE PO SCH (08:31)
[2021-05-30] MEDS: GUAIFENESIN 600MG ER TABLET PO SCH ×2 (08:31→20:41)
[2021-05-30] MEDS: AMIODARONE HCL 200 MG TABLET PO SCH ×2 (08:32→16:11)
[2021-05-30] MEDS: CARVEDILOL 6.25 MG TABLET PO SCH ×2 (08:32→21:00)
[2021-05-30] MEDS: NITROGLYCERIN OINT 1GM/INCH UDPKT TD SCH ×2 (08:33→21:00)
[2021-05-30] MEDS: LISINOPRIL 2.5MG TABLET PO SCH (08:33)
[2021-05-30] MEDS: ATORVASTATIN CALCIUM 40MG TABLET PO SCH (20:40)
[2021-05-30] MEDS: TERAZOSIN HCL 5MG CAPSULE PO SCH (21:00)
[2021-05-31] VITALS (14 sets, daily range): BP systolic 99–127; BP diastolic 48–66
[2021-05-31] MEDS: HYDROCODONE/ACETAMINOPHEN 5/325MG TABLET PO PRN (02:57)
[2021-05-31] MEDS: AMIODARONE HCL 200 MG TABLET PO SCH ×2 (08:05→17:16)
[2021-05-31] MEDS: GUAIFENESIN 600MG ER TABLET PO SCH ×2 (08:05→21:22)
[2021-05-31] MEDS: OXYBUTYNIN CHLORIDE 5MG TABLET PO SCH ×2 (08:05→21:21)
[2021-05-31] MEDS: ASPIRIN 81MG EC TABLET PO SCH (08:05)
[2021-05-31] MEDS: GABAPENTIN 100MG CAPSULE PO SCH ×3 (08:06→17:16)
[2021-05-31] MEDS: APIXABAN 2.5 MG TABLET PO SCH ×2 (08:06→17:16)
[2021-05-31] MEDS: CARVEDILOL 6.25 MG TABLET PO SCH (08:08)
[2021-05-31] MEDS: NITROGLYCERIN OINT 1GM/INCH UDPKT TD SCH ×2 (09:15→21:23)
[2021-05-31] MEDS: TAMSULOSIN HCL 0.4MG SR CAPSULE PO SCH (11:10)
[2021-05-31] MEDS: LISINOPRIL 2.5MG TABLET PO SCH (11:11)
[2021-05-31] MEDS: TERAZOSIN HCL 5MG CAPSULE PO SCH (21:00)
[2021-05-31] MEDS: ATORVASTATIN CALCIUM 40MG TABLET PO SCH (21:22)
[2021-05-31] MEDS: CARVEDILOL 3.125 MG TABLET PO SCH (21:22)
[2021-06-01] VITALS (15 sets, daily range): BP systolic 98–130; BP diastolic 46–80
[2021-06-01 08:04] LABS: BASOPHILS % 1.2 % (0.0-2.0); EOSINOPHILS % 2.4 % (0.0-5.0); HEMATOCRIT. 33.1 % (42.0-52.0); HEMOGLOBIN. 10.3 g/dL (14.0-18.0); LYMPHOCYTES % 12.3 % (20.0-50.0); MEAN CORPUSCULAR HEMOGLOBIN 28.1 pg (28.0-32.0); MEAN PLATELET VOLUME 8.5 fl (7.4-10.4); MONOCYTES % 9.7 % (2.0-8.0); NEUTROPHILS % 74.4 % (40.0-76.0); PLATELET 174 x1000/uL (130-400); RED BLOOD CELL COUNT 3.68 mill/uL (4.7-6.1); RED CELL DISTRIBUTION WIDTH 18.3 % (11.6-14.6)
[2021-06-01] MEDS: ASPIRIN 81MG EC TABLET PO SCH (08:50)
[2021-06-01] MEDS: OXYBUTYNIN CHLORIDE 5MG TABLET PO SCH ×2 (08:51→20:55)
[2021-06-01] MEDS: GABAPENTIN 100MG CAPSULE PO SCH ×3 (08:51→18:41)
[2021-06-01] MEDS: NITROGLYCERIN OINT 1GM/INCH UDPKT TD SCH ×2 (08:51→20:54)
[2021-06-01] MEDS: AMIODARONE HCL 200 MG TABLET PO SCH (08:51)
[2021-06-01] MEDS: TAMSULOSIN HCL 0.4MG SR CAPSULE PO SCH (08:52)
[2021-06-01] MEDS: APIXABAN 2.5 MG TABLET PO SCH ×2 (08:52→18:41)
[2021-06-01] MEDS: CARVEDILOL 3.125 MG TABLET PO SCH ×2 (08:52→20:55)
[2021-06-01] MEDS: LISINOPRIL 2.5MG TABLET PO SCH (08:58)
[2021-06-01] MEDS: GUAIFENESIN 600MG ER TABLET PO SCH ×2 (08:58→20:55)
[2021-06-01] MEDS ORDERED: NALOXONE HCL 0.4MG/ML VIAL IV PRN (09:15)
[2021-06-01] MEDS: TERAZOSIN HCL 5MG CAPSULE PO SCH (20:54)
[2021-06-01] MEDS: ATORVASTATIN CALCIUM 40MG TABLET PO SCH (20:54)
[2021-06-02] VITALS (14 sets, daily range): BP systolic 102–143; BP diastolic 31–84
[2021-06-02 07:51] LABS: EOSINOPHILS % 2.7 % (0.0-5.0); HEMATOCRIT. 32.4 % (42.0-52.0); HEMOGLOBIN. 9.9 g/dL (14.0-18.0); LYMPHOCYTES % 8.9 % (20.0-50.0); MEAN CORPUSCULAR HEMOGLOBIN 27.6 pg (28.0-32.0); MEAN CORPUSCULAR VOLUME 90.1 fL (80.0-94.0); MEAN PLATELET VOLUME 8.4 fl (7.4-10.4); MONOCYTES % 11.6 % (2.0-8.0); NEUTROPHILS % 75.8 % (40.0-76.0); PLATELET 160 x1000/uL (130-400); RED CELL DISTRIBUTION WIDTH 18.2 % (11.6-14.6)
[2021-06-02] MEDS: TAMSULOSIN HCL 0.4MG SR CAPSULE PO SCH (08:57)
[2021-06-02] MEDS: NITROGLYCERIN OINT 1GM/INCH UDPKT TD SCH ×2 (08:58→20:48)
[2021-06-02] MEDS: APIXABAN 2.5 MG TABLET PO SCH ×2 (08:58→16:18)
[2021-06-02] MEDS: LISINOPRIL 2.5MG TABLET PO SCH (08:58)
[2021-06-02] MEDS: GUAIFENESIN 600MG ER TABLET PO SCH ×2 (08:58→20:48)
[2021-06-02] MEDS: ASPIRIN 81MG EC TABLET PO SCH (08:58)
[2021-06-02] MEDS: OXYBUTYNIN CHLORIDE 5MG TABLET PO SCH ×2 (08:59→20:47)
[2021-06-02] MEDS: CARVEDILOL 3.125 MG TABLET PO SCH ×2 (08:59→20:48)
[2021-06-02] MEDS: GABAPENTIN 100MG CAPSULE PO SCH ×3 (08:59→16:18)
[2021-06-02] MEDS ORDERED: AMIODARONE HCL 200 MG TABLET PO SCH (09:00)
[2021-06-02] MEDS: TERAZOSIN HCL 5MG CAPSULE PO SCH (20:48)
[2021-06-02] MEDS: ATORVASTATIN CALCIUM 40MG TABLET PO SCH (20:48)
== END 2021-06-02 21:15 | DRG 179 ==
LOC: 3WST 15:00 → CVICU 05-24 12:56 → 3WST 05-28 01:40
PROVIDERS: ADMIT Specialist; ATTEND Internal Medicine
PROC: 5A1D70Z Performance of Urinary Filtration, Intermittent, Less than 6 Hours Per Day (ICD-10-PCS; 2021-05-22)
PROC: 4A023N7 Measurement of Cardiac Sampling and Pressure, Left Heart, Percutaneous Approach (ICD-10-PCS; 2021-05-23)
PROC: B211YZZ Fluoroscopy of Multiple Coronary Arteries using Other Contrast (ICD-10-PCS; 2021-05-23)
PROC: 5A1D70Z Performance of Urinary Filtration, Intermittent, Less than 6 Hours Per Day (ICD-10-PCS; 2021-05-23)
PROC: 02H63KZ Insertion of Defibrillator Lead into Right Atrium, Percutaneous Approach (ICD-10-PCS; principal; 2021-05-24)
PROC: 0JH609Z Insertion of Cardiac Resynchronization Defibrillator Pulse Generator into Chest Subcutaneous Tissue and Fascia, Open Approach (ICD-10-PCS; 2021-05-24)
PROC: 02HL3KZ Insertion of Defibrillator Lead into Left Ventricle, Percutaneous Approach (ICD-10-PCS; 2021-05-24)
PROC: 02HK3KZ Insertion of Defibrillator Lead into Right Ventricle, Percutaneous Approach (ICD-10-PCS; 2021-05-24)
PROC: 02WA3MZ Revision of Cardiac Lead in Heart, Percutaneous Approach (ICD-10-PCS; 2021-05-25)
PROC: 5A1D70Z Performance of Urinary Filtration, Intermittent, Less than 6 Hours Per Day (ICD-10-PCS; 2021-05-25)
PROC: 5A1D70Z Performance of Urinary Filtration, Intermittent, Less than 6 Hours Per Day (ICD-10-PCS; 2021-05-27)
PROC: 5A1D70Z Performance of Urinary Filtration, Intermittent, Less than 6 Hours Per Day (ICD-10-PCS; 2021-05-28)
PROC: 5A1D70Z Performance of Urinary Filtration, Intermittent, Less than 6 Hours Per Day (ICD-10-PCS; 2021-05-30)
PROC: 5A1D70Z Performance of Urinary Filtration, Intermittent, Less than 6 Hours Per Day (ICD-10-PCS; 2021-06-01)
DX: I13.2 Hypertensive heart and chronic kidney disease with heart failure and with stage 5 chronic kidney disease, or end stage renal disease (principal); I47.2 Ventricular tachycardia; N17.9 Acute kidney failure, unspecified; I82.432 Acute embolism and thrombosis of left popliteal vein; I27.20 Pulmonary hypertension, unspecified; N18.6 End stage renal disease; I48.19 Other persistent atrial fibrillation; I50.23 Acute on chronic systolic (congestive) heart failure; E11.22 Type 2 diabetes mellitus with diabetic chronic kidney disease; D64.9 Anemia, unspecified; E66.01 Morbid (severe) obesity due to excess calories; I25.10 Atherosclerotic heart disease of native coronary artery without angina pectoris; I25.5 Ischemic cardiomyopathy; I48.0 Paroxysmal atrial fibrillation; J44.9 Chronic obstructive pulmonary disease, unspecified; N40.0 Benign prostatic hyperplasia without lower urinary tract symptoms; E87.5 Hyperkalemia; F10.21 Alcohol dependence, in remission; I34.0 Nonrheumatic mitral (valve) insufficiency; I44.7 Left bundle-branch block, unspecified; I87.2 Venous insufficiency (chronic) (peripheral); L30.8 Other specified dermatitis; K21.9 Gastro-esophageal reflux disease without esophagitis; S80.822A Blister (nonthermal), left lower leg, initial encounter; E11.51 Type 2 diabetes mellitus with diabetic peripheral angiopathy without gangrene; G47.33 Obstructive sleep apnea (adult) (pediatric); S80.821A Blister (nonthermal), right lower leg, initial encounter; Z20.822 Contact with and (suspected) exposure to COVID-19; X58.XXXA Exposure to other specified factors, initial encounter; Z82.49 Family history of ischemic heart disease and other diseases of the circulatory system; I25.2 Old myocardial infarction; Z83.3 Family history of diabetes mellitus; Z85.46 Personal history of malignant neoplasm of prostate; Z87.891 Personal history of nicotine dependence; Z95.5 Presence of coronary angioplasty implant and graft; Z99.2 Dependence on renal dialysis; Z99.81 Dependence on supplemental oxygen; Y93.89 Activity, other specified; Y92.89 Other specified places as the place of occurrence of the external cause; Z79.01 Long term (current) use of anticoagulants; Z79.899 Other long term (current) drug therapy; Y99.8 Other external cause status; Z68.37 Body mass index [BMI] 37.0-37.9, adult
CPT/HCPCS: 33215; 33225; 33249; 36415; 71045; 75820; 80048; 80053; 80061; 80076; 80305; 81003; 82550; 82553; 83036; 83735; 83880; 84100; 84443; 84478; 84484; 84550; 85025; 86705; 86706; 86709; 86803; 87340; 87426; 90686; 93005; 93306; 93312; 93458; 93640; 93923; 93970; 97162; 97166; 97530; A4565; A6261; C1769; C1882; C1887; C1893; C1898; C1899; C1900; J0282; J0690; J1580; J1644; J1650; J2250; J2370; J2405; J2704; J2765; J3010; J3490; Q9967; U0003; U0005

== ENCOUNTER 2021-06-11 10:13 | Inpatient (IN) | payer MEDICARE, MEDICAID ==
[~2021-06-11] VITALS: Ht 172.7 cm; Wt 117.9 kg
[2021-06-11 11:19] LABS: HEMATOCRIT. 36.9 % (42.0-52.0); HEMOGLOBIN. 10.9 g/dL (14.0-18.0); MEAN CORPUSCULAR HEMOGLOBIN 27.1 pg (28.0-32.0); MEAN CORPUSCULAR VOLUME 91.9 fL (80.0-94.0); MEAN PLATELET VOLUME 8.7 fl (7.4-10.4); PLATELET 157 x1000/uL (130-400); RED BLOOD CELL COUNT 4.01 mill/uL (4.7-6.1); RED CELL DISTRIBUTION WIDTH 18.4 % (11.6-14.6)
[2021-06-11 11:26] LABS: CHLORIDE 99 mEq/L (98-107)
[2021-06-11 11:29] LABS: INR 1.5; PROTHROMBIN TIME 15.4 sec (9.6-11.0)
[2021-06-11] MEDS ORDERED: VANCOMYCIN 1 G PREMIX 200 ML IV ONE (11:45)
[2021-06-11] MEDS ORDERED: PIPERACILLIN/TAZ 3.375G PREMIX 50 ML IV ONE (11:45)
[2021-06-11 11:54] LABS: PLATELET ESTIMATE NORMAL
[2021-06-11 12:59] LABS: HEPATITIS B SURFACE ANTIGEN NEGATIVE
[2021-06-11] MEDS ORDERED: GUAIFENESIN 200MG/10ML SUGAR FREE UDC PO PRN (13:30)
[2021-06-11] MEDS ORDERED: DIPHENHYDRAMINE 50MG/ML VIAL IV PRN (13:30)
[2021-06-11] MEDS ORDERED: NITROGLYCERIN 0.4MG TABLET SL SL PRN (13:30)
[2021-06-11] MEDS ORDERED: MAGNESIUM/ALUMINUM HYDROXIDE/SIMETHICONE 30ML UDC PO PRN (13:30)
[2021-06-11] MEDS ORDERED: IPRATROPIUM/ALBUTEROL 0.5-3(2.5)MG/3ML NEB NEB PRN (13:30)
[2021-06-11] MEDS ORDERED: ZOLPIDEM TARTRATE 5MG TABLET PO PRN (13:30)
[2021-06-11] MEDS ORDERED: CLONIDINE 0.1MG TABLET PO PRN (13:30)
[2021-06-11] MEDS ORDERED: PIPERACILLIN/TAZ 3.375G PREMIX 50 ML IV SCH (13:30)
[2021-06-11] MEDS ORDERED: ONDANSETRON HCL 4MG/2ML INJ IV PRN (13:30)
[2021-06-11] MEDS ORDERED: ACETAMINOPHEN 325MG TABLET PO PRN ×2 (13:30)
[2021-06-11] MEDS: FAMOTIDINE 20MG TABLET PO SCH (15:00)
[2021-06-11] MEDS ORDERED: VANCOMYCIN 1 G PREMIX 200 ML IV NR ×2 (15:00→19:30)
[2021-06-11] MEDS: ENOXAPARIN 40MG/0.4ML SYR SUBCUT SCH (15:00)
[2021-06-11 16:17] VITALS: BP 69/42
[2021-06-11] MEDS: SEVELAMER CARBONATE 800 MG TABLET PO SCH (17:40)
[2021-06-11] MEDS ORDERED: NALOXONE HCL 0.4MG/ML VIAL IV PRN (18:00)
[2021-06-11] MEDS: CARVEDILOL 3.125 MG TABLET PO SCH (18:00)
[2021-06-11 18:48] LABS: CREATINE KINASE MB FRACTION 1.2 ng/mL (0.5-3.6)
[2021-06-11 20:00] VITALS: BP 81/56
[2021-06-11 20:45] VITALS: BP 71/40
[2021-06-11] MEDS ORDERED: PIPERACILLIN/TAZOBACTAM 3.375 G in DEXTROSE 5% WATER 50 ML IV SCH (21:00)
[2021-06-11] MEDS: MIDODRINE HCL 5MG TABLET PO SCH (21:11)
[2021-06-11] MEDS: ASCORBIC ACID 500 MG TABLET PO SCH (21:12)
[2021-06-11 22:00] VITALS: BP 76/50
[2021-06-11 22:55] VITALS: BP 72/53
[2021-06-11] MEDS ORDERED: SODIUM CHLORIDE 0.9% 1000ML BAG (SEPSIS BOLUS) IV NR (23:00)
[2021-06-12] VITALS (11 sets, daily range): BP systolic 71–96; BP diastolic 44–60
[2021-06-12 01:26] LABS: CREATINE KINASE MB FRACTION 1.6 ng/mL (0.5-3.6)
[2021-06-12] MEDS ORDERED: PIPERACILLIN/TAZOBACTAM 3.375 G in DEXTROSE 5% WATER 50 ML IV NR (02:00)
[2021-06-12] MEDS: CARVEDILOL 3.125 MG TABLET PO SCH ×2 (05:09→18:00)
[2021-06-12] MEDS ORDERED: PIPERACILLIN/TAZOBACTAM 3.375 G in DEXTROSE 5% WATER 50 ML IV SCH (09:00)
[2021-06-12] MEDS: CHOLECALCIFEROL (D3) 1000 UNIT TABLET PO SCH (09:05)
[2021-06-12] MEDS: SEVELAMER CARBONATE 800 MG TABLET PO SCH ×3 (09:05→18:24)
[2021-06-12] MEDS: MIDODRINE HCL 5MG TABLET PO SCH ×3 (09:06→18:25)
[2021-06-12] MEDS: ZINC SULFATE 220 MG ( 50 ) CAPSULE PO SCH (09:06)
[2021-06-12] MEDS: CLOPIDOGREL 75MG TABLET PO SCH (09:07)
[2021-06-12] MEDS: ASPIRIN 81MG EC TABLET PO SCH (09:07)
[2021-06-12] MEDS: FAMOTIDINE 20MG TABLET PO SCH (09:07)
[2021-06-12] MEDS: ASCORBIC ACID 500 MG TABLET PO SCH ×2 (09:07→21:00)
[2021-06-12 09:36] LABS: HEMATOCRIT. 31.7 % (42.0-52.0); HEMOGLOBIN. 9.8 g/dL (14.0-18.0); MEAN CORPUSCULAR HEMOGLOBIN 28.1 pg (28.0-32.0); MEAN CORPUSCULAR VOLUME 90.3 fL (80.0-94.0); PLATELET 123 x1000/uL (130-400); RED BLOOD CELL COUNT 3.51 mill/uL (4.7-6.1); RED CELL DISTRIBUTION WIDTH 18.2 % (11.6-14.6)
[2021-06-12 09:56] LABS: CHLORIDE 99 mEq/L (98-107)
[2021-06-12] MEDS ORDERED: SODIUM CHLORIDE 0.9% 500 ML IV ONE (10:15)
[2021-06-12] MEDS: ENOXAPARIN 40MG/0.4ML SYR SUBCUT SCH (18:24)
[2021-06-12 19:53] LABS: PLATELET ESTIMATE SLIGHTLY DECREASED
[2021-06-13] MEDS: TRAMADOL 50MG TABLET PO PRN ×2 (03:59→18:15)
[2021-06-13 04:00] VITALS: BP 83/60
[2021-06-13] MEDS: CARVEDILOL 3.125 MG TABLET PO SCH ×2 (05:40→17:50)
[2021-06-13] MEDS ORDERED: LIDOCAINE HCL 2% JELLY 5ML ONE (08:40)
[2021-06-13] MEDS ORDERED: TETRACAINE/BENZOCAINE/BUTAMBEN 20 GM SPRAY MM ONE (08:40)
[2021-06-13] MEDS: ASCORBIC ACID 500 MG TABLET PO SCH ×2 (09:00→21:47)
[2021-06-13] MEDS: FAMOTIDINE 20MG TABLET PO SCH (09:00)
[2021-06-13] MEDS: ASPIRIN 81MG EC TABLET PO SCH (09:00)
[2021-06-13] MEDS: CHOLECALCIFEROL (D3) 1000 UNIT TABLET PO SCH (09:00)
[2021-06-13] MEDS: MIDODRINE HCL 5MG TABLET PO SCH ×3 (09:00→17:50)
[2021-06-13] MEDS: ZINC SULFATE 220 MG ( 50 ) CAPSULE PO SCH (09:00)
[2021-06-13] MEDS: CLOPIDOGREL 75MG TABLET PO SCH (09:00)
[2021-06-13] MEDS ORDERED: MIDAZOLAM HCL 2 MG/2 ML VIAL ONE (09:55)
[2021-06-13] MEDS ORDERED: FENTANYL CITRATE/PF 50MCG/ML 2ML VIAL ONE (09:55)
[2021-06-13] MEDS ORDERED: PHENYLEPHRINE 100MCG/ML 10ML VIAL (CATH LAB) IV ONE (10:00)
[2021-06-13 10:34] LABS: HEMATOCRIT. 33.1 % (42.0-52.0); HEMOGLOBIN. 10.1 g/dL (14.0-18.0); MEAN CORPUSCULAR HEMOGLOBIN 27.4 pg (28.0-32.0); MEAN PLATELET VOLUME 9.4 fl (7.4-10.4); PLATELET 125 x1000/uL (130-400); RED BLOOD CELL COUNT 3.68 mill/uL (4.7-6.1); RED CELL DISTRIBUTION WIDTH 18.6 % (11.6-14.6)
[2021-06-13 10:42] LABS: INR 1.2; PARTIAL THROMBOPLASTIN TIME 34.6 sec (23.4-31.0); PROTHROMBIN TIME 12.9 sec (9.6-11.0)
[2021-06-13] MEDS ORDERED: ENOXAPARIN 60MG/0.6ML SYR SUBCUT NR (12:00)
[2021-06-13] MEDS ORDERED: DOBUTAMINE 250MG PREMIX 250 ML IV NR (14:00)
[2021-06-13 16:01] VITALS: BP 104/58
[2021-06-13] MEDS ORDERED: VANCOMYCIN 1500MG in DEXTROSE 5% WATER 250ML IV NR (17:00)
[2021-06-13 17:11] LABS: PLATELET ESTIMATE DECREASED
[2021-06-13 17:47] VITALS: BP 101/58
[2021-06-13] MEDS: SEVELAMER CARBONATE 800 MG TABLET PO SCH (17:48)
[2021-06-13] MEDS: APIXABAN 2.5 MG TABLET PO SCH (17:49)
[2021-06-13 20:00] VITALS: BP 108/66
[2021-06-13] MEDS: AMIODARONE HCL 200 MG TABLET PO SCH (21:47)
[2021-06-13 22:00] VITALS: BP 106/68
[2021-06-14] VITALS (12 sets, daily range): BP systolic 114–154; BP diastolic 63–91
[2021-06-14] MEDS: CARVEDILOL 3.125 MG TABLET PO SCH ×2 (07:09→18:00)
[2021-06-14 07:58] LABS: HEMATOCRIT. 33.1 % (42.0-52.0); HEMOGLOBIN. 10.2 g/dL (14.0-18.0); MEAN CORPUSCULAR HEMOGLOBIN 27.6 pg (28.0-32.0); MEAN CORPUSCULAR VOLUME 89.4 fL (80.0-94.0); PLATELET 126 x1000/uL (130-400); RED BLOOD CELL COUNT 3.71 mill/uL (4.7-6.1)
[2021-06-14] MEDS ORDERED: LIDOCAINE HCL 1% 30ML VIAL (10MG/ML) ONE (08:50)
[2021-06-14] MEDS: ASPIRIN 81MG EC TABLET PO SCH (09:17)
[2021-06-14] MEDS: DOCUSATE SODIUM 100MG CAPSULE PO PRN ×2 (09:17→18:30)
[2021-06-14] MEDS: APIXABAN 2.5 MG TABLET PO SCH ×2 (09:18→18:31)
[2021-06-14] MEDS: FAMOTIDINE 20MG TABLET PO SCH (09:18)
[2021-06-14] MEDS: CLOPIDOGREL 75MG TABLET PO SCH (09:18)
[2021-06-14] MEDS: ASCORBIC ACID 500 MG TABLET PO SCH ×2 (09:18→23:49)
[2021-06-14] MEDS: ZINC SULFATE 220 MG ( 50 ) CAPSULE PO SCH (09:18)
[2021-06-14] MEDS: SEVELAMER CARBONATE 800 MG TABLET PO SCH ×4 (09:18→18:30)
[2021-06-14] MEDS: CHOLECALCIFEROL (D3) 1000 UNIT TABLET PO SCH (09:18)
[2021-06-14] MEDS: AMIODARONE HCL 200 MG TABLET PO SCH ×2 (09:18→23:52)
[2021-06-14] MEDS: MIDODRINE HCL 5MG TABLET PO SCH ×4 (09:19→18:31)
[2021-06-14] MEDS: DOBUTAMINE 250MG PREMIX 250 ML IV SCH ×2 (13:22→19:58)
[2021-06-14 16:12] LABS: PLATELET ESTIMATE DECREASED
[2021-06-14] MEDS ORDERED: VANCOMYCIN 1 G PREMIX 200 ML IV NR (18:00)
[2021-06-15] VITALS (12 sets, daily range): BP systolic 111–143; BP diastolic 62–83
[2021-06-15] MEDS: DOBUTAMINE 250MG PREMIX 250 ML IV SCH ×3 (02:32→17:39)
[2021-06-15 06:31] LABS: MEAN CORPUSCULAR HEMOGLOBIN 27.7 pg (28.0-32.0); MEAN CORPUSCULAR VOLUME 89.1 fL (80.0-94.0); MEAN PLATELET VOLUME 8.4 fl (7.4-10.4); PLATELET 130 x1000/uL (130-400); RED CELL DISTRIBUTION WIDTH 18.4 % (11.6-14.6)
[2021-06-15] MEDS: CARVEDILOL 3.125 MG TABLET PO SCH ×2 (07:03→17:45)
[2021-06-15] MEDS: ZINC SULFATE 220 MG ( 50 ) CAPSULE PO SCH (08:15)
[2021-06-15] MEDS: ASPIRIN 81MG EC TABLET PO SCH (08:16)
[2021-06-15] MEDS: MIDODRINE HCL 5MG TABLET PO SCH ×3 (08:17→17:38)
[2021-06-15] MEDS: CLOPIDOGREL 75MG TABLET PO SCH (08:18)
[2021-06-15] MEDS: APIXABAN 2.5 MG TABLET PO SCH ×2 (08:18→17:38)
[2021-06-15] MEDS: ASCORBIC ACID 500 MG TABLET PO SCH ×2 (08:19→20:36)
[2021-06-15] MEDS: SEVELAMER CARBONATE 800 MG TABLET PO SCH ×3 (08:20→17:38)
[2021-06-15] MEDS: FAMOTIDINE 20MG TABLET PO SCH (08:21)
[2021-06-15] MEDS: TRAMADOL 50MG TABLET PO PRN (08:21)
[2021-06-15] MEDS: CHOLECALCIFEROL (D3) 1000 UNIT TABLET PO SCH (08:22)
[2021-06-15] MEDS: AMIODARONE HCL 200 MG TABLET PO SCH ×2 (08:22→20:36)
[2021-06-15] MEDS ORDERED: VANCOMYCIN 500 MG PREMIX 100 ML IV NR (20:00)
[2021-06-16] VITALS (11 sets, daily range): BP systolic 112–137; BP diastolic 31–82
[2021-06-16] MEDS: DOBUTAMINE 250MG PREMIX 250 ML IV SCH ×2 (05:19→17:48)
[2021-06-16] MEDS: CARVEDILOL 3.125 MG TABLET PO SCH ×2 (06:11→17:46)
[2021-06-16 08:36] LABS: HEMATOCRIT. 34.1 % (42.0-52.0); HEMOGLOBIN. 10.5 g/dL (14.0-18.0); MEAN CORPUSCULAR VOLUME 87.6 fL (80.0-94.0); MEAN PLATELET VOLUME 8.8 fl (7.4-10.4); PLATELET 161 x1000/uL (130-400); RED CELL DISTRIBUTION WIDTH 18.4 % (11.6-14.6)
[2021-06-16] MEDS: SEVELAMER CARBONATE 800 MG TABLET PO SCH ×3 (09:37→17:46)
[2021-06-16] MEDS: ZINC SULFATE 220 MG ( 50 ) CAPSULE PO SCH (09:38)
[2021-06-16] MEDS: ASPIRIN 81MG EC TABLET PO SCH (09:38)
[2021-06-16] MEDS: APIXABAN 2.5 MG TABLET PO SCH ×2 (09:38→17:46)
[2021-06-16] MEDS: AMIODARONE HCL 200 MG TABLET PO SCH ×2 (09:39→21:10)
[2021-06-16] MEDS: FAMOTIDINE 20MG TABLET PO SCH (09:39)
[2021-06-16] MEDS: CLOPIDOGREL 75MG TABLET PO SCH (09:40)
[2021-06-16] MEDS: MIDODRINE HCL 5MG TABLET PO SCH ×3 (09:41→17:46)
[2021-06-16] MEDS: ASCORBIC ACID 500 MG TABLET PO SCH ×2 (09:42→21:09)
[2021-06-16] MEDS: CHOLECALCIFEROL (D3) 1000 UNIT TABLET PO SCH (09:43)
[2021-06-16 14:13] LABS: PLATELET ESTIMATE NORMAL
[2021-06-16 22:29] LABS: PLATELET ESTIMATE NORMAL
[2021-06-17] VITALS (12 sets, daily range): BP systolic 100–150; BP diastolic 25–84
[2021-06-17] MEDS: CARVEDILOL 3.125 MG TABLET PO SCH ×2 (06:42→18:09)
[2021-06-17] MEDS: DOBUTAMINE 250MG PREMIX 250 ML IV SCH ×2 (06:42→13:08)
[2021-06-17] MEDS: CHOLECALCIFEROL (D3) 1000 UNIT TABLET PO SCH (08:45)
[2021-06-17] MEDS: ASCORBIC ACID 500 MG TABLET PO SCH ×2 (08:46→20:27)
[2021-06-17] MEDS: SEVELAMER CARBONATE 800 MG TABLET PO SCH ×3 (08:46→18:05)
[2021-06-17] MEDS: ASPIRIN 81MG EC TABLET PO SCH (08:46)
[2021-06-17] MEDS: CLOPIDOGREL 75MG TABLET PO SCH (08:46)
[2021-06-17] MEDS: MIDODRINE HCL 5MG TABLET PO SCH ×3 (08:46→18:06)
[2021-06-17] MEDS: AMIODARONE HCL 200 MG TABLET PO SCH ×2 (08:46→20:27)
[2021-06-17] MEDS: ZINC SULFATE 220 MG ( 50 ) CAPSULE PO SCH (08:46)
[2021-06-17] MEDS: FAMOTIDINE 20MG TABLET PO SCH (08:46)
[2021-06-17] MEDS: APIXABAN 2.5 MG TABLET PO SCH ×2 (08:47→18:05)
[2021-06-18] VITALS (12 sets, daily range): BP systolic 112–150; BP diastolic 72–91
[2021-06-18] MEDS: CARVEDILOL 3.125 MG TABLET PO SCH ×2 (06:22→17:31)
[2021-06-18] MEDS: SEVELAMER CARBONATE 800 MG TABLET PO SCH ×3 (07:20→17:31)
[2021-06-18] MEDS: MIDODRINE HCL 5MG TABLET PO SCH ×3 (09:00→17:31)
[2021-06-18 10:31] LABS: HEMATOCRIT. 31.4 % (42.0-52.0); HEMOGLOBIN. 9.7 g/dL (14.0-18.0); MEAN CORPUSCULAR HEMOGLOBIN 27.3 pg (28.0-32.0); MEAN CORPUSCULAR VOLUME 88.4 fL (80.0-94.0); MEAN PLATELET VOLUME 8.1 fl (7.4-10.4); PLATELET 187 x1000/uL (130-400); RED BLOOD CELL COUNT 3.56 mill/uL (4.7-6.1); RED CELL DISTRIBUTION WIDTH 18.6 % (11.6-14.6)
[2021-06-18 11:26] LABS: PLATELET ESTIMATE NORMAL
[2021-06-18] MEDS: ASPIRIN 81MG EC TABLET PO SCH (13:27)
[2021-06-18] MEDS: ASCORBIC ACID 500 MG TABLET PO SCH ×2 (13:28→21:07)
[2021-06-18] MEDS: CLOPIDOGREL 75MG TABLET PO SCH (13:28)
[2021-06-18] MEDS: FAMOTIDINE 20MG TABLET PO SCH (13:28)
[2021-06-18] MEDS: DOCUSATE SODIUM 100MG CAPSULE PO PRN (13:28)
[2021-06-18] MEDS: CHOLECALCIFEROL (D3) 1000 UNIT TABLET PO SCH (13:28)
[2021-06-18] MEDS: APIXABAN 2.5 MG TABLET PO SCH ×2 (13:28→17:00)
[2021-06-18] MEDS: AMIODARONE HCL 200 MG TABLET PO SCH ×2 (13:28→21:07)
[2021-06-18] MEDS: ZINC SULFATE 220 MG ( 50 ) CAPSULE PO SCH (13:29)
[2021-06-18] MEDS: LACTULOSE 20G/30ML UDC PO SCH ×2 (15:30→21:04)
[2021-06-18] MEDS ORDERED: VANCOMYCIN 1 G PREMIX 200 ML IV NR (18:00)
[2021-06-19] VITALS (27 sets, daily range): BP systolic 132–152; BP diastolic 58–99
[2021-06-19] MEDS: LACTULOSE 20G/30ML UDC PO SCH ×3 (05:51→21:06)
[2021-06-19] MEDS: CARVEDILOL 3.125 MG TABLET PO SCH ×2 (06:39→17:13)
[2021-06-19 07:04] LABS: BASOPHILS % 0.8 % (0.0-2.0); EOSINOPHILS % 3.1 % (0.0-5.0); HEMATOCRIT. 32.7 % (42.0-52.0); HEMOGLOBIN. 10.2 g/dL (14.0-18.0); LYMPHOCYTES % 8.3 % (20.0-50.0); MEAN CORPUSCULAR HEMOGLOBIN 27.5 pg (28.0-32.0); MEAN CORPUSCULAR VOLUME 88.5 fL (80.0-94.0); MEAN PLATELET VOLUME 8.3 fl (7.4-10.4); MONOCYTES % 8.1 % (2.0-8.0); NEUTROPHILS % 79.7 % (40.0-76.0); PLATELET 231 x1000/uL (130-400); RED CELL DISTRIBUTION WIDTH 18.8 % (11.6-14.6)
[2021-06-19] MEDS ORDERED: LIDOCAINE HCL 1% 30ML VIAL (10MG/ML) ONE (07:27)
[2021-06-19] MEDS ORDERED: HEPARIN 1000 UNITS/ML 10ML ONE (07:27)
[2021-06-19] MEDS ORDERED: FENTANYL CITRATE/PF 50MCG/ML 2ML VIAL ONE (07:33)
[2021-06-19] MEDS ORDERED: FENTANYL CITRATE/PF 50MCG/ML 2ML VIAL IV ONE (08:00)
[2021-06-19] MEDS: CHOLECALCIFEROL (D3) 1000 UNIT TABLET PO SCH (08:56)
[2021-06-19] MEDS: SEVELAMER CARBONATE 800 MG TABLET PO SCH ×3 (08:56→17:12)
[2021-06-19] MEDS: APIXABAN 2.5 MG TABLET PO SCH (08:57)
[2021-06-19] MEDS: ASCORBIC ACID 500 MG TABLET PO SCH ×2 (08:57→21:06)
[2021-06-19] MEDS: AMIODARONE HCL 200 MG TABLET PO SCH ×2 (08:57→21:06)
[2021-06-19] MEDS: CLOPIDOGREL 75MG TABLET PO SCH (08:57)
[2021-06-19] MEDS: ZINC SULFATE 220 MG ( 50 ) CAPSULE PO SCH (08:57)
[2021-06-19] MEDS: FAMOTIDINE 20MG TABLET PO SCH (08:57)
[2021-06-19] MEDS: MIDODRINE HCL 5MG TABLET PO SCH ×3 (09:00→16:32)
[2021-06-20] VITALS (15 sets, daily range): BP systolic 129–157; BP diastolic 72–99
[2021-06-20] MEDS: LACTULOSE 20G/30ML UDC PO SCH ×5 (05:25→21:00)
[2021-06-20] MEDS: CARVEDILOL 3.125 MG TABLET PO SCH ×2 (05:26→17:33)
[2021-06-20 06:50] LABS: BASOPHILS % 0.8 % (0.0-2.0); EOSINOPHILS % 1.1 % (0.0-5.0); HEMATOCRIT. 32.2 % (42.0-52.0); HEMOGLOBIN. 9.9 g/dL (14.0-18.0); LYMPHOCYTES % 8.9 % (20.0-50.0); MEAN CORPUSCULAR HEMOGLOBIN 27.2 pg (28.0-32.0); MEAN CORPUSCULAR VOLUME 88.3 fL (80.0-94.0); MEAN PLATELET VOLUME 8.3 fl (7.4-10.4); NEUTROPHILS % 83.2 % (40.0-76.0); PLATELET 246 x1000/uL (130-400); RED BLOOD CELL COUNT 3.64 mill/uL (4.7-6.1); RED CELL DISTRIBUTION WIDTH 18.5 % (11.6-14.6)
[2021-06-20] MEDS: SEVELAMER CARBONATE 800 MG TABLET PO SCH ×3 (07:20→16:45)
[2021-06-20] MEDS: AMIODARONE HCL 200 MG TABLET PO SCH ×2 (08:22→21:42)
[2021-06-20] MEDS: FAMOTIDINE 20MG TABLET PO SCH (08:22)
[2021-06-20] MEDS: DOCUSATE SODIUM 100MG CAPSULE PO PRN (08:22)
[2021-06-20] MEDS: ZINC SULFATE 220 MG ( 50 ) CAPSULE PO SCH (08:22)
[2021-06-20] MEDS: ASCORBIC ACID 500 MG TABLET PO SCH ×2 (08:22→21:42)
[2021-06-20] MEDS: MIDODRINE HCL 5MG TABLET PO SCH ×3 (08:22→16:45)
[2021-06-20] MEDS: CHOLECALCIFEROL (D3) 1000 UNIT TABLET PO SCH (08:22)
[2021-06-20] MEDS ORDERED: LIDOCAINE HCL 1% 10 MG/ML 10ML VIAL ONE (10:12)
[2021-06-20] MEDS ORDERED: VANCOMYCIN 1 G PREMIX 200 ML IV SCH (15:00)
[2021-06-20] MEDS: APIXABAN 2.5 MG TABLET PO SCH (21:42)
[2021-06-21] VITALS (16 sets, daily range): BP systolic 127–158; BP diastolic 66–102
[2021-06-21] MEDS: CARVEDILOL 3.125 MG TABLET PO SCH (05:48)
[2021-06-21] MEDS: LACTULOSE 20G/30ML UDC PO SCH ×3 (06:00→22:00)
[2021-06-21] MEDS: FAMOTIDINE 20MG TABLET PO SCH (08:13)
[2021-06-21] MEDS: ZINC SULFATE 220 MG ( 50 ) CAPSULE PO SCH (08:13)
[2021-06-21] MEDS: SEVELAMER CARBONATE 800 MG TABLET PO SCH ×3 (08:13→17:11)
[2021-06-21] MEDS: POLYETHYLENE GLYCOL 3350 (17GM) 1 DOSE PACK PO SCH ×2 (08:13→09:00)
[2021-06-21] MEDS: CHOLECALCIFEROL (D3) 1000 UNIT TABLET PO SCH (08:13)
[2021-06-21] MEDS: ASCORBIC ACID 500 MG TABLET PO SCH ×2 (08:13→20:45)
[2021-06-21] MEDS: AMIODARONE HCL 200 MG TABLET PO SCH ×2 (08:13→20:45)
[2021-06-21] MEDS: APIXABAN 2.5 MG TABLET PO SCH ×2 (08:13→20:45)
[2021-06-21] MEDS: MIDODRINE HCL 5MG TABLET PO SCH (08:14)
[2021-06-21 08:54] LABS: HEMATOCRIT. 32.7 % (42.0-52.0); MEAN CORPUSCULAR HEMOGLOBIN 27.1 pg (28.0-32.0); MEAN PLATELET VOLUME 8.3 fl (7.4-10.4); PLATELET 232 x1000/uL (130-400); RED BLOOD CELL COUNT 3.68 mill/uL (4.7-6.1); RED CELL DISTRIBUTION WIDTH 19.1 % (11.6-14.6)
[2021-06-21] MEDS: CARVEDILOL 6.25 MG TABLET PO SCH (17:12)
[2021-06-21 18:37] LABS: PLATELET ESTIMATE NORMAL
[2021-06-22] VITALS (17 sets, daily range): BP systolic 111–157; BP diastolic 40–116
[2021-06-22] MEDS: LACTULOSE 20G/30ML UDC PO SCH ×2 (05:47→14:00)
[2021-06-22] MEDS: CARVEDILOL 6.25 MG TABLET PO SCH ×2 (05:48→18:00)
[2021-06-22 06:47] LABS: HEMATOCRIT. 31.4 % (42.0-52.0); HEMOGLOBIN. 9.9 g/dL (14.0-18.0); MEAN CORPUSCULAR HEMOGLOBIN 28.2 pg (28.0-32.0); MEAN CORPUSCULAR VOLUME 89.7 fL (80.0-94.0); MEAN PLATELET VOLUME 8.6 fl (7.4-10.4); PLATELET 222 x1000/uL (130-400); RED CELL DISTRIBUTION WIDTH 19.2 % (11.6-14.6)
[2021-06-22] MEDS: POLYETHYLENE GLYCOL 3350 (17GM) 1 DOSE PACK PO SCH (07:51)
[2021-06-22] MEDS: ZINC SULFATE 220 MG ( 50 ) CAPSULE PO SCH (08:41)
[2021-06-22] MEDS: SEVELAMER CARBONATE 800 MG TABLET PO SCH ×3 (08:41→17:17)
[2021-06-22] MEDS: FAMOTIDINE 20MG TABLET PO SCH (08:41)
[2021-06-22] MEDS: ASCORBIC ACID 500 MG TABLET PO SCH ×2 (08:41→21:18)
[2021-06-22] MEDS: CHOLECALCIFEROL (D3) 1000 UNIT TABLET PO SCH (08:41)
[2021-06-22] MEDS: APIXABAN 2.5 MG TABLET PO SCH ×2 (08:42→21:18)
[2021-06-22] MEDS ORDERED: AMIODARONE HCL 200 MG TABLET PO SCH (09:00)
[2021-06-22 15:05] LABS: PLATELET ESTIMATE NORMAL
[2021-06-22] MEDS ORDERED: FLUT1AER INH (16:34)
[2021-06-22] MEDS ORDERED: ATOR40TA70 MT (16:36)
[2021-06-22] MEDS ORDERED: CARV12.545 MT (16:38)
[2021-06-22] MEDS ORDERED: CLON0.2T PO (16:38)
[2021-06-22] MEDS ORDERED: FURO40TA5 PO (16:42)
[2021-06-22] MEDS ORDERED: FERR325T6 PO (16:42)
[2021-06-22] MEDS ORDERED: GABA-532 PO (16:43)
[2021-06-22] MEDS ORDERED: HYDR-4134 PO (16:43)
[2021-06-22] MEDS ORDERED: ISOS60TA76 PO (16:44)
[2021-06-22] MEDS ORDERED: LOSA50TA41 PO (16:44)
[2021-06-22] MEDS ORDERED: PANT40TA51 PO (16:47)
[2021-06-22] MEDS ORDERED: METO2.5T2 PO (16:47)
[2021-06-22] MEDS ORDERED: MAGN200T5 PO (16:47)
[2021-06-22] MEDS ORDERED: POTA-79 PO (16:49)
[2021-06-22] MEDS ORDERED: SPIR50TA5 PO (16:52)
[2021-06-22] MEDS ORDERED: RISP0.2514 MT (16:52)
[2021-06-22] MEDS ORDERED: HYDR-4001 PO (16:52)
[2021-06-22] MEDS ORDERED: TIZA-191 PO (16:52)
[2021-06-22] MEDS ORDERED: VANCOMYCIN 1 G PREMIX 200 ML IV NR (18:00)
== END 2021-06-22 22:11 | disposition home health service (06) | DRG 466 ==
LOC: ER 10:13 → 8WST 11:54 → EDBEDREQ 12:14 → EDBEDREQTM 12:14 → SUPCPDRO 13:21 → ENRESERV 14:04 → 3WST 06-13 15:05
PROVIDERS: ADMIT Internal Medicine; ATTEND Internal Medicine
PROC: 5A1D70Z Performance of Urinary Filtration, Intermittent, Less than 6 Hours Per Day (ICD-10-PCS; 2021-06-11)
PROC: 5A1D70Z Performance of Urinary Filtration, Intermittent, Less than 6 Hours Per Day (ICD-10-PCS; 2021-06-12)
PROC: 5A2204Z Restoration of Cardiac Rhythm, Single (ICD-10-PCS; 2021-06-13)
PROC: 02HV33Z Insertion of Infusion Device into Superior Vena Cava, Percutaneous Approach (ICD-10-PCS; principal; 2021-06-14)
PROC: B548ZZA Ultrasonography of Superior Vena Cava, Guidance (ICD-10-PCS; 2021-06-14)
PROC: B5181ZA Fluoroscopy of Superior Vena Cava using Low Osmolar Contrast, Guidance (ICD-10-PCS; 2021-06-14)
PROC: 02PYX3Z Removal of Infusion Device from Great Vessel, External Approach (ICD-10-PCS; 2021-06-14)
PROC: 5A1D70Z Performance of Urinary Filtration, Intermittent, Less than 6 Hours Per Day (ICD-10-PCS; 2021-06-14)
PROC: 5A1D70Z Performance of Urinary Filtration, Intermittent, Less than 6 Hours Per Day (ICD-10-PCS; 2021-06-15)
PROC: 5A1D70Z Performance of Urinary Filtration, Intermittent, Less than 6 Hours Per Day (ICD-10-PCS; 2021-06-18)
PROC: 02PYX3Z Removal of Infusion Device from Great Vessel, External Approach (ICD-10-PCS; 2021-06-19)
PROC: 0JH63XZ Insertion of Tunneled Vascular Access Device into Chest Subcutaneous Tissue and Fascia, Percutaneous Approach (ICD-10-PCS; 2021-06-19)
PROC: 02H633Z Insertion of Infusion Device into Right Atrium, Percutaneous Approach (ICD-10-PCS; 2021-06-19)
PROC: B5181ZA Fluoroscopy of Superior Vena Cava using Low Osmolar Contrast, Guidance (ICD-10-PCS; 2021-06-19)
PROC: B548ZZA Ultrasonography of Superior Vena Cava, Guidance (ICD-10-PCS; 2021-06-19)
PROC: 5A1D70Z Performance of Urinary Filtration, Intermittent, Less than 6 Hours Per Day (ICD-10-PCS; 2021-06-20)
PROC: 5A1D70Z Performance of Urinary Filtration, Intermittent, Less than 6 Hours Per Day (ICD-10-PCS; 2021-06-22)
DX: T82.7XXA Infection and inflammatory reaction due to other cardiac and vascular devices, implants and grafts, initial encounter (principal); N18.6 End stage renal disease; A41.02 Sepsis due to Methicillin resistant Staphylococcus aureus; R65.21 Severe sepsis with septic shock; I21.4 Non-ST elevation (NSTEMI) myocardial infarction; I50.23 Acute on chronic systolic (congestive) heart failure; E43 Unspecified severe protein-calorie malnutrition; I47.2 Ventricular tachycardia; D63.8 Anemia in other chronic diseases classified elsewhere; E83.51 Hypocalcemia; I82.432 Acute embolism and thrombosis of left popliteal vein; I13.2 Hypertensive heart and chronic kidney disease with heart failure and with stage 5 chronic kidney disease, or end stage renal disease; D69.6 Thrombocytopenia, unspecified; E87.1 Hypo-osmolality and hyponatremia; E11.22 Type 2 diabetes mellitus with diabetic chronic kidney disease; E03.9 Hypothyroidism, unspecified; E78.5 Hyperlipidemia, unspecified; G47.33 Obstructive sleep apnea (adult) (pediatric); I25.10 Atherosclerotic heart disease of native coronary artery without angina pectoris; I25.5 Ischemic cardiomyopathy; I48.19 Other persistent atrial fibrillation; I48.92 Unspecified atrial flutter; N40.0 Benign prostatic hyperplasia without lower urinary tract symptoms; K74.60 Unspecified cirrhosis of liver; E66.01 Morbid (severe) obesity due to excess calories; F17.210 Nicotine dependence, cigarettes, uncomplicated; E11.42 Type 2 diabetes mellitus with diabetic polyneuropathy; I27.20 Pulmonary hypertension, unspecified; E05.90 Thyrotoxicosis, unspecified without thyrotoxic crisis or storm; R26.9 Unspecified abnormalities of gait and mobility; R53.81 Other malaise; I49.3 Ventricular premature depolarization; J44.1 Chronic obstructive pulmonary disease with (acute) exacerbation; E78.00 Pure hypercholesterolemia, unspecified; L89.156 Pressure-induced deep tissue damage of sacral region; S51.801A Unspecified open wound of right forearm, initial encounter; X58.XXXA Exposure to other specified factors, initial encounter; I34.0 Nonrheumatic mitral (valve) insufficiency; S71.112A Laceration without foreign body, left thigh, initial encounter; K21.9 Gastro-esophageal reflux disease without esophagitis; Z68.39 Body mass index [BMI] 39.0-39.9, adult; I25.2 Old myocardial infarction; Z99.2 Dependence on renal dialysis; Z99.81 Dependence on supplemental oxygen; Z79.01 Long term (current) use of anticoagulants; Z79.899 Other long term (current) drug therapy; Z82.49 Family history of ischemic heart disease and other diseases of the circulatory system; Z95.0 Presence of cardiac pacemaker; Z95.5 Presence of coronary angioplasty implant and graft; Y93.89 Activity, other specified; Y92.89 Other specified places as the place of occurrence of the external cause; Y99.8 Other external cause status
CPT/HCPCS: 12001; 36415; 36556; 36558; 36589; 71045; 73200; 76937; 77001; 80048; 80053; 80061; 80076; 80202; 82040; 82550; 82553; 83036; 83605; 83880; 84134; 84145; 84484; 85025; 86705; 86709; 86803; 87070; 87077; 87186; 87340; 87426; 92960; 93005; 93312; 93970; 93971; 97116; 97162; 97166; 97530; 99152; 99153; 99291; A6261; C1725; C1750; C1752; C1769; C1887; J1250; J1642; J1644; J1650; J2250; J2370; J2543; J3010; J3370; J3490; J7040; J7060; J7070; G0500

== ENCOUNTER 2022-01-30 15:26 | Inpatient (IN) | payer MEDICARE, MEDICAID ==
[~2022-01-30] VITALS: Ht 180.3 cm; Wt 116.6 kg
[~2022-01-30 15:26] MED LIST changes: +ATOR40TA70 MT; +CARV12.545 MT; +CLON0.2T PO; -COR6 PO; -FAMO20TA8 PO; +FERR325T6 PO; +FLUT1AER INH; -FLUT1DIS3 INH; +HYDR-4001 PO; +HYDR-4134 PO; +ISOS60TA76 PO; -LOSA50TA41 MT; +LOSA50TA41 PO; +MAGN200T5 PO; +METO2.5T2 PO; +PANT40TA51 PO; +POTA-79 PO; -POTA20TA82 PO; -PROM6.254 MT; +RISP0.2514 MT; +SPIR50TA5 PO; +TIZA-191 PO; -TUSSL MT
[2022-01-30 16:54] LABS: EOSINOPHILS % 0.3 % (0.0-5.0); HEMOGLOBIN. 11.7 g/dL (14.0-18.0); LYMPHOCYTES % 7.9 % (20.0-50.0); MEAN CORPUSCULAR HEMOGLOBIN 31.2 pg (28.0-32.0); MEAN CORPUSCULAR VOLUME 96.3 fL (80.0-94.0); MEAN PLATELET VOLUME 9.7 fl (7.4-10.4); NEUTROPHILS % 83.8 % (40.0-76.0); PLATELET 126 x1000/uL (130-400); RED BLOOD CELL COUNT 3.74 mill/uL (4.7-6.1); RED CELL DISTRIBUTION WIDTH 15.1 % (11.6-14.6)
[2022-01-30 17:01] LABS: CHLORIDE 106 mEq/L (98-107)
[2022-01-30 17:02] LABS: INR 1.2; PROTHROMBIN TIME 12.7 sec (9.6-11.0)
[2022-01-30] MEDS ORDERED: PIPERACILLIN/TAZ 3.375G PREMIX 50 ML IV ONE (18:15)
[2022-01-30 18:19] LABS: CLARITY URINE CLOUDY (CLEAR); COLOR URINE YELLOW (YELLOW); KETONES URINE TRACE (NEGATIVE); LEUKOCYTE ESTERASE URINE 3+ (NEGATIVE); NITRITE URINE NEGATIVE (NEGATIVE); OCCULT BLOOD URINE 2+ (NEGATIVE); PROTEIN URINE 1+ (NEGATIVE); SPECIFIC GRAVITY URINE 1.018 (1.005-1.030)
[2022-01-30 23:35] VITALS: BP 108/76
[2022-01-31] MEDS ORDERED: SENNOSIDES/DOCUSATE SOD 8.6/50MG TABLET PO PRN (00:30)
[2022-01-31] MEDS ORDERED: HYDROCODONE/ACETAMINOPHEN 5/325MG TABLET PO PRN (00:30)
[2022-01-31 07:13] LABS: BASOPHILS % 1.2 % (0.0-2.0); HEMATOCRIT. 35.7 % (42.0-52.0); HEMOGLOBIN. 11.9 g/dL (14.0-18.0); LYMPHOCYTES % 16.1 % (20.0-50.0); MEAN CORPUSCULAR HEMOGLOBIN 31.7 pg (28.0-32.0); MEAN CORPUSCULAR VOLUME 95.3 fL (80.0-94.0); MEAN PLATELET VOLUME 9.2 fl (7.4-10.4); MONOCYTES % 11.2 % (2.0-8.0); NEUTROPHILS % 68.5 % (40.0-76.0); PLATELET 105 x1000/uL (130-400); RED BLOOD CELL COUNT 3.75 mill/uL (4.7-6.1); RED CELL DISTRIBUTION WIDTH 14.8 % (11.6-14.6)
[2022-01-31] MEDS ORDERED: PANTOPRAZOLE 40MG DR TABLET PO SCH (07:20)
[2022-01-31 07:34] LABS: CHLORIDE 105 mEq/L (98-107)
[2022-01-31 07:47] LABS: HDL CHOLESTEROL 45 mg/dL (40-59); LDL CHOLESTEROL 65 mg/dL (5-100)
[2022-01-31 08:00] VITALS: BP 125/78
[2022-01-31] MEDS: METOLAZONE 2.5MG TABLET PO SCH (09:00)
[2022-01-31] MEDS: HYDRALAZINE HCL 25MG TABLET PO SCH ×3 (09:00→17:00)
[2022-01-31] MEDS: ASPIRIN 81MG TABLET PO SCH ×2 (09:00→14:01)
[2022-01-31] MEDS: LOSARTAN POTASSIUM 50 MG TABLET PO SCH ×2 (09:00→17:00)
[2022-01-31] MEDS: CLOPIDOGREL 75MG TABLET PO SCH ×2 (09:00→14:01)
[2022-01-31] MEDS: SPIRONOLACTONE 50MG TABLET PO SCH (09:00)
[2022-01-31] MEDS: GABAPENTIN 300MG CAPSULE PO SCH ×3 (09:00→17:00)
[2022-01-31] MEDS: CARVEDILOL 12.5MG TABLET PO SCH ×2 (09:00→21:05)
[2022-01-31] MEDS: ISOSORBIDE MONONITRATE 60MG TABLET SR 24HR PO SCH (09:00)
[2022-01-31] MEDS ORDERED: ALTEPLASE 2MG/VIAL ITC NR (10:30)
[2022-01-31] MEDS ORDERED: CEFTRIAXONE 1 G PREMIX 50 ML IV SCH (10:45)
[2022-01-31 12:00] VITALS: BP 103/74
[2022-01-31] MEDS: TAMSULOSIN HCL 0.4MG SR CAPSULE PO SCH (14:00)
[2022-01-31] MEDS: FAMOTIDINE 20MG TABLET PO SCH (14:00)
[2022-01-31] MEDS: CEFTRIAXONE 1,000 MG in DEXTROSE 5% WATER 50 ML IV SCH (14:00)
[2022-01-31] MEDS: FERROUS SULFATE 325MG TABLET PO SCH (14:01)
[2022-01-31 16:00] VITALS: BP 107/79
[2022-01-31 20:05] VITALS: BP 114/75
[2022-01-31] MEDS: LACTULOSE 20G/30ML UDC PO PRN (21:04)
[2022-01-31] MEDS: ATORVASTATIN CALCIUM 40MG TABLET PO SCH (21:05)
[2022-01-31] MEDS: TERAZOSIN HCL 5MG CAPSULE PO SCH (21:06)
[2022-01-31] MEDS ORDERED: IPRATROPIUM/ALBUTEROL 0.5-3(2.5)MG/3ML NEB HHN PRN (21:15)
[2022-02-01] VITALS: BP 128/73
[2022-02-01] MEDS: IPRATROPIUM/ALBUTEROL 0.5-3(2.5)MG/3ML NEB HHN SCH ×2 (00:39→04:35)
[2022-02-01 04:00] VITALS: BP 134/75
[2022-02-01 08:00] VITALS: BP 127/64
[2022-02-01] MEDS ORDERED: FAMOTIDINE 20MG TABLET PO SCH (09:00)
[2022-02-01] MEDS: SPIRONOLACTONE 50MG TABLET PO SCH (09:33)
[2022-02-01] MEDS: FERROUS SULFATE 325MG TABLET PO SCH (09:33)
[2022-02-01] MEDS: HYDRALAZINE HCL 25MG TABLET PO SCH ×3 (09:34→17:00)
[2022-02-01] MEDS: ASPIRIN 81MG TABLET PO SCH (09:34)
[2022-02-01] MEDS: LOSARTAN POTASSIUM 50 MG TABLET PO SCH ×2 (09:34→17:00)
[2022-02-01] MEDS: FAMOTIDINE 20MG TABLET PO SCH (09:34)
[2022-02-01] MEDS: ISOSORBIDE MONONITRATE 60MG TABLET SR 24HR PO SCH (09:35)
[2022-02-01] MEDS: GABAPENTIN 300MG CAPSULE PO SCH ×2 (09:38→17:00)
[2022-02-01] MEDS: CLOPIDOGREL 75MG TABLET PO SCH (09:38)
[2022-02-01] MEDS: METOLAZONE 2.5MG TABLET PO SCH (09:38)
[2022-02-01] MEDS: TAMSULOSIN HCL 0.4MG SR CAPSULE PO SCH (09:39)
[2022-02-01] MEDS: CEFTRIAXONE 1,000 MG in DEXTROSE 5% WATER 50 ML IV SCH (11:00)
[2022-02-01 11:22] LABS: BASOPHILS % 1.1 % (0.0-2.0); EOSINOPHILS % 1.9 % (0.0-5.0); HEMATOCRIT. 36.1 % (42.0-52.0); HEMOGLOBIN. 11.6 g/dL (14.0-18.0); LYMPHOCYTES % 11.5 % (20.0-50.0); MEAN CORPUSCULAR HEMOGLOBIN 30.9 pg (28.0-32.0); MEAN CORPUSCULAR VOLUME 96.2 fL (80.0-94.0); MEAN PLATELET VOLUME 8.9 fl (7.4-10.4); MONOCYTES % 9.4 % (2.0-8.0); NEUTROPHILS % 76.1 % (40.0-76.0); PLATELET 103 x1000/uL (130-400); RED BLOOD CELL COUNT 3.75 mill/uL (4.7-6.1)
[2022-02-01 12:00] VITALS: BP 132/59
[2022-02-01 12:21] LABS: HEPATITIS B SURFACE ANTIGEN NEGATIVE
[2022-02-01] MEDS ORDERED: DILTIAZEM HCL 5MG/ML 10ML VIAL IV NR (13:45)
[2022-02-01] MEDS: METHYLPREDNISOLONE SOD SUCC 40 MG/ML VIAL IV SCH ×2 (14:00→21:38)
[2022-02-01 16:00] VITALS: BP 126/54
[2022-02-01] MEDS: IPRATROPIUM BROMIDE (0.02%) 0.5MG/2.5ML NEB HHN SCH ×2 (16:37→20:16)
[2022-02-01 20:00] VITALS: BP 134/85
[2022-02-01] MEDS: ATORVASTATIN CALCIUM 40MG TABLET PO SCH (21:38)
[2022-02-01] MEDS: TERAZOSIN HCL 5MG CAPSULE PO SCH (21:39)
[2022-02-01] MEDS: CARVEDILOL 12.5MG TABLET PO SCH (21:40)
[2022-02-02] VITALS: BP 101/75
[2022-02-02] MEDS: IPRATROPIUM BROMIDE (0.02%) 0.5MG/2.5ML NEB HHN SCH ×4 (01:02→21:04)
[2022-02-02 04:00] VITALS: BP 106/79
[2022-02-02] MEDS: METHYLPREDNISOLONE SOD SUCC 40 MG/ML VIAL IV SCH ×3 (05:08→21:49)
[2022-02-02 05:45] LABS: HEMATOCRIT. 36.1 % (42.0-52.0); HEMOGLOBIN. 11.7 g/dL (14.0-18.0); MEAN CORPUSCULAR HEMOGLOBIN 31.2 pg (28.0-32.0); MEAN CORPUSCULAR VOLUME 95.7 fL (80.0-94.0); MEAN PLATELET VOLUME 9.5 fl (7.4-10.4); PLATELET 109 x1000/uL (130-400); RED BLOOD CELL COUNT 3.77 mill/uL (4.7-6.1); RED CELL DISTRIBUTION WIDTH 15.1 % (11.6-14.6)
[2022-02-02 08:20] VITALS: BP 105/69
[2022-02-02] MEDS: CARVEDILOL 12.5MG TABLET PO SCH ×3 (08:54→21:00)
[2022-02-02] MEDS: TAMSULOSIN HCL 0.4MG SR CAPSULE PO SCH (08:54)
[2022-02-02] MEDS: GABAPENTIN 300MG CAPSULE PO SCH ×2 (08:54→17:00)
[2022-02-02] MEDS: FERROUS SULFATE 325MG TABLET PO SCH (08:54)
[2022-02-02] MEDS: CLOPIDOGREL 75MG TABLET PO SCH (08:54)
[2022-02-02] MEDS: HYDRALAZINE HCL 25MG TABLET PO SCH ×3 (08:54→16:51)
[2022-02-02] MEDS: FAMOTIDINE 20MG TABLET PO SCH (08:54)
[2022-02-02] MEDS: ASPIRIN 81MG TABLET PO SCH (08:54)
[2022-02-02] MEDS: LOSARTAN POTASSIUM 50 MG TABLET PO SCH (08:55)
[2022-02-02] MEDS: ISOSORBIDE MONONITRATE 60MG TABLET SR 24HR PO SCH (08:55)
[2022-02-02] MEDS: CEFTRIAXONE 1,000 MG in DEXTROSE 5% WATER 50 ML IV SCH (10:14)
[2022-02-02 11:36] VITALS: BP 109/64
[2022-02-02] MEDS ORDERED: IPRATROPIUM BROMIDE (0.02%) 0.5MG/2.5ML NEB HHN PRN (13:15)
[2022-02-02 13:51] LABS: PLATELET ESTIMATE SLIGHTLY DECREASED
[2022-02-02 15:40] VITALS: BP 119/89
[2022-02-02] MEDS: LOSARTAN POTASSIUM 25 MG TABLET PO SCH (16:51)
[2022-02-02 20:00] VITALS: BP 101/67
[2022-02-02] MEDS: TERAZOSIN HCL 5MG CAPSULE PO SCH (21:00)
[2022-02-02] MEDS ORDERED: NALOXONE HCL 0.4MG/ML VIAL IV PRN (21:30)
[2022-02-02] MEDS: LACTULOSE 20G/30ML UDC PO PRN (21:49)
[2022-02-02] MEDS: ATORVASTATIN CALCIUM 40MG TABLET PO SCH (21:49)
[2022-02-03] VITALS: BP 110/67
[2022-02-03] MEDS: IPRATROPIUM BROMIDE (0.02%) 0.5MG/2.5ML NEB HHN SCH ×4 (02:20→21:05)
[2022-02-03] MEDS: METHYLPREDNISOLONE SOD SUCC 40 MG/ML VIAL IV SCH ×2 (06:00→15:27)
[2022-02-03 06:32] LABS: HEMATOCRIT. 36.2 % (42.0-52.0); HEMOGLOBIN. 11.7 g/dL (14.0-18.0); MEAN CORPUSCULAR HEMOGLOBIN 31.3 pg (28.0-32.0); MEAN CORPUSCULAR VOLUME 96.8 fL (80.0-94.0); MEAN PLATELET VOLUME 9.5 fl (7.4-10.4); PLATELET 118 x1000/uL (130-400); RED BLOOD CELL COUNT 3.74 mill/uL (4.7-6.1); RED CELL DISTRIBUTION WIDTH 14.9 % (11.6-14.6)
[2022-02-03 06:45] LABS: CHLORIDE 105 mEq/L (98-107)
[2022-02-03] MEDS: HYDRALAZINE HCL 25MG TABLET PO SCH ×3 (09:00→17:00)
[2022-02-03] MEDS: ISOSORBIDE MONONITRATE 60MG TABLET SR 24HR PO SCH (09:00)
[2022-02-03] MEDS: GABAPENTIN 300MG CAPSULE PO SCH ×2 (09:00→17:00)
[2022-02-03] MEDS: LOSARTAN POTASSIUM 25 MG TABLET PO SCH ×2 (09:00→17:00)
[2022-02-03] MEDS: ASPIRIN 81MG TABLET PO SCH (09:00)
[2022-02-03 10:38] VITALS: BP 108/71
[2022-02-03] MEDS: CEFTRIAXONE 1,000 MG in DEXTROSE 5% WATER 50 ML IV SCH (10:51)
[2022-02-03] MEDS: TAMSULOSIN HCL 0.4MG SR CAPSULE PO SCH (10:55)
[2022-02-03] MEDS: FERROUS SULFATE 325MG TABLET PO SCH (10:55)
[2022-02-03] MEDS: CARVEDILOL 12.5MG TABLET PO SCH ×2 (10:56→21:00)
[2022-02-03] MEDS: FAMOTIDINE 20MG TABLET PO SCH (10:56)
[2022-02-03] MEDS: CLOPIDOGREL 75MG TABLET PO SCH (11:10)
[2022-02-03 13:30] VITALS: BP 105/77
[2022-02-03 16:00] VITALS: BP 102/73
[2022-02-03] MEDS: TERAZOSIN HCL 5MG CAPSULE PO SCH (21:00)
[2022-02-03 22:00] VITALS: BP 99/72
[2022-02-04] VITALS: BP 125/61
[2022-02-04] MEDS: ATORVASTATIN CALCIUM 40MG TABLET PO SCH ×2 (00:06→21:00)
[2022-02-04] MEDS: METHYLPREDNISOLONE SOD SUCC 40 MG/ML VIAL IV SCH ×4 (00:08→22:00)
[2022-02-04] MEDS: IPRATROPIUM BROMIDE (0.02%) 0.5MG/2.5ML NEB HHN SCH ×2 (01:06→09:06)
[2022-02-04 04:00] VITALS: BP 125/61
[2022-02-04 06:44] LABS: PLATELET ESTIMATE DECREASED
[2022-02-04 07:06] LABS: HEMATOCRIT. 37.8 % (42.0-52.0); HEMOGLOBIN. 12.4 g/dL (14.0-18.0); MEAN CORPUSCULAR HEMOGLOBIN 31.4 pg (28.0-32.0); MEAN CORPUSCULAR VOLUME 95.5 fL (80.0-94.0); MEAN PLATELET VOLUME 9.7 fl (7.4-10.4); PLATELET 119 x1000/uL (130-400); RED BLOOD CELL COUNT 3.96 mill/uL (4.7-6.1)
[2022-02-04 08:00] VITALS: BP 98/77
[2022-02-04] MEDS: FAMOTIDINE 20MG TABLET PO SCH ×2 (09:00→17:14)
[2022-02-04] MEDS: TAMSULOSIN HCL 0.4MG SR CAPSULE PO SCH (09:00)
[2022-02-04] MEDS: HYDRALAZINE HCL 25MG TABLET PO SCH ×3 (09:00→16:48)
[2022-02-04] MEDS: FERROUS SULFATE 325MG TABLET PO SCH (09:00)
[2022-02-04] MEDS: ISOSORBIDE MONONITRATE 60MG TABLET SR 24HR PO SCH (09:00)
[2022-02-04] MEDS: CLOPIDOGREL 75MG TABLET PO SCH (09:00)
[2022-02-04] MEDS: GABAPENTIN 300MG CAPSULE PO SCH ×2 (09:00→16:48)
[2022-02-04] MEDS: ASPIRIN 81MG TABLET PO SCH (09:00)
[2022-02-04] MEDS: LOSARTAN POTASSIUM 25 MG TABLET PO SCH (09:00)
[2022-02-04] MEDS: CARVEDILOL 12.5MG TABLET PO SCH ×2 (09:00→21:00)
[2022-02-04 12:00] VITALS: BP 122/75
[2022-02-04] MEDS ORDERED: CEPH500C2 MT (12:42)
[2022-02-04] MEDS ORDERED: COR12 PO (12:42)
[2022-02-04] MEDS: CEFTRIAXONE 1,000 MG in DEXTROSE 5% WATER 50 ML IV SCH (13:22)
[2022-02-04] MEDS: IPRATROPIUM/ALBUTEROL 0.5-3(2.5)MG/3ML NEB HHN SCH ×2 (15:04→21:00)
[2022-02-04 16:00] VITALS: BP 117/63
[2022-02-04] MEDS: GUAIFENESIN-DM 200MG-20MG/10ML UDC PO PRN ×2 (17:12→23:16)
[2022-02-04 20:00] VITALS: BP 98/74
[2022-02-04] MEDS: TERAZOSIN HCL 5MG CAPSULE PO SCH (21:00)
[2022-02-04 21:52] LABS: PLATELET ESTIMATE DECREASED
[2022-02-05] VITALS: BP 107/78
[2022-02-05] MEDS: IPRATROPIUM/ALBUTEROL 0.5-3(2.5)MG/3ML NEB HHN SCH ×5 (03:15→16:00)
[2022-02-05 04:00] VITALS: BP 104/69
[2022-02-05] MEDS: METHYLPREDNISOLONE SOD SUCC 40 MG/ML VIAL IV SCH ×2 (06:00→14:00)
[2022-02-05 06:50] LABS: HEMATOCRIT. 37.2 % (42.0-52.0); HEMOGLOBIN. 12.2 g/dL (14.0-18.0); MEAN CORPUSCULAR HEMOGLOBIN 31.1 pg (28.0-32.0); MEAN CORPUSCULAR VOLUME 94.9 fL (80.0-94.0); MEAN PLATELET VOLUME 9.9 fl (7.4-10.4); PLATELET 105 x1000/uL (130-400); RED BLOOD CELL COUNT 3.92 mill/uL (4.7-6.1); RED CELL DISTRIBUTION WIDTH 15.4 % (11.6-14.6)
[2022-02-05] MEDS ORDERED: LOSARTAN POTASSIUM 25 MG TABLET PO SCH (09:00)
[2022-02-05] MEDS ORDERED: ISOSORBIDE MONONITRATE 60MG TABLET SR 24HR PO SCH (09:00)
[2022-02-05] MEDS: CARVEDILOL 12.5MG TABLET PO SCH (09:00)
[2022-02-05] MEDS: HYDRALAZINE HCL 25MG TABLET PO SCH ×3 (09:00→16:45)
[2022-02-05] MEDS ORDERED: ISOSORBIDE MONONITRATE 30MG TABLET SR 24HR PO SCH (09:00)
[2022-02-05 09:21] VITALS: BP 99/54
[2022-02-05] MEDS: GUAIFENESIN-DM 200MG-20MG/10ML UDC PO PRN (09:27)
[2022-02-05] MEDS: TAMSULOSIN HCL 0.4MG SR CAPSULE PO SCH (09:29)
[2022-02-05] MEDS: ASPIRIN 81MG TABLET PO SCH (09:29)
[2022-02-05] MEDS: GABAPENTIN 300MG CAPSULE PO SCH ×2 (09:29→16:44)
[2022-02-05] MEDS: FERROUS SULFATE 325MG TABLET PO SCH (09:30)
[2022-02-05] MEDS: FAMOTIDINE 20MG TABLET PO SCH (09:30)
[2022-02-05] MEDS: CEFTRIAXONE 1,000 MG in DEXTROSE 5% WATER 50 ML IV SCH (11:00)
[2022-02-05 11:46] VITALS: BP 95/70
[2022-02-05 16:33] VITALS: BP 110/68
[2022-02-05 19:40] LABS: PLATELET ESTIMATE DECREASED
== END 2022-02-05 19:14 | disposition home or self-care (01) | DRG 720 ==
LOC: ER 15:26 → 6WST 21:47 → EDBEDREQ 21:50 → ENRESERV 22:07
PROVIDERS: ADMIT Internal Medicine; ATTEND Internal Medicine
PROC: 5A1D70Z Performance of Urinary Filtration, Intermittent, Less than 6 Hours Per Day (ICD-10-PCS; principal; 2022-01-31)
PROC: 5A1D70Z Performance of Urinary Filtration, Intermittent, Less than 6 Hours Per Day (ICD-10-PCS; 2022-02-02)
PROC: 5A1D70Z Performance of Urinary Filtration, Intermittent, Less than 6 Hours Per Day (ICD-10-PCS; 2022-02-04)
DX: A41.51 Sepsis due to Escherichia coli [E. coli] (principal); J96.21 Acute and chronic respiratory failure with hypoxia; I13.2 Hypertensive heart and chronic kidney disease with heart failure and with stage 5 chronic kidney disease, or end stage renal disease; E44.1 Mild protein-calorie malnutrition; I47.2 Ventricular tachycardia; I42.9 Cardiomyopathy, unspecified; D69.6 Thrombocytopenia, unspecified; N18.6 End stage renal disease; E66.2 Morbid (severe) obesity with alveolar hypoventilation; A41.59 Other Gram-negative sepsis; N30.01 Acute cystitis with hematuria; E11.22 Type 2 diabetes mellitus with diabetic chronic kidney disease; E87.5 Hyperkalemia; I50.22 Chronic systolic (congestive) heart failure; J44.1 Chronic obstructive pulmonary disease with (acute) exacerbation; E78.00 Pure hypercholesterolemia, unspecified; E05.90 Thyrotoxicosis, unspecified without thyrotoxic crisis or storm; D64.9 Anemia, unspecified; I34.0 Nonrheumatic mitral (valve) insufficiency; N48.89 Other specified disorders of penis; I48.19 Other persistent atrial fibrillation; E78.5 Hyperlipidemia, unspecified; N28.1 Cyst of kidney, acquired; N40.0 Benign prostatic hyperplasia without lower urinary tract symptoms; E11.51 Type 2 diabetes mellitus with diabetic peripheral angiopathy without gangrene; I25.10 Atherosclerotic heart disease of native coronary artery without angina pectoris; Z99.2 Dependence on renal dialysis; Z99.81 Dependence on supplemental oxygen; Z95.810 Presence of automatic (implantable) cardiac defibrillator; Z95.5 Presence of coronary angioplasty implant and graft; Z68.35 Body mass index [BMI] 35.0-35.9, adult; Z87.891 Personal history of nicotine dependence; Z79.899 Other long term (current) drug therapy; Z79.82 Long term (current) use of aspirin; Z86.718 Personal history of other venous thrombosis and embolism; I25.2 Old myocardial infarction
CPT/HCPCS: 36415; 71045; 74176; 76770; 80048; 80053; 80061; 81003; 83036; 83605; 83735; 84145; 84443; 84484; 85025; 86705; 86709; 86803; 86850; 86900; 87077; 87186; 87340; 93005; 94640; 99291; J0696; J2543; J2920; J2997; J3490; J7060

== ENCOUNTER 2022-02-28 18:31 | Inpatient (IN) | payer MEDICARE, MEDICAID ==
[~2022-02-28] VITALS: Ht 180.3 cm; Wt 115.2 kg
[~2022-02-28 18:31] MED LIST changes: -CARV12.545 MT; +CEPH500C2 MT; +COR12 PO
[2022-02-28 20:46] LABS: BASOPHILS % 1.4 % (0.0-2.0); EOSINOPHILS % 5.1 % (0.0-5.0); HEMATOCRIT. 39.2 % (42.0-52.0); HEMOGLOBIN. 12.6 g/dL (14.0-18.0); LYMPHOCYTES % 20.7 % (20.0-50.0); MEAN CORPUSCULAR HEMOGLOBIN 31.3 pg (28.0-32.0); MEAN CORPUSCULAR VOLUME 97.2 fL (80.0-94.0); MONOCYTES % 8.1 % (2.0-8.0); NEUTROPHILS % 64.7 % (40.0-76.0); PLATELET 130 x1000/uL (130-400); RED BLOOD CELL COUNT 4.03 mill/uL (4.7-6.1); RED CELL DISTRIBUTION WIDTH 16.8 % (11.6-14.6)
[2022-02-28 20:57] LABS: INR 1.3; PARTIAL THROMBOPLASTIN TIME 28.1 sec (23.4-31.0); PROTHROMBIN TIME 13.8 sec (9.6-11.0)
[2022-02-28 20:59] LABS: CHLORIDE 105 mEq/L (98-107)
[2022-02-28 22:20] LABS: CHLORIDE 113 mEq/L (98-107); ETHANOL BLOOD < 10 mg/dL
[2022-02-28] MEDS ORDERED: ASPIRIN 325MG EC TABLET PO NR (23:00)
[2022-03-01] VITALS (21 sets, daily range): BP systolic 109–147; BP diastolic 45–101
[2022-03-01] MEDS ORDERED: NITROGLYCERIN 0.4MG TABLET SL SL PRN (02:45)
[2022-03-01] MEDS ORDERED: ALBUTEROL 6.7GM HFA INHALER ORI PRN (02:45)
[2022-03-01] MEDS ORDERED: SENNOSIDES 8.6MG TABLET PO PRN (02:45)
[2022-03-01] MEDS ORDERED: ACETAMINOPHEN 650MG/20.3ML UDC PO PRN (02:45)
[2022-03-01] MEDS ORDERED: HYDROCODONE/ACETAMINOPHEN 5/325MG TABLET PO PRN (02:45)
[2022-03-01] MEDS ORDERED: TRAMADOL 50MG TABLET PO PRN ×2 (02:45→15:30)
[2022-03-01] MEDS: HYDRALAZINE HCL 25MG TABLET PO SCH ×3 (06:17→21:27)
[2022-03-01] MEDS: GABAPENTIN 300MG CAPSULE PO SCH ×2 (06:17→11:21)
[2022-03-01] MEDS ORDERED: CLOPIDOGREL 75MG TABLET PO SCH (09:00)
[2022-03-01] MEDS ORDERED: ISOSORBIDE MONONITRATE 60MG TABLET SR 24HR PO SCH (09:00)
[2022-03-01] MEDS ORDERED: SPIRONOLACTONE 50MG TABLET PO SCH (09:00)
[2022-03-01] MEDS ORDERED: CLONIDINE 0.2MG TABLET PO SCH (09:00)
[2022-03-01] MEDS ORDERED: MAGNESIUM OXIDE 400MG TABLET PO SCH (09:00)
[2022-03-01] MEDS: TIZANIDINE HCL 2MG TABLET PO SCH ×2 (09:00→17:57)
[2022-03-01] MEDS: FUROSEMIDE 40MG TABLET PO SCH ×2 (09:00→21:00)
[2022-03-01] MEDS ORDERED: TERAZOSIN HCL 5MG CAPSULE PO SCH (09:00)
[2022-03-01] MEDS ORDERED: METOLAZONE 2.5MG TABLET PO SCH (09:00)
[2022-03-01] MEDS ORDERED: TAMSULOSIN HCL 0.4MG SR CAPSULE PO SCH (09:00)
[2022-03-01] MEDS: LOSARTAN POTASSIUM 50 MG TABLET PO SCH ×2 (09:00→18:00)
[2022-03-01] MEDS ORDERED: OXYBUTYNIN CHLORIDE 5MG TABLET PO SCH (09:00)
[2022-03-01] MEDS ORDERED: ASPIRIN 81MG TABLET PO SCH (09:00)
[2022-03-01] MEDS ORDERED: FERROUS SULFATE 325MG TABLET PO SCH (09:00)
[2022-03-01] MEDS ORDERED: FENTANYL CITRATE/PF 50MCG/ML 2ML VIAL ONE (09:59)
[2022-03-01] MEDS ORDERED: CEFAZOLIN 1000MG PREMIX 50 ML IV NR (10:00)
[2022-03-01] MEDS ORDERED: IPRATROPIUM/ALBUTEROL 0.5-3(2.5)MG/3ML NEB HHN PRN (10:00)
[2022-03-01] MEDS ORDERED: HEPARIN 1000 UNITS/ML 10ML ONE (10:04)
[2022-03-01] MEDS ORDERED: LIDOCAINE HCL/PF 1% 10 MG/ML 5ML VIAL ONE (10:04)
[2022-03-01] MEDS ORDERED: IOHEXOL-300 50 ML BOTTLE IV ONE (10:25)
[2022-03-01] MEDS ORDERED: FENTANYL CITRATE/PF 50MCG/ML 2ML VIAL IV ONE (10:45)
[2022-03-01] MEDS: RISPERIDONE 1MG TABLET PO SCH ×2 (11:21→21:14)
[2022-03-01] MEDS: PANTOPRAZOLE 40MG DR TABLET PO SCH ×2 (11:21→18:00)
[2022-03-01] MEDS: CARVEDILOL 12.5MG TABLET PO SCH ×2 (11:23→21:23)
[2022-03-01] MEDS: POTASSIUM CHLORIDE 20MEQ TABLET SR PO SCH ×2 (11:25→17:59)
[2022-03-01 11:47] LABS: BASOPHILS % 1.3 % (0.0-2.0); EOSINOPHILS % 1.6 % (0.0-5.0); HEMOGLOBIN. 12.3 g/dL (14.0-18.0); LYMPHOCYTES % 14.4 % (20.0-50.0); MEAN CORPUSCULAR HEMOGLOBIN 31.4 pg (28.0-32.0); MEAN CORPUSCULAR VOLUME 96.9 fL (80.0-94.0); MEAN PLATELET VOLUME 9.1 fl (7.4-10.4); MONOCYTES % 7.9 % (2.0-8.0); NEUTROPHILS % 74.8 % (40.0-76.0); PLATELET 123 x1000/uL (130-400); RED BLOOD CELL COUNT 3.92 mill/uL (4.7-6.1); RED CELL DISTRIBUTION WIDTH 16.6 % (11.6-14.6)
[2022-03-01 11:54] LABS: INR 1.4; PROTHROMBIN TIME 15.1 sec (9.6-11.0)
[2022-03-01] MEDS: DILTIAZEM HCL 60MG TABLET PO SCH ×3 (12:00→23:55)
[2022-03-01 12:10] LABS: PHOSPHORUS 5.3 mg/dL (2.5-4.9)
[2022-03-01] MEDS ORDERED: NALOXONE HCL 0.4MG/ML VIAL IV PRN (15:30)
[2022-03-01 18:34] LABS: HEPATITIS B SURFACE ANTIGEN NEGATIVE
[2022-03-01] MEDS ORDERED: ATORVASTATIN CALCIUM 40MG TABLET PO SCH (21:00)
[2022-03-02] VITALS: BP 98/66
[2022-03-02 02:00] VITALS: BP 93/47
[2022-03-02 04:00] VITALS: BP 114/67
[2022-03-02] MEDS: DILTIAZEM HCL 60MG TABLET PO SCH (05:06)
[2022-03-02] MEDS: HYDRALAZINE HCL 25MG TABLET PO SCH (05:06)
[2022-03-02] MEDS: GABAPENTIN 300MG CAPSULE PO SCH (05:06)
[2022-03-02 05:20] VITALS: BP 124/66
[2022-03-02 05:22] VITALS: BP 114/67
[2022-03-02 06:00] VITALS: BP 137/55
== END 2022-03-02 08:28 | disposition home or self-care (01) | DRG 466 ==
LOC: ER 18:31 → MICUSO 22:54 → 6WST 03-01 00:26 → 5EST 03-01 00:30
PROVIDERS: ADMIT Internal Medicine; ATTEND Internal Medicine
PROC: 0J2TXYZ Change Other Device in Trunk Subcutaneous Tissue and Fascia, External Approach (ICD-10-PCS; principal; 2022-03-01)
PROC: 5A09357 Assistance with Respiratory Ventilation, Less than 24 Consecutive Hours, Continuous Positive Airway Pressure (ICD-10-PCS; 2022-03-01)
PROC: 02PA33Z Removal of Infusion Device from Heart, Percutaneous Approach (ICD-10-PCS; 2022-03-01)
PROC: 02H633Z Insertion of Infusion Device into Right Atrium, Percutaneous Approach (ICD-10-PCS; 2022-03-01)
DX: T82.41XA Breakdown (mechanical) of vascular dialysis catheter, initial encounter (principal); N18.6 End stage renal disease; J96.21 Acute and chronic respiratory failure with hypoxia; I50.23 Acute on chronic systolic (congestive) heart failure; E44.1 Mild protein-calorie malnutrition; I48.20 Chronic atrial fibrillation, unspecified; D63.1 Anemia in chronic kidney disease; I42.0 Dilated cardiomyopathy; G62.9 Polyneuropathy, unspecified; I13.2 Hypertensive heart and chronic kidney disease with heart failure and with stage 5 chronic kidney disease, or end stage renal disease; Z20.822 Contact with and (suspected) exposure to COVID-19; N40.0 Benign prostatic hyperplasia without lower urinary tract symptoms; I25.10 Atherosclerotic heart disease of native coronary artery without angina pectoris; D72.819 Decreased white blood cell count, unspecified; E66.9 Obesity, unspecified; E78.5 Hyperlipidemia, unspecified; J44.9 Chronic obstructive pulmonary disease, unspecified; G47.33 Obstructive sleep apnea (adult) (pediatric); Z91.15 Patient's noncompliance with renal dialysis; Z95.5 Presence of coronary angioplasty implant and graft; Z99.2 Dependence on renal dialysis; Z95.810 Presence of automatic (implantable) cardiac defibrillator; Z87.891 Personal history of nicotine dependence; Z68.35 Body mass index [BMI] 35.0-35.9, adult; Y83.2 Surgical operation with anastomosis, bypass or graft as the cause of abnormal reaction of the patient, or of later complication, without mention of misadventure at the time of the procedure; Y92.89 Other specified places as the place of occurrence of the external cause
CPT/HCPCS: 36415; 36581; 71045; 77001; 80048; 80053; 80320; 83880; 84100; 84484; 85025; 86705; 86709; 86803; 86850; 86900; 87340; 87426; 93005; 93306; 93970; 94660; 99152; 99153; 99291; C1750; C1769; J0690; J1644; J3010; J3490; Q9967; G0480; G0500